=== PATIENT | female | born 1940 | race Caucasian/White ===

== ENCOUNTER 2018-02-08 15:22 | Observation (INO) ==
--- NOTE | 2018-02-08 15:27 | Urgent Care Visit Notes ---
History of Present Illness - General Stated Complaint: N/V, Headache Time Seen by Provider: 02/08/18 15:26 - Related Data Home Medications Medication Instructions Recorded Confirmed Alendronate Sodium [Fosamax] 70 mg PO SA 09/03/17 09/03/17 Calcium Carbonate [Calcium] 600 mg PO DAILY 09/03/17 09/03/17 Donepezil [Aricept] 5 mg PO HS 09/03/17 09/03/17 Ergocalciferol (VITAMIN D2) 800 unit PO DAILY 09/03/17 09/03/17 [Vitamin D] Lisinopril/Hydrochlorothiazide 1 tab PO DAILY 09/03/17 09/03/17 [Zestoretic 10-12.5 mg Tablet] Multivitamin [One Daily 1 tab PO DAILY 09/03/17 09/03/17 Multivitamin] Omeprazole [PriLOSEC] 20 mg PO DAILY 09/03/17 09/03/17 Potassium Chloride [Klor-Con 10 meq PO DAILY 09/03/17 09/03/17 Sprinkle] predniSONE [PredniSONE] 60 mg PO DAILY 09/03/17 09/03/17 Allergies Allergy/AdvReac Type Severity Reaction Status Date / Time No Known Allergies Allergy Verified 09/03/17 10:30 Headache PMH - Past Medical History Medical history: Reports: cancer, hypertension Female Surgical History: Reports: appendectomy, hysterectomy, other Psychiatric history: Reports: no psych history - Social History Smoking Status: Former smoker Alcohol use: Reports: none Drug use: Reports: none
[2018-02-08] MEDS ORDERED: Metoclopramide 10 MG/2 ML VIAL IVP ONE (16:09)
[2018-02-08] MEDS ORDERED: 0.9 % Sodium Chloride 1,000 ML IVC ONE (16:09)
[2018-02-08 16:14] LABS: Basophils % 0.3 %; Eosinophils % 0.1 %; Hematocrit 48.2 % (35.3-44.9); Hemoglobin 15.9 g/dL (11.5-15.4); Immature Granulocytes % 0.2 % (0-4); Lymphocytes # 1.9 K/mcL (0.6-4.6); Lymphocytes % 21.3 %; Mean Corpuscular Hemoglobin 29.1 pg (28.0-33.3); Mean Corpuscular Volume 88.1 fL (83.0-100.0); Mean Platelet Volume 11.3 fL (9.4-12.4); Monocytes # 0.7 K/mcL (0.0-1.3); Monocytes % 8.1 %; Neutrophils # 6.1 K/mcL (1.6-8.9); Platelet Count 250 K/mcL (140-400); Red Blood Count 5.47 M/mcL (3.82-4.97); Red Cell Distribution Width 12.8 % (11.5-14.5)
--- NOTE | 2018-02-08 16:14 | Emergency Department Note ---
Disposition Clinical Impression: Generalized weakness, Unsteady gait Head ache Qualifiers: Headache type: unspecified Headache chronicity pattern: acute headache Intractability: intractable Qualified Code(s): R51 - Headache Nausea and vomiting Qualifiers: Vomiting type: unspecified Vomiting Intractability: intractable Qualified Code( s): R11.2 - Nausea with vomiting, unspecified Disposition: Admitted As Inpatient Condition: Fair Referrals: Sanchez,Srinivas Downing MD [Primary Care Provider] - Forms: ED Satisfaction Letter General Adult HPI - General Chief complaint: ED Nausea/Vomiting/Diarrhea Stated complaint: N/V, Headache Time Seen by Provider: 02/08/18 15:26 Source: EMS Mode of arrival: EMS Limitations: no limitations Vital Signs Reviewed: Yes - History of Present Illness HPI Narrative: Ms. Alas is a 78 yo F with a hxo subacute migraines for the last month and N/ V since Thursday. She describes her JHA as pounding in nature over the frontal region and behind the eyes. is concerned that she is becoming more unsteady on her feet. She has Sumatriptan prescribed but is unable to keep anything in her stomach. She denies, fevers, cough, SOB from her baseline. Pain Scale: 0 - Related Data Home Medications Medication Instructions Recorded Confirmed Alendronate Sodium [Fosamax] 70 mg PO SA 09/03/17 02/08/18 Calcium Carbonate [Calcium] 600 mg PO DAILY 09/03/17 02/08/18 Donepezil [Aricept] 5 mg PO HS 09/03/17 02/08/18 Ergocalciferol (VITAMIN D2) 800 unit PO DAILY 09/03/17 02/08/18 [Vitamin D] Lisinopril/Hydrochlorothiazide 1 tab PO DAILY 09/03/17 02/08/18 [Zestoretic 10-12.5 mg Tablet] Multivitamin [One Daily 1 tab PO DAILY 09/03/17 02/08/18 Multivitamin] Omeprazole [PriLOSEC] 20 mg PO DAILY 09/03/17 02/08/18 predniSONE [PredniSONE] 60 mg PO DAILY 09/03/17 02/08/18 NIFEdipine [Nifedipine ER] 30 mg PO DAILY 02/08/18 02/08/18 Potassium Chloride [K-Tab ER] 20 meq PO BID 02/08/18 02/08/18 Sertraline [Zoloft] 50 mg PO DAILY 02/08/18 02/08/18 Simvastatin 80 mg PO HS 02/08/18 02/08/18 Allergies Allergy/AdvReac Type Severity Reaction Status Date / Time No Known Allergies Allergy Verified 02/08/18 15:32 Constitutional: Reports: weakness. Denies: fever, chills ENT ED: Denies: congestion Cardiovascular: Denies: chest pain, palpitations Respiratory: Reports: dyspnea (chronic). Denies: cough Gastrointestinal: Reports: nausea, vomiting. Denies: abdominal pain, diarrhea, melena, hematochezia Genitourinary: Reports: hematuria. Denies: dysuria, frequency Neurological: Reports: headache, weakness, abnormal gait. Denies: numbness, paresthesias, confusion Past Medical History - Past Medical History Medical history: Reports: cancer, hypertension Surgical history: Reports: appendectomy, hysterectomy, other Psychiatric history: Reports: no psych history - Social History Smoking Status: Former smoker Smokeless Tobacco Status: No Alcohol use: Reports: none Drug use: Reports: none Physical Exam - General General appearance: alert, in no apparent distress Course Vital Signs Temperature 97.9 F 02/08/18 15:27 Pulse Rate 72 02/08/18 15:27 Respiratory Rate 14 02/08/18 15:27 Blood Pressure 166/87 02/08/18 15:27 O2 Sat by Pulse Oximetry 96 02/08/18 15:27 Temperature 97.9 F 02/08/18 15:27 Pulse Rate 66 02/08/18 17:14 Respiratory Rate 14 02/08/18 17:14 Blood Pressure 137/65 02/08/18 17:14 O2 Sat by Pulse Oximetry 95 02/08/18 17:14 Oxygen Delivery Oxygen Delivery Nasal Cannula Medical Decision Making - Lab Data Result diagrams: 02/08/18 15:44 02/08/18 15:44 Lab Results 02/08/18 02/08/18 Range/Units 15:44 15:44 WBC 8.7 (4.3-11.1) K/mcL RBC 5.47 H (3.82-4.97) M/mcL Hgb 15.9 H (11.5-15.4) g/dL Hct 48.2 H (35.3-44.9) % MCV 88.1 (83.0-100.0) fL MCH 29.1 (28.0-33.3) pg MCHC 33.0 (31.6-35.5) g/dL RDW 12.8 (11.5-14.5) % Plt Count 250 (140-400) K/mcL MPV 11.3 (9.4-12.4) fL Immature Gran % 0.2 (0-4) % Seg Neutrophils % 70.0 % Lymphocytes % 21.3 % Monocytes % 8.1 % Eosinophils % 0.1 % Basophils % 0.3 % Neutrophils # 6.1 (1.6-8.9) K/mcL Lymphocytes # 1.9 (0.6-4.6) K/mcL Monocytes # 0.7 (0.0-1.3) K/mcL Eosinophils # 0.0 (0.0-0.6) K/mcL Basophils # 0.0 (0.0-0.2) K/mcL Sodium 136 (136-145) mEq/L Potassium 3.8 (3.5-5.1) mEq/L Chloride 98 (98-107) mEq/L Carbon Dioxide 26 (23-29) mEq/L BUN 11 (8-23) mg/dL Creatinine 0.67 (0.60-1.20) mg/dL Est GFR ( Amer) > 60 (> 60) Est GFR (Non-Af Amer) > 60 (> 60) BUN/Creatinine Ratio 16 (6-26) Glucose 184 H (70-105) mg/dL Calculated Osmolality 286 (280-300) Calcium 9.4 (8.6-10.3) mg/dL Total Bilirubin 0.7 (0.3-1.0) mg/dL Direct Bilirubin 0.2 (0.0-0.2) mg/dL Indirect Bilirubin 0.5 (0.0-1.2) mg/dL AST 20 (13-39) Units/L ALT 16 (7-52) Units/L Alkaline Phosphatase 62 (34-104) Units/L Serum Total Protein 6.7 (6.4-8.9) g/dL Albumin 4.1 (3.5-5.7) g/dL Globulin 2.6 (2.4-3.5) g/dL Albumin/Globulin Ratio 1.6 (1.1-2.2) Lipase 31 (11-82) Units/L
[2018-02-08] MEDS ORDERED: methylPREDNISolone 125 MG/2 ML VIAL IVP ONE (16:20)
[2018-02-08 16:21] LABS: Alanine Aminotransferase 16 Units/L (7-52); Albumin 4.1 g/dL (3.5-5.7); Albumin/Globulin Ratio 1.6 (1.1-2.2); Alkaline Phosphatase 62 Units/L (34-104); Aspartate Amino Transferase 20 Units/L (13-39); BUN/Creatinine Ratio 16 (6-26); Bilirubin,Direct 0.2 mg/dL (0.0-0.2); Bilirubin,Indirect 0.5 mg/dL (0.0-1.2); Bilirubin,Total 0.7 mg/dL (0.3-1.0); Blood Urea Nitrogen 11 mg/dL (8-23); Calcium 9.4 mg/dL (8.6-10.3); Carbon Dioxide 26 mEq/L (23-29); Chloride 98 mEq/L (98-107); Globulin 2.6 g/dL (2.4-3.5); Glucose 184 mg/dL (70-105); Lipase 31 Units/L (11-82); Osmolality,Calculated 286 (280-300); Potassium 3.8 mEq/L (3.5-5.1); Sodium 136 mEq/L (136-145); Total Protein 6.7 g/dL (6.4-8.9); eGFR For Non-African Americans > 60 (> 60)
--- NOTE | 2018-02-08 16:24 | Emergency Department Note ---
Disposition Clinical Impression: Generalized weakness, Unsteady gait Head ache Qualifiers: Headache type: unspecified Headache chronicity pattern: acute headache Intractability: intractable Qualified Code(s): R51 - Headache Nausea and vomiting Qualifiers: Vomiting type: unspecified Vomiting Intractability: intractable Qualified Code( s): R11.2 - Nausea with vomiting, unspecified Disposition: Admitted As Inpatient Condition: Fair Referrals: Srinivas Sanchez MD [Primary Care Provider] - Forms: ED Satisfaction Letter Time of Disposition: 17:52 General Adult HPI - General Chief complaint: ED Nausea/Vomiting/Diarrhea Stated complaint: N/V, Headache Time Seen by Provider: 02/08/18 15:26 Source: EMS Mode of arrival: EMS Limitations: no limitations Nursing Notes Reviewed: Yes Vital Signs Reviewed: Yes - History of Present Illness HPI Narrative: I have re-performed and reviewed the history documented by the medical student, and I confirm its accuracy except as noted below Onset (ago): month(s) (1) Location: head Radiation: non-radiation Pain Severity: moderate Pain Scale: 7 Quality: aching Consistency: constant Improves with: nothing Worsens with: nothing Associated symptoms: Reports: headaches, nausea/vomiting. Denies: confusion, chest pain, cough, fever/chills, malaise, shortness of breath, weakness Treatments Prior to Arrival: none - Related Data Home Medications Medication Instructions Recorded Confirmed Alendronate Sodium [Fosamax] 70 mg PO SA 09/03/17 02/08/18 Calcium Carbonate [Calcium] 600 mg PO DAILY 09/03/17 02/08/18 Donepezil [Aricept] 5 mg PO HS 09/03/17 02/08/18 Ergocalciferol (VITAMIN D2) 800 unit PO DAILY 09/03/17 02/08/18 [Vitamin D] Lisinopril/Hydrochlorothiazide 1 tab PO DAILY 09/03/17 02/08/18 [Zestoretic 10-12.5 mg Tablet] Multivitamin [One Daily 1 tab PO DAILY 09/03/17 02/08/18 Multivitamin] Omeprazole [PriLOSEC] 20 mg PO DAILY 09/03/17 02/08/18 predniSONE [PredniSONE] 60 mg PO DAILY 09/03/17 02/08/18 NIFEdipine [Nifedipine ER] 30 mg PO DAILY 02/08/18 02/08/18 Potassium Chloride [K-Tab ER] 20 meq PO BID 02/08/18 02/08/18 Sertraline [Zoloft] 50 mg PO DAILY 02/08/18 02/08/18 Simvastatin 80 mg PO HS 02/08/18 02/08/18 Allergies Allergy/AdvReac Type Severity Reaction Status Date / Time No Known Allergies Allergy Verified 02/08/18 15:32 All systems ED: reviewed and negative except as stated. Constitutional: Reports: weakness. Denies: fever, chills ENT ED: Denies: congestion Cardiovascular: Denies: chest pain, palpitations Respiratory: Reports: dyspnea (chronic). Denies: cough Gastrointestinal: Reports: nausea, vomiting. Denies: abdominal pain, diarrhea, melena, hematochezia Genitourinary: Reports: hematuria. Denies: dysuria, frequency Neurological: Reports: headache, weakness, abnormal gait. Denies: numbness, paresthesias, confusion Past Medical History - Past Medical History Attestation: Yes The following information was validated with the patient. Source: patient Medical history: Reports: cancer, hypertension Surgical history: Reports: appendectomy, hysterectomy, other Psychiatric history: Reports: no psych history - Social History Smoking Status: Former smoker Smokeless Tobacco Status: No Alcohol use: Reports: none Drug use: Reports: none Physical Exam - General Limitations: no limitations General appearance: alert, in no apparent distress - Head Head exam: atraumatic, normocephalic, normal inspection - Eye Eye exam: Present: normal appearance, EOMI, miosis - ENT ENT exam: normal exam, normal oropharynx, mucous membranes moist - Neck Neck exam: Present: normal inspection, full ROM, trachea midline - Chest Chest inspection: Present: normal inspection, symmetric chest wall rise - Respiratory Respiratory exam: Present: normal lung sounds bilaterally - Cardiovascular Cardiovascular exam: Present: regular rate, normal rhythm, normal heart sounds - Abdominal Exam Abdominal exam: Present: soft, Non-Tender. Absent: tenderness, distention, guarding, rebound, rigidity - Extremities Exam Extremities exam: Present: normal inspection, full ROM. Absent: tenderness, pedal edema - Back Exam Back exam: Present: normal inspection, full ROM. Absent: tenderness - Neurological Exam Neurological exam: Present: alert, oriented X3. Absent: motor sensory deficit - Expanded Neurological Exam Patient oriented to: Present: person, place, time Speech: Present: fluid speech Cranial nerves: EOM function (II, III, IV, ): Normal, facial sensation (V): Normal, facial palsy (VII): Normal, spinal accessory function (XI): Normal, tongue deviation (XII): Normal Cerebellar function: finger to nose: Normal, heel to shepherd: Normal Cerebellar function: wide-based gait Motor strength - LUE: 5/5 Motor strength - RUE: 5/5 Motor strength - LLE: 5/5 Motor strength - RLE: 5/5 Upper motor neuron exam: pronator drift: Absent bilaterally Sensory exam upper extremity: light touch: Normal Sensory exam lower extremity: light touch: Normal Coma Scale Eye Opening: Spontaneous Coma Scale Motor Response: Obeys Commands Coma Scale Verbal Response: Oriented Coma Scale Total: 15 - Psychiatric Psychiatric exam: Present: normal affect, normal mood - Skin Skin exam: Present: warm, dry, intact, normal color Course Course Narrative: Patient seen and examined. Nausea vomiting and headache. Headache for one month and now nausea and vomiting persistent over the last 3 days. Upon my examination, patient is currently nauseated. Her is concerned because she has been having more and more difficulty walking due to feeling off balance. He called the squad because he was worried about her falling if he tried to get her up. Patient's headache was not sudden in onset. It was not related with exertion. She does have a history of temporal cell arteritis for which she follows with Dr. Gonzales. He is on low-dose prednisone daily. We will give a dose of 125 mg Solu-Medrol as well as Reglan and Benadryl to see if this helps with her headache. Patient's pupils are miotic though she is not on any narcotic pain medication. With the concern for patient's gait, we will go ahead and order a CT of the head as well as basic lab work. We will likely admit for concern for a central cause of her nausea vomiting and headache. 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 I discussed with the radiologist who read the film who states that it is largely unchanged from her prior images. Also states that the current neurologic symptoms would not correlate with the location of the ICA aneurysm. I also discussed with neurology Dr. Biswas who agrees that the location of the aneurysm does not correlate with her current symptoms. Concern is more for posterior fossa cva. They will consult on the patient. Recommend some IV fluids and admission for MRI in the morning. I discussed with the hospitalist Dr. Devine who has accepted patient for admission. Would like an aspirin ordered. This has been done. Time: 18:05 Vital Signs Temperature 97.9 F 02/08/18 15:27 Pulse Rate 72 02/08/18 15:27 Respiratory Rate 14 02/08/18 15:27 Blood Pressure 166/87 02/08/18 15:27 O2 Sat by Pulse Oximetry 96 02/08/18 15:27 Temperature 97.9 F 02/08/18 15:27 Pulse Rate 66 02/08/18 17:14 Respiratory Rate 14 02/08/18 17:14 Blood Pressure 137/65 02/08/18 17:14 O2 Sat by Pulse Oximetry 95 02/08/18 17:14 Oxygen Delivery Oxygen Delivery Nasal Cannula Medical Decision Making - Medical Records Medical records reviewed: Yes I reviewed the patient's medical records. - Lab Data Lab results reviewed: Yes I reviewed the patient's lab results. Result diagrams: 02/08/18 15:44 02/08/18 15:44 Lab Results 02/08/18 02/08/18 Range/Units 15:44 15:44 WBC 8.7 (4.3-11.1) K/mcL RBC 5.47 H (3.82-4.97) M/mcL Hgb 15.9 H (11.5-15.4) g/dL Hct 48.2 H (35.3-44.9) % MCV 88.1 (83.0-100.0) fL MCH 29.1 (28.0-33.3) pg MCHC 33.0 (31.6-35.5) g/dL RDW 12.8 (11.5-14.5) % Plt Count 250 (140-400) K/mcL MPV 11.3 (9.4-12.4) fL Immature Gran % 0.2 (0-4) % Seg Neutrophils % 70.0 % Lymphocytes % 21.3 % Monocytes % 8.1 % Eosinophils % 0.1 % Basophils % 0.3 % Neutrophils # 6.1 (1.6-8.9) K/mcL Lymphocytes # 1.9 (0.6-4.6) K/mcL Monocytes # 0.7 (0.0-1.3) K/mcL Eosinophils # 0.0 (0.0-0.6) K/mcL Basophils # 0.0 (0.0-0.2) K/mcL Sodium 136 (136-145) mEq/L Potassium 3.8 (3.5-5.1) mEq/L Chloride 98 (98-107) mEq/L Carbon Dioxide 26 (23-29) mEq/L BUN 11 (8-23) mg/dL Creatinine 0.67 (0.60-1.20) mg/dL Est GFR ( Amer) > 60 (> 60) Est GFR (Non-Af Amer) > 60 (> 60) BUN/Creatinine Ratio 16 (6-26) Glucose 184 H (70-105) mg/dL Calculated Osmolality 286 (280-300) Calcium 9.4 (8.6-10.3) mg/dL Total Bilirubin 0.7 (0.3-1.0) mg/dL Direct Bilirubin 0.2 (0.0-0.2) mg/dL Indirect Bilirubin 0.5 (0.0-1.2) mg/dL AST 20 (13-39) Units/L ALT 16 (7-52) Units/L Alkaline Phosphatase 62 (34-104) Units/L Serum Total Protein 6.7 (6.4-8.9) g/dL Albumin 4.1 (3.5-5.7) g/dL Globulin 2.6 (2.4-3.5) g/dL Albumin/Globulin Ratio 1.6 (1.1-2.2) Lipase 31 (11-82) Units/L - Radiology Data Radiology results reviewed: Yes I reviewed the patient's radiology results. Head CT 02/08/18 16:07 IMPRESSION: 1. No acute intracranial abnormality. 2. 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 3. Right cavernous ICA aneurysm, better seen on the CTA from 07/09/2017, stable. D/ / 02/08/2018 17:33:34 Mg Anna MD / Karyna Jarvis Interpreting Provider: Mg Anna MD
--- NOTE | 2018-02-08 17:12 | Emergency Department Note ---
Disposition Clinical Impression: Nausea and vomiting, Generalized weakness, Carotid aneurysm, right Head ache Qualifiers: Headache type: unspecified Headache chronicity pattern: acute headache Intractability: intractable Qualified Code(s): R51 - Headache Disposition: Still a Patient Referrals: Srinivas Sanchez MD [Primary Care Provider] - Forms: ED Satisfaction Letter General Adult HPI - General Chief complaint: ED Nausea/Vomiting/Diarrhea Stated complaint: N/V, Headache Time Seen by Provider: 02/08/18 15:26 Source: EMS Mode of arrival: EMS Limitations: no limitations - History of Present Illness Location: head Pain Scale: 7 Quality: aching Improves with: nothing Worsens with: nothing Associated symptoms: Reports: headaches, nausea/vomiting. Denies: confusion, chest pain, cough, fever/chills, malaise, shortness of breath, weakness Treatments Prior to Arrival: none - Related Data Home Medications Medication Instructions Recorded Confirmed Alendronate Sodium [Fosamax] 70 mg PO SA 09/03/17 02/08/18 Calcium Carbonate [Calcium] 600 mg PO DAILY 09/03/17 02/08/18 Donepezil [Aricept] 5 mg PO HS 09/03/17 02/08/18 Ergocalciferol (VITAMIN D2) 800 unit PO DAILY 09/03/17 02/08/18 [Vitamin D] Lisinopril/Hydrochlorothiazide 1 tab PO DAILY 09/03/17 02/08/18 [Zestoretic 10-12.5 mg Tablet] Multivitamin [One Daily 1 tab PO DAILY 09/03/17 02/08/18 Multivitamin] Omeprazole [PriLOSEC] 20 mg PO DAILY 09/03/17 02/08/18 predniSONE [PredniSONE] 60 mg PO DAILY 09/03/17 02/08/18 NIFEdipine [Nifedipine ER] 30 mg PO DAILY 02/08/18 02/08/18 Potassium Chloride [K-Tab ER] 20 meq PO BID 02/08/18 02/08/18 Sertraline [Zoloft] 50 mg PO DAILY 02/08/18 02/08/18 Simvastatin 80 mg PO HS 02/08/18 02/08/18 Allergies Allergy/AdvReac Type Severity Reaction Status Date / Time No Known Allergies Allergy Verified 02/08/18 15:32 Constitutional: Reports: weakness. Denies: fever, chills ENT ED: Denies: congestion Cardiovascular: Denies: chest pain, palpitations Respiratory: Reports: dyspnea (chronic). Denies: cough Gastrointestinal: Reports: nausea, vomiting. Denies: abdominal pain, diarrhea, melena, hematochezia Genitourinary: Reports: hematuria. Denies: dysuria, frequency Neurological: Reports: headache, weakness, abnormal gait. Denies: numbness, paresthesias, confusion Past Medical History - Past Medical History Medical history: Reports: cancer, hypertension Surgical history: Reports: appendectomy, hysterectomy, other Psychiatric history: Reports: no psych history - Social History Smoking Status: Former smoker Smokeless Tobacco Status: No Alcohol use: Reports: none Drug use: Reports: none Physical Exam - General Limitations: no limitations General appearance: alert, in no apparent distress Course Vital Signs Temperature 97.9 F 02/08/18 15:27 Pulse Rate 72 02/08/18 15:27 Respiratory Rate 14 02/08/18 15:27 Blood Pressure 166/87 02/08/18 15:27 O2 Sat by Pulse Oximetry 96 02/08/18 15:27 Temperature 97.9 F 02/08/18 15:27 Pulse Rate 66 02/08/18 17:14 Respiratory Rate 14 02/08/18 17:14 Blood Pressure 137/65 02/08/18 17:14 O2 Sat by Pulse Oximetry 95 02/08/18 17:14 Oxygen Delivery Oxygen Delivery Nasal Cannula Medical Decision Making - Lab Data Result diagrams: 02/08/18 15:44 02/08/18 15:44 Lab Results 02/08/18 02/08/18 Range/Units 15:44 15:44 WBC 8.7 (4.3-11.1) K/mcL RBC 5.47 H (3.82-4.97) M/mcL Hgb 15.9 H (11.5-15.4) g/dL Hct 48.2 H (35.3-44.9) % MCV 88.1 (83.0-100.0) fL MCH 29.1 (28.0-33.3) pg MCHC 33.0 (31.6-35.5) g/dL RDW 12.8 (11.5-14.5) % Plt Count 250 (140-400) K/mcL MPV 11.3 (9.4-12.4) fL Immature Gran % 0.2 (0-4) % Seg Neutrophils % 70.0 % Lymphocytes % 21.3 % Monocytes % 8.1 % Eosinophils % 0.1 % Basophils % 0.3 % Neutrophils # 6.1 (1.6-8.9) K/mcL Lymphocytes # 1.9 (0.6-4.6) K/mcL Monocytes # 0.7 (0.0-1.3) K/mcL Eosinophils # 0.0 (0.0-0.6) K/mcL Basophils # 0.0 (0.0-0.2) K/mcL Sodium 136 (136-145) mEq/L Potassium 3.8 (3.5-5.1) mEq/L Chloride 98 (98-107) mEq/L Carbon Dioxide 26 (23-29) mEq/L BUN 11 (8-23) mg/dL Creatinine 0.67 (0.60-1.20) mg/dL Est GFR ( Amer) > 60 (> 60) Est GFR (Non-Af Amer) > 60 (> 60) BUN/Creatinine Ratio 16 (6-26) Glucose 184 H (70-105) mg/dL Calculated Osmolality 286 (280-300) Calcium 9.4 (8.6-10.3) mg/dL Total Bilirubin 0.7 (0.3-1.0) mg/dL Direct Bilirubin 0.2 (0.0-0.2) mg/dL Indirect Bilirubin 0.5 (0.0-1.2) mg/dL AST 20 (13-39) Units/L ALT 16 (7-52) Units/L Alkaline Phosphatase 62 (34-104) Units/L Serum Total Protein 6.7 (6.4-8.9) g/dL Albumin 4.1 (3.5-5.7) g/dL Globulin 2.6 (2.4-3.5) g/dL Albumin/Globulin Ratio 1.6 (1.1-2.2) Lipase 31 (11-82) Units/L Attestation Statement - Attestation Attestation: I examined this patient and my medical decision-making was reviewed with the Resident Physician. I agree with the documented findings, disposition and treatment plan as described except to the extent set forth below. 78 yo F Here for n/v and headache. sx worse over one month. now having problems with ambulation pt with severe nausea and not eating or drinking will do CTA head and neck due to this worsening headache. She has no focal motor or sensory deficits although she does have some pinpoint pupils bilaterally. She denies taking any narcotics other than tramadol. She denies any trauma to the head. No fevers or neck pain or stiffness. Patient did not ambulate well in the emergency room. anticipate admission Patient had a remote history of temporal arteritis. She does take a low dose of prednisone daily prescribed by her primary physician. She has no pain on this presentation like she had at those times.
[2018-02-08] MEDS ORDERED: Isovue-370 500 ML INFUS..BTL IV ONE (17:53)
[2018-02-08] MEDS ORDERED: Aspirin 325 MG TABLET PO ONE (17:55)
[2018-02-08 20:24] LABS: Bilirubin,Urine Small (Negative); Blood,Urine Negative (Negative); Clarity,Urine Clear (Clear); Color,Urine Yellow (Yellow); Glucose,Urine (UA) 250 mg/dL (Normal); Ketones,Urine 80 mg/dL (Negative); Leukocyte Esterase,Urine Small (Negative); Nitrite,Urine Negative (Negative); Protein,Urine Trace mg/dL (Neg-Trace); Specific Gravity,Urine > 1.030 (1.010-1.025); Urobilinogen,Urine Normal (Normal)
[2018-02-08 20:27] LABS: Bacteria,Urine None Seen per hpf (None-Few); Hyaline Casts,Urine None Seen per lpf (None-Few); Squamous Epithelial Cell,Urine Many per lpf (None-Few)
[2018-02-09] MEDS ORDERED: Naloxone 0.4 MG/ML INJ IVP PRN (07:53)
--- NOTE | 2018-02-09 08:47 | Neurology - Consult Note ---
<Nilsa Panda P - Last Filed: 02/09/18 14:24> Date of Encounter: 02/09/18 Time of Encounter: 10:00 Assessment and Plan (1) Head ache Current Visit: Yes Status: Acute She has history of headache for a couple of months especially periorbital and frontal region This time she had severe headache with nausea and vomiting and problem with body balance, rates her headache 8-9/10 She has h/o temporal arteritis , subacute migraine and she is on low dose steroid by her PCP Nausea , vomiting and ataxia has been resolved , but complains about persistent headache CT head: No acute intracranial pathology , Right cavernous aneurysm( as noticed before) MRI:No acute infarct, intracranial hemorrhage, redemonstration of large right cavernous aneurysm. No MRI evidence of acute subarachnoid hemorrhage. Plan : will review after all report Qualifiers: Headache type: unspecified Headache chronicity pattern: chronic headache Intractability: not intractable Qualified Code(s): R51 - Headache History of Present Illness Chief complaint: Headache , nausea and vomiting HPI: Ms. Alas is a 78 year old female admitted in [facility] for headache for one month and nausea and vomiting for last 3-4 days. She describes her headache is ponding in nature, 8-9/10 in intensity, localized to frontal region and behind the eyes. She denies any tinnitus, fullness in ears,loss of hearing She has had problem with difficulty walking and maintaining body balance. She has history of temporal arteries, following up with [facility] and she is on low-dose prednisone daily. The patient denies fever, cough, SOB Today the patient was comfortable in bed , well oriented to time place and person . She states that her nausea, vomiting has resolved. Her problem with body balance is mch better now, but still she has headache . Patient Vitals : Tem 97.9, BP 107/64 , sat 94% Lab 8.7 Na 136, K 3.8 BUN 11, creatinine 0.67, glucose 184 CT head Brain : No acute intracranial abnormality. 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,Right cavernous ICA aneurysm, MRI awaited Past Med Surg Social Fam HX - Past Medical History Medical history: cancer, hypertension Additional medical history: uterine cancer Psychiatric history: no psych history - Past Surgical History Surgical History: appendectomy, hysterectomy, other Additional surgical history: shoulder replacement, spine surgery - Social History Smoking Status: Former smoker Smokeless Tobacco Status: No Alcohol use: none Drug use: none - Family History Mother Living Status: Hx Family Endocrine Disorder: Yes Medications and Allergies Alendronate Sodium [Fosamax] 70 mg PO SA 09/03/17 [History] Calcium Carbonate [Calcium] 600 mg PO DAILY 09/03/17 [History] Donepezil [Aricept] 5 mg PO HS 09/03/17 [History] Ergocalciferol (VITAMIN D2) [Vitamin D] 800 unit PO DAILY 09/03/17 [History] Lisinopril/Hydrochlorothiazide [Zestoretic 10-12.5 mg Tablet] 1 tab PO DAILY 10/16 [History] Multivitamin [One Daily Multivitamin] 1 tab PO DAILY 09/03/17 [History] Omeprazole [PriLOSEC] 20 mg PO DAILY 09/03/17 [History] NIFEdipine [Nifedipine ER] 30 mg PO DAILY 02/08/18 [History] Potassium Chloride [K-Tab ER] 20 meq PO BID 02/08/18 [History] Sertraline [Zoloft] 50 mg PO DAILY 02/08/18 [History] Simvastatin 80 mg PO HS 02/08/18 [History] predniSONE [PredniSONE] 7.5 mg PO DAILY 02/09/18 [History] 3 Allergy/AdvReac Type Severity Reaction Status Date / Time No Known Allergies Allergy Verified 02/08/18 15:32 All Systems: The remainder of the systems were reviewed and are negative Physical Examination - Vital Signs Vital Signs: Initial Vital Signs Temp Pulse Resp BP Pulse Ox 97.9 F 72 14 166/87 96 02/08/18 15:27 02/08/18 15:27 02/08/18 15:27 02/08/18 15:27 02/08/18 15:27 - Constitutional General appearance: comfortable - Neurologic Sensorimotor examination: intact Detailed motor examination: full strength in all major muscle groups Motor examination - right side: 5/5: deltoids, biceps, triceps, wrist flexion, wrist extension, machine umbrella tipper, hip flexors, tibialis Anterior, quadriceps, toe extension (EHL), plantarflexion Motor examination - left side: 5/5: deltoids, biceps, triceps, wrist flexion, wrist extension, hip flexors, machine umbrella tipper, quadriceps, tibialis Anterior, toe extension (EHL), plantarflexion Detailed sensory examination: intact Reflex and gait examination: normal gait Reflexes: Biceps: 2+, Triceps: 2+, Brachioradialis: 2+, Patella: 2+, Achilles: 2 + Mental Status Examination: awake, alert, oriented to person, oriented to place, oriented to time, follows commands appropriately, answers questions appropriately, no aphasia Cranial nerve examination: PERRL, EOMI, visual cervantes intact, sensory to face intact, no facial asymmetry is present, no dysarthria Cerebellar examination: no gait ataxia Results - Laboratory Findings CBC and BMP: 02/08/18 15:44 02/08/18 15:44 Abnormal lab findings: Abnormal lab results RBC 5.47 M/mcL (3.82-4.97) H 02/08/18 15:44 Hgb 15.9 g/dL (11.5-15.4) H 02/08/18 15:44 Hct 48.2 % (35.3-44.9) H 02/08/18 15:44 Glucose 184 mg/dL (70-105) H 02/08/18 15:44 POC Glucose 157 mg/dL (70-99) H 02/09/18 07:02 Ur Specific [place] > 1.030 (1.010-1.025) H 02/08/18 20:13 Urine Glucose (UA) 250 mg/dL (Normal) H 02/08/18 20:13 Urine Ketones 80 mg/dL (Negative) H 02/08/18 20:13 Urine Bilirubin Small (Negative) H 02/08/18 20:13 Ur Leukocyte Esterase Small (Negative) H 02/08/18 20:13 Urine Microscopic RBC 3-5 per hpf (0-3) H 02/08/18 20:13 Urine Microscopic WBC 5-15 per hpf (0-3) H 02/08/18 20:13 Ur Squamous Epith Cells Many per lpf (None-Few) H 02/08/18 20:13 Ur Culture Indicated? NO. (NO) A 02/08/18 20:13 Consult Discharge Plan - Plan Referrals: Srinivas Sanchez MD [Primary Care Provider] - <Shemar Biswas I - Last Filed: 02/09/18 15:22> Date of Encounter: 02/09/18 Assessment and Plan (1) Severe frontal headaches Current Visit: Yes Status: Acute Pt was seen and examined, my medical decision was reviewed with the Resident Physician, I agree with the documented findings, disposition and treatment plas as described except to the extent set forth below This 78 years old female who was admitted with these history of chronic frontal headaches, predominantly in the front of the head without much photophobia but did have some nausea and vomiting due to the severity of these headaches earlier she did have some difficulty with a gait and balance that has been resolved now. There is no other associated symptoms including vision changes and no other focal findings on current neurological examination. Just had an MRI of the brain that shows no acute abnormality in particularly no evidence of any acute infarct Chronic small vessel ischemic white matter disease and diffuse cerebral volume loss. Redemonstration of large right cavernous aneurysm. ( NO MEASUREMENT GIVEN) No MRI evidence of acute subarachnoid hemorrhage. She also has a CT of the head earlier that did not show any significant change in the size of the aneurysm as compared to the previous his studies in July Patient has been following by rheumatology with the concern of giant cell arteritis though no evidence of any arteritis noted on CT angiogram of the head Patient also has a biopsy of for right temporal artery and that was negative but she has been on steroids for a while. 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 Alas is a 78 year old female All Systems: The remainder of the systems were reviewed and are negative Physical Examination - Vital Signs Vital Signs: Initial Vital Signs Temp Pulse Resp BP Pulse Ox 97.9 F 72 14 166/87 96 02/08/18 15:27 02/08/18 15:27 02/08/18 15:27 02/08/18 15:27 02/08/18 15:27 Results - Laboratory Findings CBC and BMP: 02/08/18 15:44 02/08/18 15:44 Abnormal lab findings: Abnormal lab results RBC 5.47 M/mcL (3.82-4.97) H 02/08/18 15:44 Hgb 15.9 g/dL (11.5-15.4) H 02/08/18 15:44 Hct 48.2 % (35.3-44.9) H 02/08/18 15:44 Glucose 184 mg/dL (70-105) H 02/08/18 15:44 POC Glucose 148 mg/dL (70-99) H 02/09/18 12:22 Ur Specific [place] > 1.030 (1.010-1.025) H 02/08/18 20:13 Urine Glucose (UA) 250 mg/dL (Normal) H 02/08/18 20:13 Urine Ketones 80 mg/dL (Negative) H 02/08/18 20:13 Urine Bilirubin Small (Negative) H 02/08/18 20:13 Ur Leukocyte Esterase Small (Negative) H 02/08/18 20:13 Urine Microscopic RBC 3-5 per hpf (0-3) H 02/08/18 20:13 Urine Microscopic WBC 5-15 per hpf (0-3) H 02/08/18 20:13 Ur Squamous Epith Cells Many per lpf (None-Few) H 02/08/18 20:13 Ur Culture Indicated? NO. (NO) A 02/08/18 20:13
[2018-02-09] MEDS: Cholecalciferol (D-3) 1,000 UNIT TABLET PO SCH ×2 (14:20→14:26)
[2018-02-09] MEDS: predniSONE 20 MG TABLET PO SCH ×2 (14:20→14:21)
[2018-02-09] MEDS: Multivit/Ca/Min/Fe/FA 1 TAB TABLET PO SCH ×2 (14:21→14:27)
[2018-02-09] MEDS: Insulin LISPRO 300 UNITS/3 ML VIAL SQ SCH ×3 (14:25→17:49)
[2018-02-09] MEDS ORDERED: SUMAtriptan succinate 25 MG TABLET PO PRN (14:44)
--- NOTE | 2018-02-09 14:52 | Internal Med History&Physical ---
Date of Encounter: 02/09/18 Time of Encounter: 11:10 Internal Medicine - H&P: HPI Chief complaint: headache Admitted From: Home History of present illness: Ms. Alas is a 78 year old female with past medical history of migraine, GCA, hypertension, presented to the ED yesterday with 2 week history of headache. Bifrontal, 8/10 in intensity, nonradiating, associated with photophobia and N/V for the last 3-4 days. She was not able to tolerate any oral medications at home. She has also had unsteady gait for the same duration of time. No blurring of vision, focal weakness/numbness, facial droop, dysarthria, or dysphagia. No neck stiffness, fevers/chills, chest pain, shortness of breath, abdominal pain, dysuria, urinary frequency, or sick contacts recently. She is following with plant operations coordinator as an outpatient and is currently on tapering dose of steroids for her GCA. In the ED, she was afebrile and hemodynamically stable. Labs were unremarkable. CT head did not show any acute intracranial processes. MRI was performed this morning and a preliminary report shows that there is no acute infarct or intracranial hemorrhage. Patient was admitted for further management. Past Med Surg Social Fam HX - Past Medical History Attestation: Yes The following information was validated with the patient. Medical history: cancer, hypertension Additional medical history: uterine cancer Psychiatric history: no psych history - Past Surgical History Surgical History: appendectomy, hysterectomy, other Additional surgical history: shoulder replacement, spine surgery - Social History Smoking Status: Former smoker Smokeless Tobacco Status: No Alcohol use: none Drug use: none - Family History Mother Living Status: Hx Family Endocrine Disorder: Yes Internal Medicine - H&P: Meds Alendronate Sodium [Fosamax] 70 mg PO SA 09/03/17 [History] Calcium Carbonate [Calcium] 600 mg PO DAILY 09/03/17 [History] Donepezil [Aricept] 5 mg PO HS 09/03/17 [History] Ergocalciferol (VITAMIN D2) [Vitamin D] 800 unit PO DAILY 09/03/17 [History] Lisinopril/Hydrochlorothiazide [Zestoretic 10-12.5 mg Tablet] 1 tab PO DAILY 10/16 [History] Multivitamin [One Daily Multivitamin] 1 tab PO DAILY 09/03/17 [History] Omeprazole [PriLOSEC] 20 mg PO DAILY 09/03/17 [History] NIFEdipine [Nifedipine ER] 30 mg PO DAILY 02/08/18 [History] Potassium Chloride [K-Tab ER] 20 meq PO BID 02/08/18 [History] Sertraline [Zoloft] 50 mg PO DAILY 02/08/18 [History] Simvastatin 80 mg PO HS 02/08/18 [History] predniSONE [PredniSONE] 7.5 mg PO DAILY 02/09/18 [History] 3 Allergy/AdvReac Type Severity Reaction Status Date / Time No Known Allergies Allergy Verified 02/08/18 15:32 All Systems PM: A 10-system review of systems was performed and is negative for pertinent findings except as documented above in the HPI. - Constitutional Vitals: Temp Pulse Resp BP Pulse Ox 97.6 F 82 15 96/61 98 02/09/18 14:06 02/09/18 14:06 02/09/18 14:06 02/09/18 14:06 02/09/18 14:06 Exam: General: Alert and oriented, not in acute distress. HEENT:EOM, pupils equal, round and reactive. No nystagmus Cardiovascular:Normal S1 & S2, No JVD. Pulse regular. Lungs: clear to auscultation, no wheezes/rales Abdomen:Soft, non-tender, no rigidity. Extremities:No deformity or swelling Neurological: CN II-XII intact, no cerebellar signs. Babinski downgoing bilaterally. Power and sensation full in both UE and LEs. Skin:Normal color, no rash, no lesions. Pulses:Carotid and radial pulses normal +2. Rest of the physical exam is non contributory Internal Med - H&P Results - Labs CBC & Chem 7: 02/08/18 15:44 02/08/18 15:44 - Impressions ITS Impressions Brain MRI 02/09/18 07:57 IMPRESSION: No acute infarct, intracranial hemorrhage, significant mass effect. Chronic small vessel ischemic white matter disease and diffuse cerebral volume loss. Redemonstration of large right cavernous aneurysm. No MRI evidence of acute subarachnoid hemorrhage. D/ / 02/09/2018 12:18:22 Paulo Arceo MD / [facility] Interpreting Provider: Paulo Arceo MD - Assessment and plan (1) Head ache Current Visit: Yes Status: Acute Assessment and plan: Unclear etiology but may be related to her migraine. Was unable to tolerate PO meds at home, now improved PRN imitrex anti-emetics follow up on final MRI report neuro consult placed in the ED PT/OT, likely d/c tomorrow if continues to improve Qualifiers: Headache type: unspecified Headache chronicity pattern: chronic headache Intractability: not intractable Qualified Code(s): R51 - Headache (2) GCA (giant cell arteritis) Current Visit: Yes Status: Acute Assessment and plan: On tapering dose of steroids as per her outpatient regime (3) Hypertension Current Visit: Yes Status: Acute Assessment and plan: Continue home meds Qualifiers: Hypertension type: essential hypertension Qualified Code(s): I10 - Essential (primary) hypertension (4) Depression Current Visit: Yes Status: Acute Assessment and plan: Continue Zoloft Qualifiers: Depression Type: unspecified Qualified Code(s): F32.9 - Major depressive disorder, single episode, unspecified (5) DVT prophylaxis Current Visit: Yes Status: Acute Assessment and plan: Subcutaneous heparin - Time Spent With Patient Total time spent is greater than 50% in coordination of care (as documented) at patient's floor/unit and/or counseling patient:
[2018-02-09] MEDS ORDERED: Acetaminophen/Butalbital/CaffeineTABLET PO PRN (15:24)
[2018-02-09] MEDS: NIFEdipine XL (24 HR) 30 MG TAB.ER.24 PO SCH (15:41)
[2018-02-09] MEDS: *HR* Heparin 5,000 UNIT/ML VIAL SQ SCH (17:48)
[2018-02-10] MEDS: *HR* Heparin 5,000 UNIT/ML VIAL SQ SCH (06:28)
[2018-02-10] MEDS ORDERED: predniSONE 5 MG TABLET PO SCH (09:00)
[2018-02-10] MEDS: Multivit/Ca/Min/Fe/FA 1 TAB TABLET PO SCH (09:47)
[2018-02-10] MEDS: NIFEdipine XL (24 HR) 30 MG TAB.ER.24 PO SCH (09:47)
[2018-02-10] MEDS: Cholecalciferol (D-3) 1,000 UNIT TABLET PO SCH (09:47)
[2018-02-10] MEDS: Insulin LISPRO 300 UNITS/3 ML VIAL SQ SCH (09:47)
--- NOTE | 2018-02-10 10:20 | Discharge Summary ---
- NOTES TO OUTPATIENT PROVIDER Notes to Outpatient Provider: Patient was admitted for intractable headache likely due to poorly controlled migraine. Headache not characteristic of giant cell arteritis. Imagings unremarkable. She will be discharged home with oral Fioricet and Elavil for prophylaxis. Date of Encounter: 02/10/18 Time of Encounter: 08:20 - Discharge Diagnosis (1) Head ache Priority: Primary Status: Acute Qualifiers: Headache type: unspecified Headache chronicity pattern: chronic headache Intractability: not intractable Qualified Code(s): R51 - Headache (2) GCA (giant cell arteritis) Priority: Secondary Status: Acute (3) Hypertension Priority: Secondary Status: Acute Qualifiers: Hypertension type: essential hypertension Qualified Code(s): I10 - Essential (primary) hypertension (4) Depression Priority: Secondary Status: Acute Qualifiers: Depression Type: unspecified Qualified Code(s): F32.9 - Major depressive disorder, single episode, unspecified (5) DVT prophylaxis Priority: Secondary Status: Acute Hospital course: Ms. Alas is a 78 year old female with history of GCA and migraine was admitted for intractable headache likely due to poorly controlled migraine. Headache not characteristic of giant cell arteritis. Imagings unremarkable. She will be discharged home with oral Fioricet and Elavil for prophylaxis. Also advised to continue her tapering dose of steroids for GCA as prescribed by her silica spray mixer. Discharge discussed with: patient - Time Spent with Patient Total time spent providing and/or coordinating discharge services: Greater than 30 minutes - Discharge Medications Prescriptions: Acetaminophen/Butalbital/Caffe [Fioricet] 1 each PO Q6HR PRN #30 tablet PRN Reason: Headache Amitriptyline [Elavil] 25 mg PO HS #30 tablet Home Medications: Alendronate Sodium [Fosamax] 70 mg PO SA 09/03/17 [History] Calcium Carbonate [Calcium] 600 mg PO DAILY 09/03/17 [History] Donepezil [Aricept] 5 mg PO HS 09/03/17 [History] Ergocalciferol (VITAMIN D2) [Vitamin D] 800 unit PO DAILY 09/03/17 [History] Lisinopril/Hydrochlorothiazide [Zestoretic 10-12.5 mg Tablet] 1 tab PO DAILY 10/16 [History] Multivitamin [One Daily Multivitamin] 1 tab PO DAILY 09/03/17 [History] Omeprazole [PriLOSEC] 20 mg PO DAILY 09/03/17 [History] NIFEdipine [Nifedipine ER] 30 mg PO DAILY 02/08/18 [History] Potassium Chloride [K-Tab ER] 20 meq PO BID 02/08/18 [History] Sertraline [Zoloft] 50 mg PO DAILY 02/08/18 [History] Simvastatin 80 mg PO HS 02/08/18 [History] predniSONE [PredniSONE] 7.5 mg PO DAILY 02/09/18 [History] Acetaminophen/Butalbital/Caffe [Fioricet] 1 each PO Q6HR PRN #30 tablet [Rx] Amitriptyline [Elavil] 25 mg PO HS #30 tablet 02/10/18 [Rx] Allergies/Adverse Reactions: 3 Allergy/AdvReac Type Severity Reaction Status Date / Time No Known Allergies Allergy Verified 02/08/18 15:32 Date of admission: 02/08/18 20:58 Primary care physician: Srinivas Sanchez MD Consults: 02/09/18 07:54 Consult to Physical Therapy [CONS] Routine Comment: Evaluate, develop and implement POC Reason for Consult: home safety assessment Does patient have active BEDREST order?: No Is patient medically & hemodynamically stable?: Yes - Constitutional Vitals: Temp Pulse Resp BP Pulse Ox 97.9 F 67 16 146/95 93 02/10/18 07:50 02/10/18 07:50 02/10/18 07:50 02/10/18 07:50 02/10/18 07:50 Exam: General: Alert and oriented, not in acute distress. HEENT:EOM, pupils equal, round and reactive. No nystagmus Cardiovascular:Normal S1 & S2, No JVD. Pulse regular. Lungs: clear to auscultation, no wheezes/rales Abdomen:Soft, non-tender, no rigidity. Extremities:No deformity or swelling Neurological: CN II-XII intact, no cerebellar signs. Babinski downgoing bilaterally. Power and sensation full in both UE and LEs. Skin:Normal color, no rash, no lesions. Pulses:Carotid and radial pulses normal +2. Rest of the physical exam is non contributory - Patient Status Disposition: Home, Self-Care Condition: Fair Functional capacity at discharge: independent ambulation Overall status at discharge: patient is progressing back to baseline - Discharge Instructions Instructions: Chronic Hypertension (DC) Follow Up With: Srinivas Sanchez MD [Primary Care Provider] - - Diet and Activity Activity: resume usual activities as tolerated Diet: regular diet
[2018-02-10 11:58] VITALS: BP 114/74
== END 2018-02-10 12:42 | disposition home or self-care (01) ==
LOC: 3ANU 15:22 → EMEROOARM 15:22 → SUATTDRO 20:58 → 3ANU 21:19
PROVIDERS: ADMIT Internal Medicine; ATTEND Internal Medicine

== ENCOUNTER 2018-10-06 11:40 | Inpatient (IN) ==
[2018-10-06] MEDS ORDERED: Isovue-370 500 ML BOTTLE IVP ONE (11:55)
[2018-10-06 12:12] LABS: Hematocrit 44.7 % (35.3-44.9); Hemoglobin 14.6 g/dL (11.5-15.4); Mean Corpuscular HGB Conc 32.7 g/dL (31.6-35.5); Mean Corpuscular Hemoglobin 29.2 pg (28.0-33.3); Mean Corpuscular Volume 89.4 fL (83.0-100.0); Mean Platelet Volume 11.4 fL (9.4-12.4); Platelet Count 245 K/mcL (140-400); Red Cell Distribution Width 12.5 % (11.5-14.5)
[2018-10-06 12:22] LABS: INR 1.1; Prothrombin Time 12.1 Seconds (9.4-12.1)
[2018-10-06 12:24] LABS: Activated Partial Thrombo Time 29.3 Seconds (26.0-36.0)
[2018-10-06 12:31] LABS: BUN/Creatinine Ratio 16 (6-26); Blood Urea Nitrogen 12 mg/dL (8-23); Calcium 9.2 mg/dL (8.6-10.3); Carbon Dioxide 27 mEq/L (23-29); Chloride 100 mEq/L (98-107); Glucose 210 mg/dL (70-105); Osmolality,Calculated 288 (280-300); Potassium 3.7 mEq/L (3.5-5.1); Sodium 136 mEq/L (136-145); eGFR For Non-African Americans > 60 (> 60)
[2018-10-06 12:33] LABS: Troponin I < 0.03 ng/mL (< 0.04)
--- NOTE | 2018-10-06 13:06 | Emergency Department Note ---
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 Cerebrovascular accident Qualifiers: CVA mechanism: unspecified Qualified Code(s): I63.9 - Cerebral infarction, unspecified Disposition: Admitted As Inpatient Condition: Fair Time of Disposition: 14:54 Neuro HPI - General Chief Complaint: ED Neuro Symptoms/Deficit Stated Complaint: stroke symptoms Time Seen by Provider: 10/06/18 11:46 Source: patient, EMS Nursing Notes Reviewed: Yes Vital Signs Reviewed: Yes - History of Present Illness HPI Narrative: Presents with right arm and leg numbness which began last night at 9:00 at home and is constant and is worse this morning and she woke up and presents per EMS and I did see the patient immediately upon arrival and also spoke with paramedics and she denies any facial droop, slurred speech or any confusion. No numbness of the face. No history of stroke. No recent falls. She denies any pain in the head, neck, chest, abdomen or back. Social history: Nonsmoker She does not use anticoagulation medication. - Related Data Home Medications: Home Medications Medication Instructions Recorded Confirmed Alendronate Sodium [Fosamax] 70 mg PO SA 09/03/17 02/08/18 Calcium Carbonate [Calcium] 600 mg PO DAILY 09/03/17 02/08/18 Donepezil [Aricept] 5 mg PO HS 09/03/17 02/08/18 Ergocalciferol (VITAMIN D2) 800 unit PO DAILY 09/03/17 02/08/18 [Vitamin D] Lisinopril/Hydrochlorothiazide 1 tab PO DAILY 09/03/17 02/08/18 [Zestoretic 10-12.5 mg Tablet] Multivitamin [One Daily 1 tab PO DAILY 09/03/17 02/08/18 Multivitamin] Omeprazole [PriLOSEC] 20 mg PO DAILY 09/03/17 02/08/18 NIFEdipine [Nifedipine ER] 30 mg PO DAILY 02/08/18 02/08/18 Potassium Chloride [K-Tab ER] 20 meq PO BID 02/08/18 02/08/18 Sertraline [Zoloft] 50 mg PO DAILY 02/08/18 02/08/18 Simvastatin 80 mg PO HS 02/08/18 02/08/18 predniSONE [PredniSONE] 7.5 mg PO DAILY 02/09/18 02/09/18 Previous Rx's Medication Instructions Recorded Acetaminophen/Butalbital/Caffe 1 each PO Q6HR PRN #30 tablet 02/10/18 [Fioricet] Amitriptyline [Elavil] 25 mg PO HS #30 tablet 02/10/18 Allergies/Adverse Reactions: Allergies Allergy/AdvReac Type Severity Reaction Status Date / Time No Known Allergies Allergy Verified 02/08/18 15:32 Review of Systems: Constitutional: No fever Vision: No blurred vision ENT: No rhinorrhea Respiratory: No cough Allergic: No allergies : No blood in urine GI: No blood in stool Hematologic: No bruising Dermatologic: No skin rash Musculoskeletal: No pain in the extremities Neuro: + numbness of the extremities Past Medical History - Past Medical History Medical history: Reports: cancer, diabetes, hypertension Surgical history: Reports: appendectomy, hysterectomy, other Psychiatric history: Reports: no psych history - Social History Smoking Status: Former smoker Smokeless Tobacco Status: No Alcohol use: Reports: none Drug use: Reports: none Physical Exam CONSTITUTIONAL: Well-appearing; well-nourished; A&O X3, in no apparent distress HEAD: Normocephalic; atraumatic. EYES: PERRL, EOMI, no scleral icterus NOSE: The nose is normal in appearance without rhinorrhea NECK: Supple without rigidity, no JAIME RESP: Normal chest excursion with respiration; breath sounds clear and equal bilaterally; no wheezes, rhonchi, or rales CARD: Regular rhythm, without murmurs, rub or gallop ABD: Non-distended; non-tender, soft, without rigidity, rebound or guarding SKIN: Normal for age and race; warm and dry; no apparent lesions, no rash NEUROLOGICAL: Her scale is 1. See NIH stroke scale. - General General appearance: alert Course Vital Signs Temperature 98.1 F 10/06/18 11:45 Pulse Rate 80 10/06/18 11:45 Respiratory Rate 17 10/06/18 11:45 Blood Pressure 195/86 10/06/18 11:45 O2 Sat by Pulse Oximetry 95 10/06/18 11:45 Temperature 98.1 F 10/06/18 11:45 Pulse Rate 72 10/06/18 15:31 Respiratory Rate 17 10/06/18 15:31 Blood Pressure 160/95 10/06/18 15:31 O2 Sat by Pulse Oximetry 96 10/06/18 15:31 Oxygen Delivery Oxygen Delivery Nasal Cannula Neuro Symptoms/Deficit - MDM Narrative Medical decision making narrative: I did review the patient's labs without acute abnormality. I just spoke with CT and she has had her CT is completed and these will be read shortly. Patient will be admitted for further evaluation of CVA. Her stroke scale is 1 which is not consistent with a large vessel occlusion. 1307 - Medical Records Medical records reviewed: Yes I reviewed the patient's medical records. - Lab Data Lab results reviewed: Yes I reviewed the patient's lab results. Result diagrams: 10/06/18 11:59 10/06/18 11:59 Lab Results 10/06/18 10/06/18 10/06/18 Range/Units 11:59 11:59 11:59 WBC 7.5 (4.3-11.1) K/mcL RBC 5.00 H (3.82-4.97) M/mcL Hgb 14.6 (11.5-15.4) g/dL Hct 44.7 (35.3-44.9) % MCV 89.4 (83.0-100.0) fL MCH 29.2 (28.0-33.3) pg MCHC 32.7 (31.6-35.5) g/dL RDW 12.5 (11.5-14.5) % Plt Count 245 (140-400) K/mcL MPV 11.4 (9.4-12.4) fL PT 12.1 (9.4-12.1) Seconds INR 1.1 APTT 29.3 (26.0-36.0) Seconds Sodium 136 (136-145) mEq/L Potassium 3.7 (3.5-5.1) mEq/L Chloride 100 (98-107) mEq/L Carbon Dioxide 27 (23-29) mEq/L BUN 12 (8-23) mg/dL Creatinine 0.73 (0.60-1.20) mg/dL Est GFR ( Amer) > 60 (> 60) Est GFR (Non-Af Amer) > 60 (> 60) BUN/Creatinine Ratio 16 (6-26) Glucose 210 H (70-105) mg/dL Calculated Osmolality 288 (280-300) Calcium 9.2 (8.6-10.3) mg/dL Troponin I < 0.03 (< 0.04) ng/mL - Radiology Data Radiology results reviewed: Yes I reviewed the patient's radiology results. NIH Stroke Scale - Level of Consciousness LOC: Alert - LOC Questions LOC Questions: Answers both correctly - LOC Commands LOC Commands: Performs both correctly - Best Gaze Best Gaze: Normal - Visual Visual: No visual loss - Facial Palsy Facial Palsy: Normal - Motor Arms Motor Arm-Left: No drift for 10 seconds Motor Arm-Right: No drift for 10 seconds - Motor Legs Motor Leg-Left: No drift for 5 seconds Motor Leg-Right: No drift for 5 seconds - Limb Ataxia Limb Ataxia: Normal, No Ataxia - Sensory Sensory: Mild to moderate loss, "not as sharp" - Best Language Best Language: No aphasia - Dysarthria Dysarthria: Normal - Extinction and Inattention Extinction and Inattention: Normal (Done at initial eval at 11:45 AM) - NIHSS Total Score NIHSS Total Score: 1 TPA Checklist - LKW: 3-4.5 hrs Add. Warnings/Precautions Patient/family understanding: The patient/family members have been counseled and understood the risk, benefit, and alternatives of treatment.
[2018-10-06] MEDS ORDERED: Ondansetron 4 MG/2 ML VIAL IVP PRN (15:22)
[2018-10-06] MEDS ORDERED: Naloxone 0.4 MG/ML INJ IVP PRN (15:22)
[2018-10-06] MEDS ORDERED: Acetaminophen/Butalbital/CaffeineTABLET PO PRN (15:30)
--- NOTE | 2018-10-06 16:18 | Internal Med History&Physical ---
Date of Encounter: 10/06/18 Time of Encounter: 16:15 Internal Medicine - H&P: HPI Chief complaint: Right-sided weakness Admitted From: Emergency Dept Plans for Post Hospital Care: Home History of present illness: Ms. 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 She denied any headache, visual changes and blurry vision. She her weakness better now however still having numbness on the right arm and lower extremity. She denied any chest pain/shortness of breath. Regarding her chronic right cavernous carotid artery aneurysm, patient stated its been there for 20 years and do not want to do any further workup regarding that Past Med Surg Social Fam HX - Past Medical History Medical history: cancer, diabetes, hypertension Additional medical history: uterine cancer Psychiatric history: no psych history - Past Surgical History Surgical History: appendectomy, hysterectomy, other Additional surgical history: shoulder replacement, spine surgery - Social History Smoking Status: Former smoker Smokeless Tobacco Status: No Alcohol use: none Drug use: none - Family History Mother Living Status: Hx Family Endocrine Disorder: Yes Internal Medicine - H&P: Meds Alendronate Sodium [Fosamax] 70 mg PO SA 09/03/17 [History] Calcium Carbonate [Calcium] 600 mg PO DAILY 09/03/17 [History] Donepezil [Aricept] 5 mg PO HS 09/03/17 [History] Ergocalciferol (VITAMIN D2) [Vitamin D] 800 unit PO DAILY 09/03/17 [History] Lisinopril/Hydrochlorothiazide [Zestoretic 10-12.5 mg Tablet] 1 tab PO DAILY 09/03/17 [History] Multivitamin [One Daily Multivitamin] 1 tab PO DAILY 09/03/17 [History] Omeprazole [PriLOSEC] 20 mg PO DAILY 09/03/17 [History] NIFEdipine [Nifedipine ER] 30 mg PO DAILY 02/08/18 [History] Potassium Chloride [K-Tab ER] 20 meq PO BID 02/08/18 [History] Sertraline [Zoloft] 50 mg PO DAILY 02/08/18 [History] Simvastatin 80 mg PO HS 02/08/18 [History] predniSONE [PredniSONE] 7.5 mg PO DAILY 02/09/18 [History] Acetaminophen/Butalbital/Caffe [Fioricet] 1 each PO Q6HR PRN #30 tablet 02/10/18 [Rx] Amitriptyline [Elavil] 25 mg PO HS #30 tablet 02/10/18 [Rx] Allergy/AdvReac Type Severity Reaction Status Date / Time No Known Allergies Allergy Verified 02/08/18 15:32 All Systems PM: A 10-system review of systems was performed and is negative for pertinent findings except as documented above in the HPI. Review of systems: All the systems are reviewed everything is benign except the systems and symptoms I mentioned in the history of present illness - Constitutional Vitals: Temp Pulse Resp BP Pulse Ox 98.1 F 72 17 160/95 96 10/06/18 11:45 10/06/18 15:31 10/06/18 15:31 10/06/18 15:31 10/06/18 15:31 General appearance: Present: cooperative, A&O X 3, no acute distress, answers questions appropriately Exam: a - Head Head exam: Present: atraumatic, normal inspection - Neck Neck exam general surgery: Present: supple - Respiratory Respiratory exam: Present: decreased breath sounds. Absent: rales, respiratory distress, rhonchi, wheezes - Cardiovascular Cardiovascular exam: Present: RRR, +S1, +S2. Absent: tachycardia - GI/Abdominal GI/Abdominal exam: Present: normal bowel sounds, soft. Absent: rebound, rigid, tenderness - Extremities Exam Extremities exam: Absent: calf tenderness, cyanotic, pedal edema, tenderness - Back Exam Back exam: Absent: CVA tenderness (L), CVA tenderness (R) - Neurological Exam Neurological exam: Present: alert, CN II-XII intact, oriented X3, strengths equal and symetr throughout. Absent: pronater drift, facial droop, speech deficit - Psychiatric Psychiatric exam: Present: normal affect, normal mood Internal Med - H&P Results - Labs CBC & Chem 7: 10/06/18 11:59 10/06/18 11:59 Labs: Short CBC 10/06/18 Range/Units 11:59 WBC 7.5 (4.3-11.1) K/mcL Hgb 14.6 (11.5-15.4) g/dL Hct 44.7 (35.3-44.9) % Plt Count 245 (140-400) K/mcL BMP 10/06/18 11:59 Sodium 136 Potassium 3.7 Chloride 100 Carbon Dioxide 27 BUN 12 Creatinine 0.73 Glucose 210 H Calcium 9.2 Cardiac Enzymes 10/06/18 Range/Units 11:59 Troponin I < 0.03 (< 0.04) ng/mL - Impressions ITS Impressions Head CTA 10/06/18 11:55 IMPRESSION: 1. No acute intracranial abnormality. 2. Stable large right cavernous carotid artery aneurysm measuring 2.1 x 1.0 cm 3. Moderate chronic microvascular disease within the periventricular white matter D/ / Kevin Porter MD / Kevin Porter MD Interpreting Provider: Kevin Porter MD - Assessment and Plan (1) Right sided weakness Current Visit: Yes Status: Acute Assessment and plan: Place the pt into Tele for observation Will do neuro checks Q 4 hour Will get an EKG reviewed CT of the head no acute intra cranial abnormality noticed.. 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 Current Visit: No Status: Acute Assessment and plan: chronic large right cavernous carotid artery aneurysm measuring 2.0 x 1.1 CM Pt do not wanted to proceed with any further work She is aware of the complications with aneurysm she does not want to proceed with surgery (3) Hypertension Current Visit: No Status: Acute Assessment and plan: Fairly controlled resumed home medications Lisinopril, HCTZ and Nifedipine placed her on IV hydralazine as needed Qualifiers: Hypertension type: essential hypertension Qualified Code(s): I10 - Essential (primary) hypertension - Time Spent With Patient Total time spent is greater than 50% in coordination of care (as documented) at patient's floor/unit and/or counseling patient:
--- NOTE | 2018-10-06 16:23 | Neurology - Consult Note ---
<Urban oNlen J - Last Filed: 10/06/18 16:30> Date of Encounter: 10/06/18 Time of Encounter: 16:19 Assessment and Plan (1) Cerebrovascular accident Current Visit: Yes Status: Suspected Neuro c/s for suspected CVA Risk fx age, HTN and DM Presented with numbness of Rt face, arm and leg as well as Rt leg weakness and ambulatory dysfunction Sx onset yesterday evening at 9pm; not TPA candidate No prior h/o CVA or TIA, no A-fib hx, no family h/o CVA Was found to be HTN on admission with SBP in the 190's NIH 5 CTA head reveal cavernous carotid artery aneurysm which is chronic was increased in size when compared to prior imaging I do not feel this is the cause of her sx. She was offered further evaluation of aneurysm but declined Neuro exam findings concerning for an acute left sided infarct. Concerns d/w patient and spouse. PLAN: MRI brain-pending Carotid Duplex scan-pending ASA 81mg now, then daily Statin now then daily Allow for permissive HTN- goal SBP 140-170 PRN labetolol for HTN SBP greater than >170 Tele Neuro assessments per protocol Since she is refusing neurovascular evaluation and/or intervention we recommend annual monitoring of aneurysm as per the guidelines -especially given the increased size when compared to prior studies Qualifiers: CVA mechanism: unspecified Qualified Code(s): I63.9 - Cerebral infarction, unspecified History of Present Illness Chief complaint: right facial, arm and leg numbness HPI: Ms. Alas is a 78 year old female with a PMH of HTN, HLD and chronic right ca vernous carotid artery aneurysm measuring 2.1 x 1.0 cm. she presents to [facility] ED with chief complaint of right facial, arm and leg numbness and weakness which began approximately 9 PM last night. She reports she did not seek immediate evaluation because "I did not want to come in ". She notes that her symptoms were still present this morning when she awoke closely prompting her evaluation in the ED. She denies any prior history of TIA or CVA and denies any history of atrial fibrillation. Further, she denies visual disturbances, headache, dizziness, facial droop, slurred speech. She notes that since approximately 9 pm last night she has had difficulty ambulating due to Rt leg weakness. However, she denies any gross weakness in her right arm. CT angiogram of the head completed the ED and redemonstrated the right cavernous carotid artery aneurysm again, measuring 2.1 x 1.0 cm which appears to have increased in size from previous imaging. Of note, she has been aware of the aneurysm for 20 years and does not wish to pursue further w/u or neurointerventional evaluation. Past Med Surg Social Fam HX - Past Medical History Medical history: cancer, diabetes, hypertension Additional medical history: uterine cancer Psychiatric history: no psych history - Past Surgical History Surgical History: appendectomy, hysterectomy, other Additional surgical history: shoulder replacement, spine surgery - Social History Smoking Status: Former smoker Smokeless Tobacco Status: No Alcohol use: none Drug use: none - Family History Mother Living Status: Hx Family Endocrine Disorder: Yes Medications and Allergies Alendronate Sodium [Fosamax] 70 mg PO SA 09/03/17 [History] Calcium Carbonate [Calcium] 600 mg PO DAILY 09/03/17 [History] Donepezil [Aricept] 5 mg PO HS 09/03/17 [History] Ergocalciferol (VITAMIN D2) [Vitamin D] 800 unit PO DAILY 09/03/17 [History] Lisinopril/Hydrochlorothiazide [Zestoretic 10-12.5 mg Tablet] 1 tab PO DAILY 09/03/17 [History] Multivitamin [One Daily Multivitamin] 1 tab PO DAILY 09/03/17 [History] Omeprazole [PriLOSEC] 20 mg PO DAILY 09/03/17 [History] NIFEdipine [Nifedipine ER] 30 mg PO DAILY 02/08/18 [History] Potassium Chloride [K-Tab ER] 20 meq PO BID 02/08/18 [History] Sertraline [Zoloft] 50 mg PO DAILY 02/08/18 [History] Simvastatin 80 mg PO HS 02/08/18 [History] predniSONE [PredniSONE] 7.5 mg PO DAILY 02/09/18 [History] Acetaminophen/Butalbital/Caffe [Fioricet] 1 each PO Q6HR PRN #30 tablet 02/10/18 [Rx] Amitriptyline [Elavil] 25 mg PO HS #30 tablet 02/10/18 [Rx] Allergy/AdvReac Type Severity Reaction Status Date / Time No Known Allergies Allergy Verified 02/08/18 15:32 All Systems: The remainder of the systems were reviewed and are negative Review of Systems: REVIEW OF SYSTEMS NEUROLOGIC: Negative for any blurry vision, blind spots, double vision, facial asymmetry, dysphagia, dysarthria, hemiparesis, hemisensory deficits, vertigo, ataxia, seizures, paralysis positive-numbness in the right side of face, right arm and right leg, weakness of right leg and ambulatory dysfunction CARDIAC: Negative for any chest pain, dyspnea, palpitations MUSCULOSKELETAL: positive-loss of strength right leg Physical Examination - Vital Signs Vital Signs: Initial Vital Signs Temp Pulse Resp BP Pulse Ox 98.1 F 80 17 195/86 95 10/06/18 11:45 10/06/18 11:45 10/06/18 11:45 10/06/18 11:45 10/06/18 11:45 - Exam Exam: Examination: General Examination: *CONSTITUTIONAL: Alert and oriented x3, no acute distress, *GENERAL APPEARANCE OF PATIENT elderly female who overall appears healthy and well groomed *EYES: pupils equal, round, reactive to light and accommodation, conjun ctiva clear without masses or ulcerations, fundi normal. *CARDIOVASCULAR no peripheral edema, distal temperature normal, dorsalis pedis pulses normal. see vital signs Musculoskeletal: *GAIT AND STATION weakness to right leg noted with ambulation, unable to bear weight on right leg for prolonged period of time *ASSESSMENT OF MUSCLE STRENGTH IN THE UPPER AND LOWER EXTREMITIES left deltoid, bicep, tricep, software programmer strength, hip flexors ,anterior tibialis, dorsoflexion of the foot 5/5. right deltoid, bicep, tricep, software programmer strength, hip flexors ,anterior tibialis, dorsoflexion of the foot 4/5, mild drift of right leg *MUSCLE TONE IN THE UPPER AND LOWER EXTREMITIES normal. No abnormal movements, fasciculations or atrophy identified. Neurological: *ORIENTATION to person, situation, time and place *RECURRENT AND REMOTE MEMORY intact *ATTENTION AND CONCENTRATION are normal *LANGUAGE FUNCTION no significant aphasia but has some mild speech slurring *FUND OF KNOWLEDGE aware of current events, past history, vocabulary *MENTAL attention span and concentration normal. *CN II optic fundi were normal, no papilledema noted. *CN III,IV, PERRLA extraocular eye movements were full, no nystagmus and no ptosis noted. *CN V mildly decreased sensation to right face however jaw opens symmetrically. *CN VII mild facial droop right mouth, mild flattening of the right nasolabial folds *CN VIII chronic hearing loss right ear, normal exam on left *CN IX,,X palate elevated symmetrically *CN XI normal strength in the sternocleidomastoid muscles, symmetrical shoulder shrugging. *CN XII tongue protruded in the midline, with normal strength and movement. *SENSORY EXAMINATION light touch intact *REFLEXES: deep tendon reflexes were normal and symmetrical , grade 2/4 d iffusely, no pathological reflexes were noted. *CEREBELLAR TESTING mild dysmetria noted on finger to nose exam right arm *PAIN LEVEL 0 Results - Laboratory Findings CBC and BMP: 10/06/18 11:59 10/06/18 11:59 Abnormal lab findings: Abnormal lab results RBC 5.00 M/mcL (3.82-4.97) H 10/06/18 11:59 Glucose 210 mg/dL (70-105) H 10/06/18 11:59 - Diagnostic Findings Additional findings: 10/06/18 CT/CT angio head/ IMPRESSION: 1. No acute intracranial abnormality. 2. Stable large right cavernous carotid artery aneurysm measuring 2.1 x 1.0 cm 3. Moderate chronic microvascular disease within the periventricular white matter 02/09/18 imaging MR/MR head/brain wo con IMPRESSION: 1. No acute infarct, intracranial hemorrhage, significant mass effect. 2. Chronic small vessel ischemic white matter disease and diffuse cerebral volume loss. 3. Redemonstration of large right cavernous aneurysm. No MRI evidence of acute subarachnoid hemorrhage. Consult Discharge Plan - Plan Referrals: Srinivas Sanchez MD [Primary Care Provider] - <Luciano Jackson - Last Filed: 10/06/18 17:31> Date of Encounter: 10/06/18 Assessment and Plan (1) Cerebrovascular accident Current Visit: Yes Status: Suspected I have personally performed a irom-ke-iyce assessment of the patient and have reviewed the PA/FORM COVERER note. My impressions are as follows: I agree with the assessment and plan as stated above by the PREDICTIVE MAINTENANCE TECHNICIAN. Patient is informed the fact that the aneurysm considering its size is at risk to rupture. She wishes no intervention whatsoever. Otherwise carry out the plan as recommended above. I will review the MRI scan of the brain in the morning. Qualifiers: CVA mechanism: unspecified Qualified Code(s): I63.9 - Cerebral infarction, unspecified History of Present Illness HPI: Chart was reviewed, patient was seen and examined along with the PREDICTIVE MAINTENANCE TECHNICIAN. I agree with with his documentation as stated above. All Systems: The remainder of the systems were reviewed and are negative Review of Systems: Balance of the systems review is negative. Physical Examination - Vital Signs Vital Signs: Initial Vital Signs Temp Pulse Resp BP Pulse Ox 98.1 F 80 17 195/86 95 10/06/18 11:45 10/06/18 11:45 10/06/18 11:45 10/06/18 11:45 10/06/18 11:45 - Exam Exam: I have personally performed a [id number] assessment of the patient and have reviewed the PA/FORM COVERER note. My impressions are as follows: I agree with the neurologic examination is documented above by the PREDICTIVE MAINTENANCE TECHNICIAN. Results - Laboratory Findings CBC and BMP: 10/06/18 11:59 10/06/18 11:59 Abnormal lab findings: Abnormal lab results RBC 5.00 M/mcL (3.82-4.97) H 10/06/18 11:59 Glucose 210 mg/dL (70-105) H 10/06/18 11:59
[2018-10-06] MEDS ORDERED: *HR* Labetalol 20 MG/4 ML SYRINGE IVP PRN (16:44)
[2018-10-06] MEDS: Aspirin 81 MG TAB.CHEW PO SCH (17:45)
[2018-10-07 01:50] LABS: Chol/HDL Ratio 6.7 (0-4.9)
[2018-10-07] MEDS: Cholecalciferol (D-3) 1,000 UNIT TABLET PO SCH (08:42)
[2018-10-07] MEDS: NIFEdipine XL (24 HR) 30 MG TAB.ER.24 PO SCH (08:42)
[2018-10-07] MEDS: predniSONE 5 MG TABLET PO SCH (08:43)
[2018-10-07] MEDS: Aspirin 81 MG TAB.CHEW PO SCH (08:43)
[2018-10-07] MEDS: Multivit/Ca/Min/Fe/FA 1 TAB TABLET PO SCH (08:43)
--- NOTE | 2018-10-07 11:06 | Internal Med Progress Note ---
Hospitalist Progress Note - Encounter Date of Encounter: 10/07/18 Time of Encounter: 09:30 - Subjective Interval History: Ms. 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 She denied any headache, visual changes and blurry vision. She her weakness better now however still having numbness on the right arm and lower extremity. She denied any chest pain/shortness of breath. She was admitted in the hospital and placed on cardiac monitor technician. Patient stated she still has numbness in her right upper and lower extremities, still have mild weakness on right-side. - Exam Vitals: Temp Pulse Resp BP Pulse Ox 98.0 F 66 17 128/67 92 10/07/18 06:44 10/07/18 06:44 10/07/18 06:44 10/07/18 06:44 10/07/18 06:44 Exam: Gen: Alert, awake, Oriented to time,place and person Chest: Diminished breath sounds B/L, No wheezing, No crackles, No rales Heart: S1S2+ RRR No murmurs Abd: Soft, NT, BS +, No organomegaly Ext: No edema, pulses are palpable, No calf tenderness Neuro : Rt side numbness, motor strength 4/5 in Rt UE and LE, VERSE WRITER 2-12 intact, Mild sensory deficit in Rt UE and LE Skin: No rash. - Assessment and Plan (1) Right sided weakness Current Visit: Yes Status: Acute Assessment and Plan: Reviewed Brain MRI showed - Acute infarct within posterior limb of the left internal capsule Cont neuro checks Q 4 hour Was not a candidate for tPA due to out of window time when she came to the ER. Reviewed EKG cont aspirin 81 mg PO daily Reviewed lipid profile significantly elevated LDL switched to Lipitor 80mg HS continue home med Zocor 80 mg Reviewed carotid Doppler bilaterally - showed non-stenotic plaque appreciate Neurology recommendations PT / OT eval Patient does need to stay in the hospital more than 2 midnights due to her complex medical problems. So we will change her to full admission today. 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 Current Visit: No Status: Acute Assessment and Plan: chronic large right cavernous carotid artery aneurysm measuring 2.0 x 1.1 CM Pt do not wanted to proceed with any further work She is aware of the complications with aneurysm she does not want to proceed with surgery (3) Hypertension Current Visit: No Status: Acute Assessment and Plan: Today well controlled with current regimen Cont home medications Lisinopril, HCTZ and Nifedipine On IV hydralazine as needed (4) HLD (hyperlipidemia) Current Visit: Yes Status: Acute Assessment and Plan: Reviewed FLP LDL @ 180's switched to Lipitor 80mg HS - Time Spent with Patient Total time spent is greater than 50% in coordination of care (as documented) at patient's floor/unit and/or counseling patient: Internal Medicine: Result - Labs CBC & Chem 7: 10/06/18 11:59 10/06/18 11:59 Labs: Short CBC 10/06/18 Range/Units 11:59 WBC 7.5 (4.3-11.1) K/mcL Hgb 14.6 (11.5-15.4) g/dL Hct 44.7 (35.3-44.9) % Plt Count 245 (140-400) K/mcL BMP 10/06/18 11:59 Sodium 136 Potassium 3.7 Chloride 100 Carbon Dioxide 27 BUN 12 Creatinine 0.73 Glucose 210 H Calcium 9.2 Cardiac Enzymes 10/06/18 Range/Units 11:59 Troponin I < 0.03 (< 0.04) ng/mL - ABG Interpretation ABG results: PT/INR, D-dimer PT 12.1 Seconds (9.4-12.1) 10/06/18 11:59 - Impressions Impressions Head CTA 10/06/18 11:55 IMPRESSION: 1. No acute intracranial abnormality. 2. Stable large right cavernous carotid artery aneurysm measuring 2.1 x 1.0 cm 3. Moderate chronic microvascular disease within the periventricular white matter D/ / Kevin Porter MD / Kevin Porter MD Interpreting Provider: Kevin Porter MD Brain MRI 10/06/18 15:24 IMPRESSION: 1. 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 No associated intracranial hemorrhage. 2. 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 3. Redemonstration of right cavernous ICA aneurysm, likely similar to previous examination. Please refer to CTA head examination on 10/06/2018. The findings were sent to the Radiology Results Communication [facility] to be communicated to a licensed caregiver. D/ / 10/06/2018 16:50:36 Paulo Arceo MD / alex Interpreting Provider: Paulo Arceo MD Consult Discharge Plan - Plan Referrals: Srinivas Sanchez MD [Primary Care Provider] - (3) Hypertension Qualifiers: Hypertension type: essential hypertension Qualified Code(s): I10 - Essential (primary) hypertension (4) HLD (hyperlipidemia) Qualifiers: Hyperlipidemia type: unspecified Qualified Code(s): E78.5 - Hyperlipidemia, unspecified
--- NOTE | 2018-10-07 11:52 | Neurology Progress Note ---
<Urban Nolen - Last Filed: 10/07/18 11:57> Date of Encounter: 10/07/18 Time of Encounter: 11:49 Assessment and Plan (1) Cerebrovascular accident Current Visit: Yes Status: Suspected The patient was seen in follow-up for an acute CVA. She presented yesterday with numbness of the right face and arm and leg as well as right leg weakness and ambulatory dysfunction. Carotid duplex scan reveals bilateral carotid systems with nonstenotic plaque. MRI of the brain revealed an acute infarct within the posterior limb of the left internal capsule and moderate chronic small vessel ischemic white matter disease with diffuse cerebral volume loss. Additionally, there is redemonstrated of the right cavernous ICA aneurysm which shows a slight increase in size when compared to prior MRI. Clinically, she remained stable and there are no new neurological deficits on exam today. We have discussed discussed aggressive risk factor modification including hypertension management, lifestyle changes and glucose control. She has been started on 81 mg of aspirin daily and a statin medication, they should continue at discharge. We would like for her to follow-up with neurology in 7-10 days of discharge. On neuro exam today she continues to have some weakness to the right leg and gait instability. Would recommend PT/OT evaluation and she will likely need some form of rehabilitation. In regards to the aneurysm should be noted this is chronic. She has been offered further intervention and evaluation however continues to decline. Neurology will follow tomorrow. Qualifiers: CVA mechanism: unspecified Qualified Code(s): I63.9 - Cerebral infarction, unspecified Subjective Principal diagnosis: Acute CVA Interval history: Patient seen in follow-up for acute CVA. As indigestion today with numbness of right face, arm and leg as well as right leg weakness and ambulatory dysfunction. No new neurological deficits reported overnight., Clinically she remains stable. This morning I further discussed the need for aggressive risk factor modification and discussed starting her on aspirin and a statin medicat ion. She denies any further questions at this time. In regards to her chronic aneurysm she continues to express that she does not wish to have further evaluation and/or intervention. Objective - Constitutional Vitals: Temp Pulse Resp BP Pulse Ox 98.0 F 66 17 128/67 92 10/07/18 06:44 10/07/18 06:44 10/07/18 06:44 10/07/18 06:44 10/07/18 06:44 Exam: Examination: General Examination: *CONSTITUTIONAL: Alert and oriented x3, no acute distress, *GENERAL APPEARANCE OF PATIENT elderly female who overall appears healthy and well groomed *EYES: pupils equal, round, reactive to light and accommodation, conjunctiva clear without masses or ulcerations, fundi normal. *CARDIOVASCULAR no peripheral edema, distal temperature normal, dorsalis pedis pulses normal. see vital signs Musculoskeletal: *GAIT AND STATION weakness to right leg persists proving it difficult to ambulate. She continues to have gait instability due to right leg weakness *ASSESSMENT OF MUSCLE STRENGTH IN THE UPPER AND LOWER EXTREMITIES left deltoid, bicep, tricep, sausage smoker strength, hip flexors ,anterior tibialis, dorsoflexion of the foot 5/5. right deltoid, bicep, tricep, sausage smoker strength, hip flexors ,anterior tibialis, dorsoflexion of the foot 4/5, mild drift of right leg *MUSCLE TONE IN THE UPPER AND LOWER EXTREMITIES normal. No abnormal move ments, fasciculations or atrophy identified. Neurological: *ORIENTATION to person, situation, time and place *RECURRENT AND REMOTE MEMORY intact *ATTENTION AND CONCENTRATION are normal *LANGUAGE FUNCTION no significant aphasia but has some mild speech slurring *FUND OF KNOWLEDGE aware of current events, past history, vocabulary *MENTAL attention span and concentration normal. *CN II optic fundi were normal, no papilledema noted. *CN III,IV, PERRLA extraocular eye movements were full, no nystagmus and no ptosis noted. *CN V mildly decreased sensation to right face however jaw opens symmetrically. *CN VII mild facial droop right mouth, mild flattening of the right nasolabial folds *CN VIII chronic hearing loss right ear, normal exam on left *CN IX,,X palate elevated symmetrically *CN XI normal strength in the sternocleidomastoid muscles, symmetrical shoulder shrugging. *CN XII tongue protruded in the midline, with normal strength and movement. *SENSORY EXAMINATION light touch intact *REFLEXES: deep tendon reflexes were normal and symmetrical , grade 2/4 diffusely, no pathological reflexes were noted. *CEREBELLAR TESTING mild dysmetria noted on finger to nose exam right arm *PAIN LEVEL 0 Results - Laboratory Findings CBC and BMP: 10/06/18 11:59 10/06/18 11:59 Abnormal lab findings: Abnormal lab results RBC 5.00 M/mcL (3.82-4.97) H 10/06/18 11:59 Glucose 210 mg/dL (70-105) H 10/06/18 11:59 POC Glucose 209 mg/dL (70-99) H 10/06/18 20:00 Triglycerides 180 mg/dL (< 150) H 10/07/18 00:59 Cholesterol 275 mg/dL (< 200) H 10/07/18 00:59 LDL Cholesterol, Calc 198 mg/dL (0-99) H 10/07/18 00:59 VLDL Cholesterol, Calc 36 mg/dL (< 31) H 10/07/18 00:59 6.7 (0-4.9) H 10/07/18 00:59 Consult Discharge Plan - Plan Referrals: Srinivas Sanchez MD [Primary Care Provider] - <Luciano Jackson - Last Filed: 10/07/18 18:42> Date of Encounter: 10/07/18 Assessment and Plan (1) Cerebrovascular accident Current Visit: Yes Status: Suspected I have personally performed a [id number] assessment of the patient and have reviewed the PA/UM NURSE note. My impressions are as follows: I agree with the assessment and plan as documented above by the FUNERAL LOCATION MANAGER. Qualifiers: CVA mechanism: unspecified Qualified Code(s): I63.9 - Cerebral infarction, unspecified Subjective Interval history: Chart was reviewed, patient was seen and examined independently. Case was discussed with the FUNERAL LOCATION MANAGER. I agree with his assessment as stated above. Patient feels that her right-sided weakness has improved to some extent. MRI scan of the brain revealed an acute infarct in the left internal capsule. This was likely due to vasospasm associated with extreme hypertension. Blood pressure was 195/86 upon admission. Objective - Constitutional Vitals: Temp Pulse Resp BP Pulse Ox 98.8 F 78 17 96/59 92 10/07/18 12:31 10/07/18 12:31 10/07/18 12:31 10/07/18 12:36 10/07/18 12:31 Exam: I have personally performed a [id number] assessment of the patient and have reviewed the PA/UM NURSE note. My impressions are as follows: I agree with the neurologic examination is documented above by the CMP. Results - Laboratory Findings CBC and BMP: 10/06/18 11:59 10/06/18 11:59 Abnormal lab findings: Abnormal lab results RBC 5.00 M/mcL (3.82-4.97) H 10/06/18 11:59 Glucose 210 mg/dL (70-105) H 10/06/18 11:59 POC Glucose 237 mg/dL (70-99) H 10/07/18 17:17 Triglycerides 180 mg/dL (< 150) H 10/07/18 00:59 Cholesterol 275 mg/dL (< 200) H 10/07/18 00:59 LDL Cholesterol, Calc 198 mg/dL (0-99) H 10/07/18 00:59 VLDL Cholesterol, Calc 36 mg/dL (< 31) H 10/07/18 00:59 6.7 (0-4.9) H 10/07/18 00:59
[2018-10-07] MEDS: *HR* Heparin 5,000 UNIT/ML VIAL SQ SCH ×2 (12:42→17:28)
[2018-10-07] MEDS ORDERED: Perflutren Lipid Microsphere 1.3 ML in 0.9 % Sodium Chloride 8.7 ML IVP ONE (15:14)
[2018-10-07] MEDS ORDERED: D5% in Water 1,000 ML IVC PRN (19:47)
[2018-10-07] MEDS ORDERED: Dextrose Gel 15 GM/37.5 ML TUBE PO PRN ×2 (19:47)
[2018-10-07] MEDS ORDERED: *HR* Dextrose 50 % in Water (Syg) 50 ML SYRINGE IVP PRN (19:47)
[2018-10-07] MEDS: Insulin LISPRO 300 UNITS/3 ML VIAL SQ SCH (20:16)
[2018-10-08 06:53] LABS: Estimated Average Glucose 206 mg/dl; Hemoglobin A1C 8.8 %
[2018-10-08] MEDS: Cholecalciferol (D-3) 1,000 UNIT TABLET PO SCH (08:20)
[2018-10-08] MEDS: Aspirin 81 MG TAB.CHEW PO SCH (08:20)
[2018-10-08] MEDS: Multivit/Ca/Min/Fe/FA 1 TAB TABLET PO SCH (08:22)
[2018-10-08] MEDS: Insulin LISPRO 300 UNITS/3 ML VIAL SQ SCH ×4 (08:25→21:20)
[2018-10-08] MEDS: NIFEdipine XL (24 HR) 30 MG TAB.ER.24 PO SCH (08:33)
[2018-10-08] MEDS: predniSONE 5 MG TABLET PO SCH (08:35)
--- NOTE | 2018-10-08 09:45 | Neurology Progress Note ---
<Urban Nolen - Last Filed: 10/08/18 09:42> Date of Encounter: 10/08/18 Time of Encounter: 09:42 Assessment and Plan (1) Cerebrovascular accident Current Visit: Yes Status: Suspected The patient was seen in follow-up today for acute CVA. Clinically, she remained stable without new neurological deficits. Briefly, she presented with right arm and leg weakness and ambulatory dysfunction as well as paresthesias to the face arm and leg. MRI of the brain identified acute infarcts in the posterior limb of the left internal capsule and moderate chronic small vessel ischemic white matter disease with diffuse cerebral volume loss. TTE was completed throughout the stay and was negative for PFO, valvular dysfunction or embolic source. Bilateral carotid duplex completed and negative for flow limiting stenosis. Prior to CVA the patient was platelet therapy naive. As such we will start her on aspirin 81 mg daily and a statin medication. In regards to the continued and ventilatory dysfunction due to right leg weakness the patient is to discharge to a swing bed for some physical therapy. We recommend follow-up with neurology in 7-10 days of discharge. Neurology will sign off at this time. Please reconsult should any further need arise. Qualifiers: CVA mechanism: unspecified Qualified Code(s): I63.9 - Cerebral infarction, unspecified Subjective Principal diagnosis: Acute CVA Interval history: Patient seen in follow-up for acute CVA. Right leg weakness and ambulatory dysfunction persists. She denies any new neurological deficits overnight. Clinically, she remains stable. Again, I discussed the need for aggressive risk factor modification and medication compliance with aspirin and statin therapy. Objective - Constitutional Vitals: Temp Pulse Resp BP Pulse Ox 98.2 F 73 16 101/62 97 10/08/18 07:22 10/08/18 07:22 10/08/18 07:22 10/08/18 07:22 10/08/18 07:22 Exam: Examination: General Examination: *CONSTITUTIONAL: Alert and oriented x3, no acute distress, calm and cooperative *GENERAL APPEARANCE OF PATIENT elderly female who overall appears healthy and well groomed *EYES: pupils equal, round, reactive to light and accommodation, con junctiva clear *CARDIOVASCULAR no peripheral edema, distal temperature normal, dorsalis pedis pulses normal. see vital signs Musculoskeletal: *GAIT AND STATION right leg weakness is improving but nevertheless remains. Ambulatory dysfunction due to right leg weakness persists. *ASSESSMENT OF MUSCLE STRENGTH IN THE UPPER AND LOWER EXTREMITIES left deltoid, bicep, tricep, planning consultant strength, hip flexors ,anterior tibialis, dorsoflexion of the foot 5/5. right deltoid, bicep, tricep, planning consultant strength, hip flexors ,anterior tibialis, dorsoflexion of the foot 4/5, mild drift of right leg *MUSCLE TONE IN THE UPPER AND LOWER EXTREMITIES normal. No abnormal movements, fasciculations or atrophy identified. Neurological: *ORIENTATION to person, situation, time and place *RECURRENT AND REMOTE MEMORY intact *ATTENTION AND CONCENTRATION are normal *LANGUAGE FUNCTION no significant aphasia but has some mild speech slurring *FUND OF KNOWLEDGE aware of current events, past history, vocabulary *MENTAL attention span and concentration normal. *CN II optic fundi were normal, no papilledema noted. *CN III,IV, PERRLA extraocular eye movements were full, no nystagmus and no ptosis noted. *CN V mildly decreased sensation to right face however jaw opens symmetrically. *CN VII mild facial droop right mouth, mild flattening of the right nasolabial folds *CN VIII chronic hearing loss right ear, normal exam on left *CN IX,,X palate elevated symmetrically *CN XI normal strength in the sternocleidomastoid muscles, symmetrical shoulder shrugging. *CN XII tongue protruded in the midline, with normal strength and movement. *SENSORY EXAMINATION light touch intact *REFLEXES: deep tendon reflexes were normal and symmetrical , grade 2/4 diffusely, no pathological reflexes were noted. *CEREBELLAR TESTING mild dysmetria noted on finger to nose exam right arm *PAIN LEVEL 0 Results - Laboratory Findings CBC and BMP: 10/06/18 11:59 10/06/18 11:59 Abnormal lab findings: Abnormal lab results RBC 5.00 M/mcL (3.82-4.97) H 10/06/18 11:59 Glucose 210 mg/dL (70-105) H 10/06/18 11:59 POC Glucose 291 mg/dL (70-99) H 10/07/18 19:32 8.8 % (-5.6) H 10/08/18 01:08 Triglycerides 180 mg/dL (< 150) H 10/07/18 00:59 Cholesterol 275 mg/dL (< 200) H 10/07/18 00:59 LDL Cholesterol, Calc 198 mg/dL (0-99) H 10/07/18 00:59 VLDL Cholesterol, Calc 36 mg/dL (< 31) H 10/07/18 00:59 6.7 (0-4.9) H 10/07/18 00:59 Consult Discharge Plan - Plan Referrals: Srinivas Sanchez MD [Primary Care Provider] - (Unable to make appointment. Please call and schedule an appointment within 7 days of your discharge.) Luciano Jackson, [Partnered Physician] - Prescriptions: Lisinopril-HCTZ 10-12.5 [Prinzide 10-12.5] 1 each PO DAILY #30 tablet <Luciano Jackson - Last Filed: 10/08/18 15:09> Date of Encounter: 10/08/18 Assessment and Plan (1) Cerebrovascular accident Current Visit: Yes Status: Suspected I have personally performed a [id number] assessment of the patient and have reviewed the PA/ABRASIVE GRADER HELPER note. My impressions are as follows: I agree with the assessment and plan as stated above. Patient should maintain aspirin 81 mg daily statins and antihypertensives. She will likely need some ongoing therapy for strengthening and balance maneuvers after discharge. Qualifiers: CVA mechanism: unspecified Qualified Code(s): I63.9 - Cerebral infarction, unspecified Subjective Interval history: Chart was reviewed, patient was seen and examined independently. Patient had an uneventful night. Still feels that her right leg is recovering however not at baseline. She was certainly need therapy after discharge. I agree with the subjective commentary as above. Objective - Constitutional Vitals: Temp Pulse Resp BP Pulse Ox 98.4 F 75 19 91/55 94 10/08/18 11:15 10/08/18 11:15 10/08/18 11:15 10/08/18 11:15 10/08/18 11:15 Exam: I have personally performed a [id number]-[id number] assessment of the patient and have reviewed the PA/ABRASIVE GRADER HELPER note. My impressions are as follows: I agree with the neurology examination as documented above Results - Laboratory Findings CBC and BMP: 10/06/18 11:59 10/06/18 11:59 Abnormal lab findings: Abnormal lab results RBC 5.00 M/mcL (3.82-4.97) H 10/06/18 11:59 Glucose 210 mg/dL (70-105) H 10/06/18 11:59 POC Glucose 149 mg/dL (70-99) H 10/08/18 07:24 8.8 % (-5.6) H 10/08/18 01:08 Triglycerides 180 mg/dL (< 150) H 10/07/18 00:59 Cholesterol 275 mg/dL (< 200) H 10/07/18 00:59 LDL Cholesterol, Calc 198 mg/dL (0-99) H 10/07/18 00:59 VLDL Cholesterol, Calc 36 mg/dL (< 31) H 10/07/18 00:59 6.7 (0-4.9) H 10/07/18 00:59
--- NOTE | 2018-10-08 12:53 | Discharge Summary ---
- NOTES TO OUTPATIENT PROVIDER Notes to Outpatient Provider: f/u with PCP in one week. f/u with Neurology in 1-2 weeks. Please start taking ASA 81mg and Lipitor 80mg HS. For BP cont taking Lisinopril / HCTZ 1012.5 Daily Orders not resulted at time of discharge: Pending orders 10/06/18 16:20 EKG [ECG 12 lead ECG] [ECG] Routine 10/08/18 10:26 EKG [ECG 12 lead ECG] [ECG] Routine Date of Encounter: 10/08/18 Time of Encounter: 12:51 - Discharge Diagnosis (1) Cerebrovascular accident Priority: Primary Status: Suspected Qualifiers: CVA mechanism: unspecified Qualified Code(s): I63.9 - Cerebral infarction, unspecified (2) Right sided weakness Priority: Primary Status: Acute (3) Aneurysm of cavernous portion of right internal carotid artery Priority: Secondary Status: Acute (4) Hypertension Priority: Secondary Status: Acute Qualifiers: Hypertension type: essential hypertension Qualified Code(s): I10 - Essential (primary) hypertension (5) HLD (hyperlipidemia) Priority: Secondary Status: Acute Qualifiers: Hyperlipidemia type: unspecified Qualified Code(s): E78.5 - Hyperlipidemia, unspecified Hospital course: Ms. 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 She denied any headache, visual changes and blurry vision. She her weakness better now however still having numbness on the right arm and lower extremity. She denied any chest pain/shortness of breath. She was admitted in the hospital and placed on pvc monitor. Her EKG showed NSR, No arrhythmias noticed. Her Brain MRI showed - Acute infarct within posterior limb of the left internal capsule. Her LDL @ 198, so switched to Lipitor. She is ASA naive pt to started her on ASA 81mg now. Pt was evaluated by Neurologist. Pt was evaluated by PT / OT who recommend swing bed placement for PT / OT, so will d/c her to swing bed in stable condition today. - Time Spent with Patient Total time spent providing and/or coordinating discharge services: - Discharge Medications Prescriptions: New Aspirin 81 mg PO DAILY tab.chew Atorvastatin [Lipitor] 80 mg PO HS tablet Continued Omeprazole [PriLOSEC] 20 mg PO DAILY Alendronate Sodium [Fosamax] 70 mg PO QWEEK Donepezil [Aricept] 10 mg PO QPM metFORMIN [Glucophage] 500 mg PO BIDWM Changed Potassium Chloride [K-Tab ER] 10 meq PO BID #0 Home Medications: Alendronate Sodium [Fosamax] 70 mg PO QWEEK 09/03/17 [History] Omeprazole [PriLOSEC] 20 mg PO DAILY 09/03/17 [History] Donepezil [Aricept] 10 mg PO QPM 10/07/18 [History] metFORMIN [Glucophage] 500 mg PO BIDWM 10/07/18 [History] Aspirin 81 mg PO DAILY tab.chew 10/08/18 [Rx] Atorvastatin [Lipitor] 80 mg PO HS tablet 10/08/18 [Rx] Potassium Chloride [K-Tab ER] 10 meq PO BID #0 10/08/18 [Rx] Allergies/Adverse Reactions: Allergy/AdvReac Type Severity Reaction Status Date / Time No Known Allergies Allergy Verified 02/08/18 15:32 Date of admission: 10/07/18 12:18 Primary care physician: Srinivas Sanchez MD Consults: 10/06/18 15:49 Consult to Neurology [CONS] Routine Consulting Provider: Neurology [facility] Reason for Consult: Rt side weakness Time Notified: 15:49 Call Completed: Yes 10/07/18 07:54 Consult to Occupational Therapy [CONS] Routine Comment: Evaluate, develop and implement POC Reason for Consult: STROKE Does patient have active BEDREST order?: No Is patient medically & hemodynamically stable?: Yes Consult to Physical Therapy [CONS] Routine Comment: Evaluate, develop and implement POC Reason for Consult: STROKE Does patient have active BEDREST order?: No Is patient medically & hemodynamically stable?: Yes 10/08/18 07:52 Consult to Engine Head Repairer [CONS] Routine Reason for SW Consult: placement - Constitutional Vitals: Temp Pulse Resp BP Pulse Ox 98.4 F 75 19 91/55 94 10/08/18 11:15 10/08/18 11:15 10/08/18 11:15 10/08/18 11:15 10/08/18 11:15 General appearance: Present: cooperative, A&O X 3, no acute distress, answers questions appropriately Exam: Gen: Alert, awake, Oriented to time,place and person Chest: Diminished breath sounds B/L, No wheezing, No crackles, No rales Heart: S1S2+ RRR No murmurs Abd: Soft, NT, BS +, No organomegaly Ext: No edema, pulses are palpable, No calf tenderness Neuro : Rt side numbness, motor strength 4/5 in Rt UE and LE, LINEMAN APPRENTICE 2-12 intact, Mild sensory deficit in Rt UE and LE - Patient Status Disposition: Transfer SNF Condition: Good Overall status at discharge: patient is back to baseline - Discharge Instructions Follow Up With: Srinivas Sanchez MD [Primary Care Provider] - (Unable to make appointment. Please call and schedule an appointment within 7 days of your discharge.) Luciano Jackson, [Partnered Physician] - - Diet and Activity Activity: as per physical therapy, increase activity as tolerated Diet: low salt diet
--- NOTE | 2018-10-08 13:10 | Physician Discharge Referral ---
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 Status: Acute (4) Hypertension Status: Acute (5) HLD (hyperlipidemia) Status: Acute - Transfer Medications Prescriptions: Lisinopril-HCTZ 10-12.5 [Prinzide 10-12.5] 1 each PO DAILY #30 tablet Home Medications: Alendronate Sodium [Fosamax] 70 mg PO QWEEK 09/03/17 [History] Omeprazole [PriLOSEC] 20 mg PO DAILY 09/03/17 [History] Donepezil [Aricept] 10 mg PO QPM 10/07/18 [History] metFORMIN [Glucophage] 500 mg PO BIDWM 10/07/18 [History] Aspirin 81 mg PO DAILY tab.chew 10/08/18 [Rx] Atorvastatin [Lipitor] 80 mg PO HS tablet 10/08/18 [Rx] Lisinopril-HCTZ 10-12.5 [Prinzide 10-12.5] 1 each PO DAILY #30 tablet 10/08/18 [Rx] Potassium Chloride [K-Tab ER] 10 meq PO BID #0 10/08/18 [Rx] Allergies/Adverse Reactions: Allergy/AdvReac Type Severity Reaction Status Date / Time No Known Allergies Allergy Verified 02/08/18 15:32 - Respiratory Orders Smoking Cessation: Smoking cessation has been advised. For more information, call the [place] Tobacco Quit Line at 3-398-JBCB-NOW. CERTIFICATION: I certify that the transfer of the above named patient to an Extended Care Facility is necessary for the continuing treatment of the diagnosis listed. The above information is true and accurate reflection of patient's current condition. Confidential - Redisclosure prohibited without a patient's written consent.
[2018-10-08] MEDS ORDERED: 0.9 % Sodium Chloride 500 ML IVC ONE (14:46)
--- NOTE | 2018-10-08 16:35 | Internal Med Progress Note ---
Hospitalist Progress Note - Encounter Date of Encounter: 10/08/18 Time of Encounter: 16:34 - Subjective Interval History: Ms. 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 She denied any headache, visual changes and blurry vision. She her weakness better now however still having numbness on the right arm and lower extremity. She denied any chest pain/shortness of breath. She was admitted in the hospital and placed on pvc monitor. Her EKG showed NSR, No arrhythmias noticed. Her Brain MRI showed - Acute infarct within posterior limb of the left internal capsule. Her LDL @ 198, so switched to Lipitor. She is ASA naive pt to started her on ASA 81mg now. Pt was evaluated by Neurologist. Pt was evaluated by PT / OT who recommend swing bed placement for PT / OT. We were about to d/c her [place] swing bed today, however pt BP was 95/56 and she felt dizzy while getting PT at bed side here, so rehab provider wanted to keep the pt here until her BP stabilizes. She denied any CP. Still has Rt side weakness / numbness - Exam Vitals: Temp Pulse Resp BP Pulse Ox 98.4 F 70 19 105/65 94 10/08/18 11:15 10/08/18 16:08 10/08/18 11:15 10/08/18 16:08 10/08/18 11:15 Exam: Gen: Alert, awake, Oriented to time,place and person Chest: Diminished breath sounds B/L, No wheezing, No crackles, No rales Heart: S1S2+ RRR No murmurs Abd: Soft, NT, BS +, No organomegaly Ext: No edema, pulses are palpable, No calf tenderness Neuro : Rt side numbness, motor strength 4/5 in Rt UE and LE, [employer] 2-12 intact, Mild sensory deficit in Rt UE and LE - Assessment and Plan (1) Cerebrovascular accident Current Visit: Yes Status: Acute Assessment and Plan: Reviewed Brain MRI showed - Acute infarct within posterior limb of the left internal capsule Cont neuro checks Q 4 hour Was not a candidate for tPA due to out of window time when she came to the ER. 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 Current Visit: No Status: Acute Assessment and Plan: chronic large right cavernous carotid artery aneurysm measuring 2.0 x 1.1 CM Pt do not wanted to proceed with any further work She is aware of the complications with aneurysm she does not want to proceed with surgery (4) Hypertension Current Visit: No Status: Acute Assessment and Plan: Pt stopped taking her BP meds since Jan 2018 Prior to this hospitalization she was not on any blood pressure medication When she presented to ER her BP was significantly elevated, so placed her on Lisinopril / HCTZ and Nifedipine since her blood pressure running low now, held all her blood pressure medications (5) HLD (hyperlipidemia) Current Visit: Yes Status: Acute Assessment and Plan: Reviewed FLP LDL @ 180's switched to Lipitor 80mg HS - Time Spent with Patient Total time spent is greater than 50% in coordination of care (as documented) at patient's floor/unit and/or counseling patient: Internal Medicine: Result - Labs CBC & Chem 7: 10/06/18 11:59 10/06/18 11:59 - ABG Interpretation ABG results: PT/INR, D-dimer PT 12.1 Seconds (9.4-12.1) 10/06/18 11:59 - Impressions Impressions Head CTA 10/06/18 11:55 IMPRESSION: 1. No acute intracranial abnormality. 2. Stable large right cavernous carotid artery aneurysm measuring 2.1 x 1.0 cm 3. Moderate chronic microvascular disease within the periventricular white matter D/ / Kevin Porter MD / Kevin Porter MD Interpreting Provider: Kevin Porter MD Echocardiogram 10/07/18 09:05 Impressions: LVEF 65%. Mild left ventricular diastolic dysfunction. Normal right ventricular structure and function. Mildly dilated left atrium. No significant valvular dysfunction. No evidence of pulmonary hypertension. No evidence of PFO with agitated saline contrast. Left Ventricular Wall Motion: Rest Echo Findings All wall segments showed normal motion. Findings: Study Quality * Technically adequate exam. ECG Findings * Normal sinus rhythm. Left Ventricle * LVEF 65%. * Normal LV chamber size, wall thickness and systolic function. * Mild left ventricular diastolic dysfunction. Right Ventricle * Normal right ventricular structure and function. Left Atrium * Mildly dilated left atrium. Right Atrium * Normal right atrial size. Interatrial Septum * No evidence of PFO with agitated saline contrast. Aortic Valve * Trileaflet aortic valve with normal function. * No aortic stenosis. * No aortic regurgitation. Mitral Valve * Normal mitral valve structure. * No mitral stenosis. * Trace mitral regurgitation. Tricuspid Valve * Normal tricuspid valve structure. * No tricuspid stenosis. * Trace tricuspid regurgitation. * Unable to estimate RVSP due to lack of TR jet. * No evidence of pulmonary hypertension. * Estimated RA pressure is 3 mmHg. Pulmonic Valve * Pulmonic valve is not well visualized. * No pulmonic stenosis. * No pulmonic regurgitation. Aorta * Normally sized aortic root. Pericardium * The pericardium appears normal. IVC * The IVC is not dilated. * > 50% respiratory change Consult Discharge Plan - Plan Referrals: Srinivas Sanchez MD [Primary Care Provider] - (Unable to make appointment. Please call and schedule an appointment within 7 days of your discharge.) Luciano Jackson DO [Partnered Physician] - Prescriptions: Lisinopril-HCTZ 03-12.5 [Prinzide 03-12.5] 1 each PO DAILY #30 tablet (1) Cerebrovascular accident Qualifiers: CVA mechanism: unspecified Qualified Code(s): I63.9 - Cerebral infarction, unspecified (4) Hypertension Qualifiers: Hypertension type: essential hypertension Qualified Code(s): I10 - Essential (primary) hypertension (5) HLD (hyperlipidemia) Qualifiers: Hyperlipidemia type: unspecified Qualified Code(s): E78.5 - Hyperlipidemia, unspecified
[2018-10-09 02:53] LABS: BUN/Creatinine Ratio 27 (6-26); Blood Urea Nitrogen 24 mg/dL (8-23); Calcium 9.3 mg/dL (8.6-10.3); Carbon Dioxide 28 mEq/L (23-29); Chloride 101 mEq/L (98-107); Glucose 152 mg/dL (70-105); Osmolality,Calculated 293 (280-300); Potassium 4.2 mEq/L (3.5-5.1); Sodium 138 mEq/L (136-145); eGFR For Non-African Americans > 60 (> 60)
[2018-10-09] MEDS: Insulin LISPRO 300 UNITS/3 ML VIAL SQ SCH ×4 (07:37→20:35)
[2018-10-09] MEDS: Multivit/Ca/Min/Fe/FA 1 TAB TABLET PO SCH (08:05)
[2018-10-09] MEDS: Aspirin 81 MG TAB.CHEW PO SCH (08:05)
[2018-10-09] MEDS: Cholecalciferol (D-3) 1,000 UNIT TABLET PO SCH (08:05)
--- NOTE | 2018-10-09 13:49 | Internal Med Progress Note ---
Hospitalist Progress Note - Encounter Date of Encounter: 10/09/18 Time of Encounter: 13:31 - Subjective Interval History: He was seen and examined at bedside-patient was admitted with acute infarct within posterior limb of the left internal capsule she was seen by neurology and placed on aspirin and statin PT 13 recommending swing bed placement prior to discharge did have a low blood pressure and did not feel dizzy -blood pressure was low -rehabilitation provider requesting to keep patient over weekends or blood pressure stabilizes. Currently does not appear to be in any distress continues to experience right-sided weakness/numbness - Exam Vitals: Temp Pulse Resp BP Pulse Ox 98.3 F 69 16 107/67 97 10/09/18 11:13 10/09/18 11:13 10/09/18 11:13 10/09/18 11:13 10/09/18 11:13 Exam: Gen: Alert, awake, Oriented to time,place and person Chest: Diminished breath sounds B/L, No wheezing, No crackles, No rales Heart: S1S2+ RRR No murmurs Abd: Soft, NT, BS +, No organomegaly Ext: No edema, pulses are palpable, No calf tenderness Neuro : Rt side numbness, motor strength 4/5 in Rt UE and LE, PARTS PERSON 2-12 intact, Mild sensory deficit in Rt UE and LE - Assessment and Plan (1) Hypertension Current Visit: No Status: Acute Assessment and Plan: Pt stopped taking her BP meds since Jan 2018 Prior to this hospitalization she was not on any blood pressure medication When she presented to ER her BP was significantly elevated, so placed her on Lisinopril / HCTZ and Nifedipine since her blood pressure running low now, held all her blood pressure medi cations (2) 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 Reviewed EKG - NSR, no arrythamia cont aspirin 81 mg PO daily since she is ASA naive Cont Lipitor 80mg HS Reviewed carotid Doppler bilaterally - showed non-stenotic plaque appreciate Neurology recommendations PT / OT recommend swing bed placement possible d/c to [place] swing bed in on Thursday once her BP stabilizes d/c her BP meds now (4) Right sided weakness Current Visit: Yes Status: Acute Assessment and Plan: as above (5) HLD (hyperlipidemia) Current Visit: Yes Status: Acute Assessment and Plan: Reviewed FLP LDL @ 180's switched to Lipitor 80mg HS - Time Spent with Patient Total time spent is greater than 50% in coordination of care (as documented) at patient's floor/unit and/or counseling patient: Internal Medicine: Result - Labs CBC & Chem 7: 10/06/18 11:59 10/09/18 02:07 Labs: BMP 10/09/18 02:07 Sodium 138 Potassium 4.2 Chloride 101 Carbon Dioxide 28 BUN 24 H Creatinine 0.88 Glucose 152 H Calcium 9.3 - ABG Interpretation ABG results: PT/INR, D-dimer PT 12.1 Seconds (9.4-12.1) 10/06/18 11:59 Consult Discharge Plan - Plan Referrals: Srinivas Sanchez MD [Primary Care Provider] - (Unable to make appointment. Please call and schedule an appointment within 7 days of your discharge.) Luciaon Jackson DO [Partnered Physician] - Prescriptions: Lisinopril-HCTZ 10-12.5 [Prinzide 10-12.5] 1 each PO DAILY #30 tablet ____ (1) Hypertension Qualifiers: Hypertension type: essential hypertension Qualified Code(s): I10 - Essential (primary) hypertension (3) Cerebrovascular accident Qualifiers: CVA mechanism: unspecified Qualified Code(s): I63.9 - Cerebral infarction, unspecified (5) HLD (hyperlipidemia) Qualifiers: Hyperlipidemia type: unspecified Qualified Code(s): E78.5 - Hyperlipidemia, unspecified
[2018-10-09] MEDS ORDERED: NON-FORMULARY MEDICATION 1 EACH EACH (Alendronate Sodium [Fosamax] 70 MG) PO SCH (15:30)
[2018-10-10] MEDS: Insulin LISPRO 300 UNITS/3 ML VIAL SQ SCH ×4 (08:50→21:31)
[2018-10-10] MEDS: Cholecalciferol (D-3) 1,000 UNIT TABLET PO SCH (09:01)
[2018-10-10] MEDS: Aspirin 81 MG TAB.CHEW PO SCH (09:01)
[2018-10-10] MEDS: Multivit/Ca/Min/Fe/FA 1 TAB TABLET PO SCH (09:01)
--- NOTE | 2018-10-10 11:23 | Internal Med Progress Note ---
Hospitalist Progress Note - Encounter Date of Encounter: 10/10/18 Time of Encounter: 11:21 - Subjective Interval History: Patient was seen and examined at bedside, states right side strength has improved continues to experience right-sided numbness. Nursing reports that patient did have a large explosive diarrhea, denies any abdominal pain if continues will obtain stool sample for C. difficile - Exam Vitals: Temp Pulse Resp BP Pulse Ox 97.8 F 67 16 129/78 96 10/10/18 04:45 10/10/18 04:45 10/10/18 04:45 10/10/18 04:45 10/10/18 04:45 Exam: Gen: Alert, awake, Oriented to time,place and person Chest: Diminished breath sounds B/L, No wheezing, No crackles, No rales Heart: S1S2+ RRR No murmurs Abd: Soft, NT, BS +, No organomegaly Ext: No edema, pulses are palpable, No calf tenderness Neuro : Rt side numbness, motor strength 4/5 in Rt UE and LE, GUTTER INSTALLER 2-12 intact, Mild sensory deficit in Rt UE and LE - Assessment and Plan (1) Hypertension Current Visit: No Status: Acute Assessment and Plan: Pt stopped taking her BP meds since Jan 2018 Prior to this hospitalization she was not on any blood pressure medication When she presented to ER her BP was significantly elevated, so placed her on Lisinopril / HCTZ and Nifedipine since her blood pressure running low, held all her blood pressure medications- blood pressure seems to improve we will continue to monitor (2) 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 Reviewed EKG - NSR, no arrythamia cont aspirin 81 mg PO daily since she is ASA naive Cont Lipitor 80mg HS Reviewed carotid Doppler bilaterally - showed non-stenotic plaque appreciate Neurology recommendations PT / OT recommend swing bed placement possible d/c to [place] swing bed in on Thursday once her BP stabilizes d/c her BP meds now (4) Right sided weakness Current Visit: Yes Status: Acute Assessment and Plan: as above (5) HLD (hyperlipidemia) Current Visit: Yes Status: Acute Assessment and Plan: Reviewed FLP LDL @ 180's switched to Lipitor 80mg HS - Time Spent with Patient Total time spent is greater than 50% in coordination of care (as documented) at patient's floor/unit and/or counseling patient: Internal Medicine: Result - Labs CBC & Chem 7: 10/06/18 11:59 10/09/18 02:07 - ABG Interpretation ABG results: PT/INR, D-dimer PT 12.1 Seconds (9.4-12.1) 10/06/18 11:59 Consult Discharge Plan - Plan Referrals: Srinivas Sanchez MD [Primary Care Provider] - (Unable to make appointment. Please call and schedule an appointment within 7 days of your discharge.) Luciano Jackson DO [Partnered Physician] - Prescriptions: Lisinopril-HCTZ 10-12.5 [Prinzide 10-12.5] 1 each PO DAILY #30 tablet (1) Hypertension Qualifiers: Hypertension type: essential hypertension Qualified Code(s): I10 - Essential (primary) hypertension (3) Cerebrovascular accident Qualifiers: CVA mechanism: unspecified Qualified Code(s): I63.9 - Cerebral infarction, unspecified (5) HLD (hyperlipidemia) Qualifiers: Hyperlipidemia type: unspecified Qualified Code(s): E78.5 - Hyperlipidemia, unspecified
--- NOTE | 2018-10-10 13:44 | Electrocardiograph Report ---
[place] [id number] Test Date: 2018-10-08 Pat Name: Iona Alas Department: 113 Room: 3B22 Gender: F Financial Compliance Examiner: : 1940 Requested By: Jabari Kimbrough Order Number: [id number] Reading MD: Portillo Lilly Measurements Intervals [place] Rate: 80 P: 30 MA: 164 QRS: -20 QRSD: 82 T: 2 QT: 375 QTc: 410 Interpretive Statements SINUS RHYTHM LOW QRS VOLTAGE IN PRECORDIAL LEADS Electronically Signed On 10-10-2018 13:42:32 EDT by Portillo Lilly
[2018-10-11 04:28] LABS: Basophils # 0.1 K/mcL (0.0-0.2); Basophils % 0.7 %; Eosinophils # 0.1 K/mcL (0.0-0.6); Eosinophils % 0.7 %; Hematocrit 42.2 % (35.3-44.9); Hemoglobin 13.3 g/dL (11.5-15.4); Immature Granulocytes % 0.4 % (0-4); Lymphocytes % 30.9 %; Mean Corpuscular HGB Conc 31.5 g/dL (31.6-35.5); Mean Corpuscular Hemoglobin 28.7 pg (28.0-33.3); Mean Corpuscular Volume 91.1 fL (83.0-100.0); Mean Platelet Volume 11.1 fL (9.4-12.4); Monocytes # 1.1 K/mcL (0.0-1.3); Monocytes % 11.8 %; Neutrophils # 5.3 K/mcL (1.6-8.9); Platelet Count 252 K/mcL (140-400); Red Blood Count 4.63 M/mcL (3.82-4.97); Red Cell Distribution Width 12.9 % (11.5-14.5); Segmented Neutrophils % 55.5 %
[2018-10-11] MEDS: Cholecalciferol (D-3) 1,000 UNIT TABLET PO SCH (09:03)
[2018-10-11] MEDS: Multivit/Ca/Min/Fe/FA 1 TAB TABLET PO SCH (09:03)
[2018-10-11] MEDS: Insulin LISPRO 300 UNITS/3 ML VIAL SQ SCH ×2 (09:03→12:09)
[2018-10-11] MEDS: Aspirin 81 MG TAB.CHEW PO SCH (09:03)
--- NOTE | 2018-10-11 10:10 | Discharge Summary ---
- NOTES TO OUTPATIENT PROVIDER Notes to Outpatient Provider: f/u with PCP in one week. f/u with Neurology in 1-2 weeks. Please take Lisinopril / HCTZ 10/12.5mg If your BP stays above 140 Orders not resulted at time of discharge: Pending orders 10/06/18 16:20 EKG [ECG 12 lead ECG] [ECG] Routine Date of Encounter: 10/11/18 Time of Encounter: 10:05 - Discharge Diagnosis (1) Cerebrovascular accident Priority: Primary Status: Acute Qualifiers: CVA mechanism: unspecified Qualified Code(s): I63.9 - Cerebral infarction, unspecified (2) Right sided weakness Priority: Primary Status: Acute (3) Hypertension Priority: Secondary Status: Acute Qualifiers: Hypertension type: essential hypertension Qualified Code(s): I10 - Essential (primary) hypertension (4) 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 She denied any headache, visual changes and blurry vision. She her weakness better now however still having numbness on the right arm and lower extremity. She denied any chest pain/shortness of breath. She was admitted in the hospital and placed on analytics intern. Her EKG showed NSR, No arrhythmias noticed. Her Brain MRI showed - Acute infarct within posterior limb of the left internal capsule. Her LDL @ 198, so switched to Lipitor. She is ASA naive pt to started her on ASA 81mg now. Pt was evaluated by Neurologist. Pt was evaluated by PT / OT who recommend swing bed placement for PT / OT. She did not go to [facility] on Thursday due to her low BP and Dizziness. Pt stopped taking her BP meds since Jan 2018. Prior to this hospitalization she was not on any blood pressure medication. When she presented to ER her BP was significantly elevated, so placed her on Lisinopril / HCTZ and Nifedipine. Since her blood pressure running low on Thursday, held all her blood pressure medications. Now her BP improved in 115's now, so will d/c her to swing bed in stable condition today. - Time Spent with Patient Total time spent providing and/or coordinating discharge services: - Discharge Medications Prescriptions: New Aspirin 81 mg PO DAILY tab.chew Atorvastatin [Lipitor] 80 mg PO HS tablet Continued Omeprazole [PriLOSEC] 20 mg PO DAILY Alendronate Sodium [Fosamax] 70 mg PO QWEEK Donepezil [Aricept] 10 mg PO QPM metFORMIN [Glucophage] 500 mg PO BIDWM Changed Potassium Chloride [K-Tab ER] 10 meq PO BID #0 Home Medications: Alendronate Sodium [Fosamax] 70 mg PO QWEEK 09/03/17 [History] Omeprazole [PriLOSEC] 20 mg PO DAILY 09/03/17 [History] Donepezil [Aricept] 10 mg PO QPM 10/07/18 [History] metFORMIN [Glucophage] 500 mg PO BIDWM 10/07/18 [History] Aspirin 81 mg PO DAILY tab.chew 10/08/18 [Rx] Atorvastatin [Lipitor] 80 mg PO HS tablet 10/08/18 [Rx] Potassium Chloride [K-Tab ER] 10 meq PO BID #0 10/08/18 [Rx] Allergies/Adverse Reactions: Allergy/AdvReac Type Severity Reaction Status Date / Time No Known Allergies Allergy Verified 02/08/18 15:32 Date of admission: 10/07/18 12:18 Primary care physician: Srinivas Sanchez MD Consults: 10/06/18 15:49 Consult to Neurology [CONS] Routine Consulting Provider: Neurology [facility] Reason for Consult: Rt side weakness Time Notified: 15:49 Call Completed: Yes 10/07/18 07:54 Consult to Occupational Therapy [CONS] Routine Comment: Evaluate, develop and implement POC Reason for Consult: STROKE Does patient have active BEDREST order?: No Is patient medically & hemodynamically stable?: Yes Consult to Physical Therapy [CONS] Routine Comment: Evaluate, develop and implement POC Reason for Consult: STROKE Does patient have active BEDREST order?: No Is patient medically & hemodynamically stable?: Yes 10/08/18 07:52 Consult to Occupational Work Experience Teacher [CONS] Routine Reason for SW Consult: placement - Constitutional Vitals: Temp Pulse Resp BP Pulse Ox 98.5 F 78 17 145/84 94 10/11/18 08:20 10/11/18 08:20 10/11/18 08:20 10/11/18 08:20 10/11/18 08:20 General appearance: Present: cooperative, A&O X 3, no acute distress, answers questions appropriately Exam: Gen: Alert, awake, Oriented to time,place and person Chest: Diminished breath sounds B/L, No wheezing, No crackles, No rales Heart: S1S2+ RRR No murmurs Abd: Soft, NT, BS +, No organomegaly Ext: No edema, pulses are palpable, No calf tenderness Neuro : Rt side numbness, motor strength 4/5 in Rt UE and LE, CORK INSULATOR HELPER 2-12 intact, Mild sensory deficit in Rt UE and LE - Patient Status Disposition: Transfer SNF Condition: Good - Discharge Instructions Follow Up With: Srinivas Sanchez MD [Primary Care Provider] - (Unable to make appointment. Please call and schedule an appointment within 7 days of your discharge.) Luciano Jackson DO [Partnered Physician] - (Appt has been requested. ) - Diet and Activity Activity: increase activity as tolerated Diet: low salt diet
[2018-10-11 11:21] VITALS: BP 116/73
== END 2018-10-11 13:33 | DRG 65 ==
LOC: EMEROOARM 11:40 → 3BNU 11:40 → SUATTDRO 15:39 → 3BNU 16:26
PROVIDERS: ADMIT Student in an Organized Health Care Education/Training Program; ATTEND Family Medicine

== ENCOUNTER 2019-05-28 11:14 | Observation (INO) ==
[2019-05-28] MEDS ORDERED: 0.9 % Sodium Chloride 1,000 ML IVC ONE ×2 (11:27→11:44)
[2019-05-28] MEDS ORDERED: Ondansetron 4 MG/2 ML VIAL IVP ONE (11:27)
[2019-05-28] MEDS ORDERED: Acetaminophen 325 MG TABLET PO ONE (11:43)
[2019-05-28 11:58] LABS: Basophils % 0.2 %; Hematocrit 42.7 % (35.3-44.9); Hemoglobin 14.4 g/dL (11.5-15.4); Immature Granulocytes % 0.4 % (0-4); Lymphocytes # 1.3 K/mcL (0.6-4.6); Lymphocytes % 6.7 %; Mean Corpuscular HGB Conc 33.7 g/dL (31.6-35.5); Mean Corpuscular Hemoglobin 29.7 pg (28.0-33.3); Mean Platelet Volume 11.9 fL (9.4-12.4); Monocytes # 1.9 K/mcL (0.0-1.3); Monocytes % 9.6 %; Platelet Count 285 K/mcL (140-400); Red Blood Count 4.85 M/mcL (3.82-4.97); Red Cell Distribution Width 13.6 % (11.5-14.5); Segmented Neutrophils % 83.1 %; White Blood Count 19.3 K/mcL (4.3-11.1)
[2019-05-28 12:00] LABS: Bilirubin,Urine Moderate (Negative); Blood,Urine Negative (Negative); Clarity,Urine Cloudy (Clear); Color,Urine Dark Yellow (Yellow); Glucose,Urine (UA) Normal (Normal); Ketones,Urine 15 mg/dL (Negative); Leukocyte Esterase,Urine Small (Negative); Nitrite,Urine Negative (Negative); Protein,Urine 30 mg/dL (Neg-Trace); Specific Gravity,Urine > 1.030 (1.010-1.025); Urobilinogen,Urine Normal (Normal)
[2019-05-28 12:03] LABS: Squamous Epithelial Cell,Urine Many per lpf (None-Few)
[2019-05-28 12:14] LABS: Bacteria,Urine Few per hpf (None-Few)
[2019-05-28 12:15] LABS: Hyaline Casts,Urine None Seen per lpf (None-Few); Mucus,Urine Few per lpf (Few)
[2019-05-28] MEDS ORDERED: Piperacillin/Tazobactam 3.375 GM in 0.9 % Sodium Chloride Mini Bag 100 ML IVPB ONE (13:32)
[2019-05-28 14:31] LABS: INR 1.3; Prothrombin Time 15.3 Seconds (9.4-12.1)
[2019-05-28 14:45] LABS: Alanine Aminotransferase 29 Units/L (7-52); Albumin 3.2 g/dL (3.5-5.7); Albumin/Globulin Ratio 1.2 (1.1-2.2); Alkaline Phosphatase 104 Units/L (34-104); Aspartate Amino Transferase 41 Units/L (13-39); BUN/Creatinine Ratio 24 (6-26); Bilirubin,Direct 0.4 mg/dL (0.0-0.2); Bilirubin,Indirect 0.7 mg/dL (0.0-1.0); Bilirubin,Total 1.1 mg/dL (0.3-1.0); Blood Urea Nitrogen 17 mg/dL (8-23); Calcium 7.8 mg/dL (8.6-10.3); Carbon Dioxide 24 mEq/L (23-29); Chloride 104 mEq/L (98-107); Globulin 2.6 g/dL (2.4-3.5); Glucose 152 mg/dL (70-105); Lipase 26 Units/L (11-82); Magnesium 1.4 mg/dL (1.6-2.6); Osmolality,Calculated 283 (280-300); Phosphorous 2.2 mg/dL (2.7-4.5); Sodium 134 mEq/L (136-145); Total Protein 5.8 g/dL (6.4-8.9); Troponin I < 0.03 ng/mL (< 0.04); eGFR For African Americans > 60 (> 60); eGFR For Non-African Americans > 60 (> 60)
[2019-05-28 14:52] LABS: Creatine Kinase 73 Units/L (30-223)
[2019-05-28] MEDS ORDERED: Calcium Gluconate 1gm/50mL 1 GM/50 ML BAG IVPB ONE ×2 (14:56→19:30)
[2019-05-28] MEDS ORDERED: Ondansetron 4 MG/2 ML VIAL IVP PRN (16:59)
[2019-05-28] MEDS ORDERED: Naloxone 0.4 MG/ML INJ IVP PRN (16:59)
[2019-05-28] MEDS: Ringers Solution, Lactated 1,000 ML IVC SCH (17:34)
[2019-05-28] MEDS ORDERED: Dextrose Gel 15 GM/37.5 ML TUBE PO PRN ×2 (17:47)
[2019-05-28] MEDS ORDERED: D5% in Water 1,000 ML IVC PRN (17:47)
[2019-05-28] MEDS ORDERED: *HR* Dextrose 50 % in Water (Syg) 50 ML SYRINGE IVP PRN (17:47)
[2019-05-28] MEDS: Insulin LISPRO 300 UNITS/3 ML VIAL SQ SCH (22:19)
[2019-05-28] MEDS: Piperacillin/Tazobactam 3.375 GM in 0.9 % Sodium Chloride Mini Bag 100 ML IVPB SCH (23:50)
[2019-05-29 01:49] LABS: Basophils % 0.2 %; Immature Granulocytes % 0.5 % (0-4); Lymphocytes # 1.9 K/mcL (0.6-4.6); Mean Corpuscular HGB Conc 33.1 g/dL (31.6-35.5); Mean Corpuscular Hemoglobin 29.7 pg (28.0-33.3); Mean Corpuscular Volume 89.5 fL (83.0-100.0); Mean Platelet Volume 11.6 fL (9.4-12.4); Monocytes # 1.6 K/mcL (0.0-1.3); Monocytes % 10.1 %; Neutrophils # 12.5 K/mcL (1.6-8.9); Platelet Count 272 K/mcL (140-400); Red Blood Count 3.91 M/mcL (3.82-4.97); Red Cell Distribution Width 13.6 % (11.5-14.5); Segmented Neutrophils % 77.2 %; White Blood Count 16.2 K/mcL (4.3-11.1)
[2019-05-29 01:55] LABS: Hemoglobin 11.6 g/dL (11.5-15.4)
[2019-05-29 02:11] LABS: Alanine Aminotransferase 26 Units/L (7-52); Albumin 3.4 g/dL (3.5-5.7); Albumin/Globulin Ratio 1.3 (1.1-2.2); Alkaline Phosphatase 104 Units/L (34-104); Aspartate Amino Transferase 31 Units/L (13-39); BUN/Creatinine Ratio 17 (6-26); Bilirubin,Total 1.1 mg/dL (0.3-1.0); Blood Urea Nitrogen 12 mg/dL (8-23); Calcium 8.5 mg/dL (8.6-10.3); Carbon Dioxide 26 mEq/L (23-29); Chloride 101 mEq/L (98-107); Chol/HDL Ratio 3.2 (0-4.9); Cholesterol 120 mg/dL (< 200); Globulin 2.7 g/dL (2.4-3.5); Glucose 134 mg/dL (70-105); HDL Cholesterol 38 mg/dL (40-59); LDL Cholesterol,Calculated 70 mg/dL (0-99); Magnesium 2.6 mg/dL (1.6-2.6); Osmolality,Calculated 278 (280-300); Phosphorous 3.1 mg/dL (2.7-4.5); Sodium 133 mEq/L (136-145); Total Protein 6.1 g/dL (6.4-8.9); Triglycerides 59 mg/dL (< 150); eGFR For African Americans > 60 (> 60); eGFR For Non-African Americans > 60 (> 60)
[2019-05-29 02:35] LABS: Folate 8.3 ng/mL (3.0-16.0)
[2019-05-29 03:37] LABS: Estimated Average Glucose 137 mg/dl
[2019-05-29] MEDS: Piperacillin/Tazobactam 3.375 GM in 0.9 % Sodium Chloride Mini Bag 100 ML IVPB SCH ×3 (06:20→23:45)
[2019-05-29] MEDS: Aspirin 81 MG TAB.CHEW PO SCH (09:32)
[2019-05-29] MEDS: Acetaminophen 325 MG TABLET PO PRN (09:32)
[2019-05-29] MEDS: Insulin LISPRO 300 UNITS/3 ML VIAL SQ SCH ×4 (09:33→20:40)
[2019-05-29] MEDS: Ringers Solution, Lactated 1,000 ML IVC SCH (13:32)
[2019-05-29 13:52] LABS: Creatine Kinase 79 Units/L (30-223)
[2019-05-30] MEDS: Ringers Solution, Lactated 1,000 ML IVC SCH ×2 (04:39→10:14)
[2019-05-30 06:21] LABS: Basophils % 0.3 %; Eosinophils # 0.1 K/mcL (0.0-0.6); Eosinophils % 1.5 %; Hematocrit 32.8 % (35.3-44.9); Hemoglobin 10.8 g/dL (11.5-15.4); Immature Granulocytes % 0.3 % (0-4); Lymphocytes # 1.5 K/mcL (0.6-4.6); Lymphocytes % 16.1 %; Mean Corpuscular HGB Conc 32.9 g/dL (31.6-35.5); Mean Corpuscular Hemoglobin 29.2 pg (28.0-33.3); Mean Corpuscular Volume 88.6 fL (83.0-100.0); Mean Platelet Volume 10.7 fL (9.4-12.4); Monocytes % 10.9 %; Neutrophils # 6.7 K/mcL (1.6-8.9); Platelet Count 237 K/mcL (140-400); Red Cell Distribution Width 13.7 % (11.5-14.5); Segmented Neutrophils % 70.9 %; White Blood Count 9.4 K/mcL (4.3-11.1)
[2019-05-30] MEDS: Piperacillin/Tazobactam 3.375 GM in 0.9 % Sodium Chloride Mini Bag 100 ML IVPB SCH ×3 (06:24→21:50)
[2019-05-30] MEDS: *HR* Enoxaparin 40 MG/0.4 ML SYRINGE SQ SCH (06:30)
[2019-05-30 06:42] LABS: Alanine Aminotransferase 21 Units/L (7-52); Albumin 2.9 g/dL (3.5-5.7); Albumin/Globulin Ratio 1.2 (1.1-2.2); Alkaline Phosphatase 95 Units/L (34-104); Aspartate Amino Transferase 30 Units/L (13-39); BUN/Creatinine Ratio 11 (6-26); Bilirubin,Total 0.6 mg/dL (0.3-1.0); Blood Urea Nitrogen 8 mg/dL (8-23); Calcium 8.1 mg/dL (8.6-10.3); Carbon Dioxide 27 mEq/L (23-29); Chloride 100 mEq/L (98-107); Globulin 2.5 g/dL (2.4-3.5); Glucose 107 mg/dL (70-105); Osmolality,Calculated 283 (280-300); Potassium 3.7 mEq/L (3.5-5.1); Sodium 137 mEq/L (136-145); Total Protein 5.4 g/dL (6.4-8.9); eGFR For African Americans > 60 (> 60); eGFR For Non-African Americans > 60 (> 60)
[2019-05-30] MEDS: Insulin LISPRO 300 UNITS/3 ML VIAL SQ SCH ×4 (10:13→20:06)
[2019-05-30] MEDS: Aspirin 81 MG TAB.CHEW PO SCH (10:24)
[2019-05-30 10:37] LABS: Adenovirus F 40/41 PCR Not detected (Not detect); Astrovirus PCR Not detected (Not detect); C.difficile Toxin A/B Gene PCR Not detected (Not detect); Campylobacter by PCR Not detected (Not detect); Cryptosporidium by PCR Not detected (Not detect); Cyclospora cayetanensis PCR Not detected (Not detect); E. coli O157 by PCR Not detected (Not detect); Entamoeba histolytica PCR Not detected (Not detect); Enteroaggregative E.coli(EAEC) Not detected (Not detect); Enteropathogenic E.coli(EPEC) Not detected (Not detect); Enterotoxigenic E.coli (ETEC) Not detected (Not detect); Giardia lamblia PCR Not detected (Not detect); Norovirus GI/GII PCR Not detected (Not detect); Plesiomonas shigelloides PCR Not detected (Not detect); Rotavirus A PCR Not detected (Not detect); Salmonella PCR Not detected (Not detect); Sapovirus PCR Not detected (Not detect); Shig/EnteroinvasiveE coli EIEC Not detected (Not detect); Shigalike tox-prod E coli STEC Not detected (Not detect); Vibrio PCR Not detected (Not detect); Vibrio cholerae PCR Not detected (Not detect); Yersinia enterocolitica PCR Not detected (Not detect)
[2019-05-30] MEDS: Acetaminophen 325 MG TABLET PO PRN (16:07)
[2019-05-31 05:18] LABS: Hematocrit 32.8 % (35.3-44.9); Hemoglobin 11.1 g/dL (11.5-15.4)
[2019-05-31] MEDS: Piperacillin/Tazobactam 3.375 GM in 0.9 % Sodium Chloride Mini Bag 100 ML IVPB SCH (05:39)
[2019-05-31] MEDS: *HR* Enoxaparin 40 MG/0.4 ML SYRINGE SQ SCH (05:40)
[2019-05-31] MEDS: Insulin LISPRO 300 UNITS/3 ML VIAL SQ SCH ×4 (07:52→21:28)
[2019-05-31] MEDS: Acetaminophen 325 MG TABLET PO PRN (09:31)
[2019-05-31] MEDS: Aspirin 81 MG TAB.CHEW PO SCH (09:31)
[2019-05-31] MEDS ORDERED: Acetaminophen 325 MG TABLET PO PRN (21:09)
[2019-06-01] MEDS: *HR* Enoxaparin 40 MG/0.4 ML SYRINGE SQ SCH (05:24)
[2019-06-01] MEDS ORDERED: Ibuprofen 400 MG TABLET PO PRN (07:13)
[2019-06-01] MEDS: Aspirin 81 MG TAB.CHEW PO SCH (10:08)
[2019-06-01] MEDS: Insulin LISPRO 300 UNITS/3 ML VIAL SQ SCH ×4 (10:53→21:00)
[2019-06-02] MEDS: *HR* Enoxaparin 40 MG/0.4 ML SYRINGE SQ SCH (05:29)
[2019-06-02] MEDS: Insulin LISPRO 300 UNITS/3 ML VIAL SQ SCH ×2 (07:41→12:39)
[2019-06-02] MEDS: Aspirin 81 MG TAB.CHEW PO SCH (08:58)
[2019-06-02 09:30] LABS: Uric Acid 2.1 mg/dL (2.3-7.6)
[2019-06-02 12:20] VITALS: BP 128/73
== END 2019-06-02 12:44 ==
LOC: EMEROOARM 11:14 → 3ANU 11:14 → SUATTDRO 15:34 → 3ANU 16:34
PROVIDERS: ADMIT Internal Medicine; ATTEND Internal Medicine

== ENCOUNTER 2019-11-20 21:45 | Inpatient (IN) ==
[2019-11-20 22:55] LABS: Basophils % 0.4 %; Eosinophils # 0.1 K/mcL (0.0-0.6); Hematocrit 39.1 % (35.3-44.9); Hemoglobin 12.1 g/dL (11.5-15.4); Immature Granulocytes % 0.3 % (0-4); Lymphocytes # 3.4 K/mcL (0.6-4.6); Lymphocytes % 34.9 %; Mean Corpuscular HGB Conc 30.9 g/dL (31.6-35.5); Mean Corpuscular Hemoglobin 27.6 pg (28.0-33.3); Mean Corpuscular Volume 89.1 fL (83.0-100.0); Mean Platelet Volume 11.5 fL (9.4-12.4); Monocytes # 0.8 K/mcL (0.0-1.3); Neutrophils # 5.3 K/mcL (1.6-8.9); Platelet Count 245 K/mcL (140-400); Red Blood Count 4.39 M/mcL (3.82-4.97); Red Cell Distribution Width 16.4 % (11.5-14.5); Segmented Neutrophils % 55.4 %; White Blood Count 9.7 K/mcL (4.3-11.1)
[2019-11-20 23:09] LABS: Prothrombin Time 11.7 Seconds (9.4-12.1)
[2019-11-20 23:11] LABS: Activated Partial Thrombo Time 29.9 Seconds (26.0-36.0)
[2019-11-20 23:19] LABS: Alanine Aminotransferase 12 Units/L (7-52); Albumin/Globulin Ratio 1.5 (1.1-2.2); Alkaline Phosphatase 91 Units/L (34-104); Aspartate Amino Transferase 19 Units/L (13-39); BUN/Creatinine Ratio 23 (6-26); Bilirubin,Total 0.4 mg/dL (0.3-1.0); Blood Urea Nitrogen 17 mg/dL (8-23); Calcium 8.7 mg/dL (8.6-10.3); Carbon Dioxide 27 mEq/L (23-29); Chloride 102 mEq/L (98-107); Globulin 2.6 g/dL (2.4-3.5); Glucose 75 mg/dL (70-105); Osmolality,Calculated 288 (280-300); Potassium 4.5 mEq/L (3.5-5.1); Sodium 139 mEq/L (136-145); Total Protein 6.6 g/dL (6.4-8.9); Troponin I < 0.03 ng/mL (< 0.04); eGFR For African Americans > 60 (> 60); eGFR For Non-African Americans > 60 (> 60)
[2019-11-21 00:20] LABS: Thyroid Stimulating Hormone 3.317 mcIU/mL (0.340-5.600)
[2019-11-21 00:40] LABS: Bacteria,Urine Few per hpf (None-Few); Bilirubin,Urine Negative (Negative); Blood,Urine Trace (Negative); Clarity,Urine Clear (Clear); Color,Urine Light-Yellow (Yellow); Glucose,Urine (UA) Normal (Normal); Hyaline Casts,Urine Few per lpf (None Seen); Ketones,Urine Negative (Negative); Leukocyte Esterase,Urine Large (Negative); Mucus,Urine Few per lpf (None-Few); Nitrite,Urine Negative (Negative); Protein,Urine Trace mg/dL (Neg-Trace); Specific Gravity,Urine 1.028 (1.010-1.025); Squamous Epithelial Cell,Urine Few per hpf (None-Few); Urobilinogen,Urine Normal (Normal); WBC,Urine 50-100 per hpf (0-3)
[2019-11-21] MEDS ORDERED: cefTRIAXone 1,000 MG in Water for inj. (sterile) 10 ML IVPB ONE (00:52)
[2019-11-21] MEDS ORDERED: Aspirin 81 MG TAB.CHEW PO ONE (00:52)
[2019-11-21] MEDS: 0.9 % Sodium Chloride 1,000 ML IVC SCH ×2 (01:08→03:04)
[2019-11-21] MEDS ORDERED: Naloxone 0.4 MG/ML INJ IVP PRN (02:27)
[2019-11-21] MEDS ORDERED: Acetaminophen 325 MG TABLET PO PRN (02:27)
[2019-11-21] MEDS ORDERED: *HR* Promethazine 25 MG/ML VIAL IVP PRN (02:27)
[2019-11-21] MEDS ORDERED: 0.9 % Sodium Chloride 1,000 ML IVC SCH (04:00)
[2019-11-21 05:07] LABS: Hematocrit 33.7 % (35.3-44.9); Hemoglobin 10.6 g/dL (11.5-15.4); Mean Corpuscular HGB Conc 31.5 g/dL (31.6-35.5); Mean Corpuscular Hemoglobin 28.1 pg (28.0-33.3); Mean Corpuscular Volume 89.4 fL (83.0-100.0); Mean Platelet Volume 11.1 fL (9.4-12.4); Platelet Count 199 K/mcL (140-400); Red Blood Count 3.77 M/mcL (3.82-4.97); Red Cell Distribution Width 16.4 % (11.5-14.5); White Blood Count 7.7 K/mcL (4.3-11.1)
[2019-11-21 05:21] LABS: BUN/Creatinine Ratio 26 (6-26); Blood Urea Nitrogen 14 mg/dL (8-23); Calcium 7.9 mg/dL (8.6-10.3); Carbon Dioxide 27 mEq/L (23-29); Chloride 107 mEq/L (98-107); Glucose 81 mg/dL (70-105); Magnesium 0.9 mg/dL (1.6-2.6); Osmolality,Calculated 292 (280-300); Phosphorous 3.1 mg/dL (2.7-4.5); Sodium 141 mEq/L (136-145); eGFR For African Americans > 60 (> 60); eGFR For Non-African Americans > 60 (> 60)
[2019-11-21 09:29] LABS: Vitamin B12 189 pg/mL (250-1100); Vitamin D 25 Hydroxy 23 ng/mL (30-80)
[2019-11-21] MEDS ORDERED: *HR* Dextrose 50 % in Water (Vial) 50 ML VIAL IVP PRN (12:00)
[2019-11-21] MEDS ORDERED: D5% in Water 1,000 ML IVC PRN (12:00)
[2019-11-21] MEDS ORDERED: Dextrose Gel 15 GM/37.5 ML TUBE PO PRN ×2 (12:00)
[2019-11-21] MEDS: Insulin LISPRO 300 UNITS/3 ML VIAL SQ SCH ×3 (12:06→20:10)
[2019-11-21] MEDS: Cholecalciferol (D-3) 1,000 UNIT (25MCG) TABLET PO SCH (12:29)
[2019-11-21 13:55] LABS: Estimated Average Glucose 143 mg/dl
[2019-11-21] MEDS: *HR* Heparin 5,000 UNIT/ML VIAL SQ SCH (17:07)
[2019-11-21] MEDS: cefTRIAXone 1,000 MG in Water for inj. (sterile) 10 ML IVP SCH (17:08)
[2019-11-22] MEDS: *HR* Heparin 5,000 UNIT/ML VIAL SQ SCH ×2 (05:07→17:07)
[2019-11-22 07:19] LABS: Basophils # 0.1 K/mcL (0.0-0.2); Basophils % 0.8 %; Eosinophils # 0.1 K/mcL (0.0-0.6); Eosinophils % 1.4 %; Hematocrit 34.8 % (35.3-44.9); Hemoglobin 11.2 g/dL (11.5-15.4); Immature Granulocytes % 0.2 % (0-4); Lymphocytes # 2.1 K/mcL (0.6-4.6); Lymphocytes % 32.6 %; Mean Corpuscular HGB Conc 32.2 g/dL (31.6-35.5); Mean Corpuscular Hemoglobin 28.6 pg (28.0-33.3); Mean Platelet Volume 10.6 fL (9.4-12.4); Monocytes # 0.7 K/mcL (0.0-1.3); Monocytes % 10.5 %; Neutrophils # 3.6 K/mcL (1.6-8.9); Platelet Count 190 K/mcL (140-400); Red Blood Count 3.91 M/mcL (3.82-4.97); Red Cell Distribution Width 16.5 % (11.5-14.5); Segmented Neutrophils % 54.5 %; White Blood Count 6.6 K/mcL (4.3-11.1)
[2019-11-22 07:39] LABS: Magnesium 1.5 mg/dL (1.6-2.6); Phosphorous 3.3 mg/dL (2.7-4.5)
[2019-11-22] MEDS: Insulin LISPRO 300 UNITS/3 ML VIAL SQ SCH ×4 (07:46→22:01)
[2019-11-22] MEDS: Aspirin 81 MG TAB.CHEW PO SCH (08:03)
[2019-11-22] MEDS: Cholecalciferol (D-3) 1,000 UNIT (25MCG) TABLET PO SCH (08:03)
[2019-11-22] MEDS: lisinopriL 5 MG TABLET PO SCH (09:48)
[2019-11-22] MEDS: cefTRIAXone 1,000 MG in Water for inj. (sterile) 10 ML IVP SCH (17:08)
[2019-11-22] MEDS ORDERED: Perflutren Lipid Microsphere 1.3 ML in 0.9 % Sodium Chloride 8.7 ML IVP ONE (20:45)
[2019-11-23] MEDS: *HR* Heparin 5,000 UNIT/ML VIAL SQ SCH (05:39)
[2019-11-23 07:52] VITALS: BP 155/77
[2019-11-23] MEDS: Insulin LISPRO 300 UNITS/3 ML VIAL SQ SCH (08:00)
[2019-11-23] MEDS ORDERED: Aspirin 325 MG TABLET PO SCH (09:15)
[2019-11-23 09:19] LABS: BUN/Creatinine Ratio 20 (6-26); Blood Urea Nitrogen 12 mg/dL (8-23); Calcium 8.7 mg/dL (8.6-10.3); Carbon Dioxide 29 mEq/L (23-29); Chloride 102 mEq/L (98-107); Glucose 131 mg/dL (70-105); Magnesium 1.5 mg/dL (1.6-2.6); Osmolality,Calculated 286 (280-300); Phosphorous 3.4 mg/dL (2.7-4.5); Potassium 3.7 mEq/L (3.5-5.1); Sodium 137 mEq/L (136-145); eGFR For African Americans > 60 (> 60); eGFR For Non-African Americans > 60 (> 60)
[2019-11-23] MEDS: lisinopriL 5 MG TABLET PO SCH (09:32)
[2019-11-23] MEDS: Cholecalciferol (D-3) 1,000 UNIT (25MCG) TABLET PO SCH (09:33)
[2019-11-23] MEDS: Aspirin 81 MG TAB.CHEW PO SCH (09:47)
[2019-11-23] MEDS ORDERED: cefTRIAXone 1,000 MG in Water for inj. (sterile) 10 ML IVP SCH (11:12)
== END 2019-11-23 13:43 | disposition home health service (06) | DRG 64 ==
LOC: 3BNU 21:45 → EMEROOARM 21:45 → SUATTDRO 11-21 02:06 → 3BNU 11-21 02:21
PROVIDERS: ADMIT Student in an Organized Health Care Education/Training Program; ATTEND Internal Medicine

== ENCOUNTER 2020-03-29 10:08 | Observation (INO) ==
[2020-03-29 10:51] LABS: Basophils # 0.1 K/mcL (0.0-0.2); Basophils % 0.6 %; Eosinophils # 0.1 K/mcL (0.0-0.6); Eosinophils % 0.7 %; Hematocrit 37.7 % (35.3-44.9); Hemoglobin 11.7 g/dL (11.5-15.4); Immature Granulocytes % 0.4 % (0-4); Lymphocytes # 1.3 K/mcL (0.6-4.6); Lymphocytes % 15.2 %; Mean Corpuscular Hemoglobin 28.1 pg (28.0-33.3); Mean Corpuscular Volume 90.6 fL (83.0-100.0); Mean Platelet Volume 11.4 fL (9.4-12.4); Monocytes # 0.7 K/mcL (0.0-1.3); Monocytes % 8.4 %; Neutrophils # 6.2 K/mcL (1.6-8.9); Platelet Count 317 K/mcL (140-400); Red Blood Count 4.16 M/mcL (3.82-4.97); Red Cell Distribution Width 14.1 % (11.5-14.5); Segmented Neutrophils % 74.7 %; White Blood Count 8.3 K/mcL (4.3-11.1)
[2020-03-29 10:56] LABS: INR 1.2; Prothrombin Time 13.4 Seconds (9.4-12.1)
[2020-03-29 10:58] LABS: Activated Partial Thrombo Time 27.2 Seconds (26.0-36.0)
[2020-03-29 11:20] LABS: Bilirubin,Urine Negative (Negative); Blood,Urine Trace (Negative); Clarity,Urine Clear (Clear); Color,Urine Light-Yellow (Yellow); Glucose,Urine (UA) Normal (Normal); Ketones,Urine Negative (Negative); Leukocyte Esterase,Urine Negative (Negative); Mucus,Urine Few per lpf (None-Few); Nitrite,Urine Negative (Negative); Protein,Urine Negative (Neg-Trace); RBC,Urine 0-3 per hpf (0-3); Specific Gravity,Urine 1.016 (1.010-1.025); Squamous Epithelial Cell,Urine Few per hpf (None-Few); Urobilinogen,Urine Normal (Normal); WBC,Urine 0-3 per hpf (0-3)
[2020-03-29 11:27] LABS: BUN/Creatinine Ratio 21 (6-26); Blood Urea Nitrogen 14 mg/dL (8-23); Calcium 9.8 mg/dL (8.6-10.3); Carbon Dioxide 27 mEq/L (23-29); Chloride 101 mEq/L (98-107); Creatine Kinase 44 Units/L (30-223); Glucose 147 mg/dL (70-105); Osmolality,Calculated 291 (280-300); Potassium 4.2 mEq/L (3.5-5.1); Sodium 139 mEq/L (136-145); Troponin I < 0.03 ng/mL (< 0.04); eGFR For African Americans > 60 (> 60); eGFR For Non-African Americans > 60 (> 60)
[2020-03-29] MEDS ORDERED: Naloxone 0.4 MG/ML INJ IVP PRN (13:11)
[2020-03-29] MEDS ORDERED: Acetaminophen 325 MG TABLET PO PRN (13:11)
[2020-03-29] MEDS ORDERED: Ondansetron 4 MG/2 ML VIAL IVP PRN (13:11)
[2020-03-29 13:25] LABS: Magnesium 1.5 mg/dL (1.6-2.6)
[2020-03-29 13:38] LABS: Thyroid Stimulating Hormone 1.633 mcIU/mL (0.340-5.600)
[2020-03-29] MEDS ORDERED: D5% in Water 1,000 ML IVC PRN (14:04)
[2020-03-29] MEDS ORDERED: *HR* Dextrose 50 % in Water (Vial) 50 ML VIAL IVP PRN (14:04)
[2020-03-29] MEDS ORDERED: Dextrose Gel 15 GM/37.5 ML TUBE PO PRN ×2 (14:04)
[2020-03-29] MEDS ORDERED: Aspirin Enteric Coated 81 MG Tablet PO SCH (15:00)
[2020-03-29] MEDS: Insulin LISPRO 300 UNITS/3 ML VIAL SQ SCH ×2 (17:43→20:23)
[2020-03-29] MEDS: Aspirin 325 MG TABLET PO SCH (17:46)
[2020-03-29] MEDS: *HR* Heparin 5,000 UNIT/ML VIAL SQ SCH (20:23)
[2020-03-30 01:18] LABS: Basophils # 0.1 K/mcL (0.0-0.2); Basophils % 0.7 %; Eosinophils # 0.1 K/mcL (0.0-0.6); Eosinophils % 1.7 %; Hematocrit 31.9 % (35.3-44.9); Hemoglobin 10.3 g/dL (11.5-15.4); Immature Granulocytes % 0.3 % (0-4); Lymphocytes # 2.3 K/mcL (0.6-4.6); Lymphocytes % 30.5 %; Mean Corpuscular HGB Conc 32.3 g/dL (31.6-35.5); Mean Corpuscular Hemoglobin 28.7 pg (28.0-33.3); Mean Corpuscular Volume 88.9 fL (83.0-100.0); Mean Platelet Volume 11.4 fL (9.4-12.4); Monocytes # 0.8 K/mcL (0.0-1.3); Monocytes % 10.9 %; Neutrophils # 4.3 K/mcL (1.6-8.9); Platelet Count 289 K/mcL (140-400); Red Blood Count 3.59 M/mcL (3.82-4.97); Segmented Neutrophils % 55.9 %; White Blood Count 7.7 K/mcL (4.3-11.1)
[2020-03-30 01:19] LABS: BUN/Creatinine Ratio 22 (6-26); Blood Urea Nitrogen 13 mg/dL (8-23); Calcium 9.5 mg/dL (8.6-10.3); Carbon Dioxide 28 mEq/L (23-29); Chloride 102 mEq/L (98-107); Chol/HDL Ratio 3.8 (0-4.9); Cholesterol 132 mg/dL (< 200); Glucose 98 mg/dL (70-105); HDL Cholesterol 35 mg/dL (40-59); LDL Cholesterol,Calculated 76 mg/dL (< 100); Magnesium 1.9 mg/dL (1.6-2.6); Osmolality,Calculated 286 (280-300); Potassium 3.9 mEq/L (3.5-5.1); Sodium 138 mEq/L (136-145); Triglycerides 107 mg/dL (< 150); eGFR For African Americans > 60 (> 60); eGFR For Non-African Americans > 60 (> 60)
[2020-03-30 01:51] LABS: Estimated Average Glucose 126 mg/dl
[2020-03-30] MEDS: *HR* Heparin 5,000 UNIT/ML VIAL SQ SCH ×2 (05:20→16:50)
[2020-03-30] MEDS: Insulin LISPRO 300 UNITS/3 ML VIAL SQ SCH ×4 (08:08→22:20)
[2020-03-30] MEDS: Aspirin 325 MG TABLET PO SCH (08:13)
[2020-03-30] MEDS: Cholecalciferol (D-3) 1,000 UNIT (25MCG) TABLET PO SCH (08:13)
[2020-03-30] MEDS ORDERED: 0.9 % Sodium Chloride 1,000 ML IVC SCH (15:45)
[2020-03-31 02:59] LABS: Basophils % 0.2 %; Eosinophils % 0.4 %; Hematocrit 31.5 % (35.3-44.9); Immature Granulocytes % 0.2 % (0-4); Lymphocytes # 2.1 K/mcL (0.6-4.6); Lymphocytes % 23.3 %; Mean Corpuscular HGB Conc 31.7 g/dL (31.6-35.5); Mean Corpuscular Hemoglobin 27.9 pg (28.0-33.3); Mean Corpuscular Volume 87.7 fL (83.0-100.0); Mean Platelet Volume 10.5 fL (9.4-12.4); Monocytes # 1.2 K/mcL (0.0-1.3); Monocytes % 12.9 %; Neutrophils # 5.7 K/mcL (1.6-8.9); Platelet Count 282 K/mcL (140-400); Red Blood Count 3.59 M/mcL (3.82-4.97); Red Cell Distribution Width 13.9 % (11.5-14.5); White Blood Count 9.1 K/mcL (4.3-11.1)
[2020-03-31 03:21] LABS: BUN/Creatinine Ratio 17 (6-26); Blood Urea Nitrogen 10 mg/dL (8-23); Calcium 8.8 mg/dL (8.6-10.3); Carbon Dioxide 27 mEq/L (23-29); Chloride 103 mEq/L (98-107); Glucose 130 mg/dL (70-105); Osmolality,Calculated 285 (280-300); Potassium 3.7 mEq/L (3.5-5.1); Sodium 137 mEq/L (136-145); eGFR For African Americans > 60 (> 60); eGFR For Non-African Americans > 60 (> 60)
[2020-03-31] MEDS: *HR* Heparin 5,000 UNIT/ML VIAL SQ SCH ×2 (05:38→17:37)
[2020-03-31] MEDS ORDERED: DilTIAZem CD (24hr) 120 MG CAP.ER.24H PO SCH (09:00)
[2020-03-31] MEDS: Insulin LISPRO 300 UNITS/3 ML VIAL SQ SCH ×4 (09:05→22:08)
[2020-03-31] MEDS: Aspirin 325 MG TABLET PO SCH (09:06)
[2020-03-31] MEDS: Cholecalciferol (D-3) 1,000 UNIT (25MCG) TABLET PO SCH (09:06)
[2020-03-31] MEDS ORDERED: 0.9 % Sodium Chloride 1,000 ML IVC SCH (15:00)
[2020-04-01 04:55] LABS: BUN/Creatinine Ratio 20 (6-26); Blood Urea Nitrogen 13 mg/dL (8-23); Calcium 8.4 mg/dL (8.6-10.3); Carbon Dioxide 27 mEq/L (23-29); Chloride 106 mEq/L (98-107); Glucose 112 mg/dL (70-105); Magnesium 1.4 mg/dL (1.6-2.6); Osmolality,Calculated 287 (280-300); Potassium 3.8 mEq/L (3.5-5.1); Sodium 138 mEq/L (136-145); eGFR For African Americans > 60 (> 60); eGFR For Non-African Americans > 60 (> 60)
[2020-04-01] MEDS: *HR* Heparin 5,000 UNIT/ML VIAL SQ SCH ×2 (05:32→16:30)
[2020-04-01] MEDS: Insulin LISPRO 300 UNITS/3 ML VIAL SQ SCH ×4 (07:58→22:23)
[2020-04-01] MEDS: Cholecalciferol (D-3) 1,000 UNIT (25MCG) TABLET PO SCH (08:59)
[2020-04-01] MEDS: Aspirin 325 MG TABLET PO SCH (08:59)
[2020-04-01] MEDS ORDERED: DilTIAZem SR (12hr) 60 MG CAP.ER.12H PO SCH (09:00)
[2020-04-01] MEDS: Magnesium Oxide 400 MG TABLET PO SCH (13:37)
[2020-04-02] MEDS ORDERED: 0.9 % Sodium Chloride 1,000 ML IVC ONE (00:17)
[2020-04-02] MEDS ORDERED: 0.9 % Sodium Chloride 1,000 ML ONE (00:26)
[2020-04-02 03:45] LABS: BUN/Creatinine Ratio 20 (6-26); Blood Urea Nitrogen 21 mg/dL (8-23); Calcium 8.8 mg/dL (8.6-10.3); Carbon Dioxide 25 mEq/L (23-29); Chloride 105 mEq/L (98-107); Glucose 135 mg/dL (70-105); Magnesium 1.9 mg/dL (1.6-2.6); Osmolality,Calculated 289 (280-300); Potassium 4.2 mEq/L (3.5-5.1); Sodium 137 mEq/L (136-145); eGFR For African Americans > 60 (> 60); eGFR For Non-African Americans 51 (> 60)
[2020-04-02] MEDS: *HR* Heparin 5,000 UNIT/ML VIAL SQ SCH (05:24)
[2020-04-02] MEDS: Insulin LISPRO 300 UNITS/3 ML VIAL SQ SCH ×2 (07:50→10:54)
[2020-04-02] MEDS: Magnesium Oxide 400 MG TABLET PO SCH (08:13)
[2020-04-02] MEDS: Cholecalciferol (D-3) 1,000 UNIT (25MCG) TABLET PO SCH (08:13)
[2020-04-02] MEDS: Aspirin 325 MG TABLET PO SCH (08:13)
[2020-04-02] MEDS ORDERED: Metoprolol XL (24 HR) Succ 25 MG TAB.ER.24H PO SCH (09:15)
[2020-04-02 13:50] VITALS: BP 108/63
== END 2020-04-02 15:28 | disposition home health service (06) ==
LOC: 3ANU 10:08 → EMEROOARM 10:08 → SUATTDRO 13:09 → 3ANU 13:53
PROVIDERS: ADMIT Internal Medicine; ATTEND Internal Medicine

== ENCOUNTER 2020-05-23 17:31 | Observation (INO) ==
[2020-05-23] MEDS ORDERED: 0.9 % Sodium Chloride 1,000 ML IVC ONE ×2 (17:43→20:04)
[2020-05-23] MEDS ORDERED: Ondansetron 4 MG/2 ML VIAL IVP ONE (17:43)
[2020-05-23 17:56] LABS: Basophils % 0.5 %; Eosinophils % 0.2 %; Hematocrit 38.9 % (35.3-44.9); Hemoglobin 12.2 g/dL (11.5-15.4); Immature Granulocytes % 0.2 % (0-4); Lymphocytes # 1.9 K/mcL (0.6-4.6); Lymphocytes % 21.6 %; Mean Corpuscular HGB Conc 31.4 g/dL (31.6-35.5); Mean Corpuscular Hemoglobin 26.7 pg (28.0-33.3); Mean Corpuscular Volume 85.1 fL (83.0-100.0); Mean Platelet Volume 10.2 fL (9.4-12.4); Monocytes # 0.8 K/mcL (0.0-1.3); Monocytes % 8.8 %; Neutrophils # 5.9 K/mcL (1.6-8.9); Platelet Count 352 K/mcL (140-400); Red Blood Count 4.57 M/mcL (3.82-4.97); Red Cell Distribution Width 16.1 % (11.5-14.5); Segmented Neutrophils % 68.7 %; White Blood Count 8.7 K/mcL (4.3-11.1)
[2020-05-23 18:35] LABS: Alanine Aminotransferase 16 Units/L (7-52); Albumin/Globulin Ratio 1.3 (1.1-2.2); Alkaline Phosphatase 114 Units/L (34-104); Aspartate Amino Transferase 19 Units/L (13-39); BUN/Creatinine Ratio 24 (6-26); Bilirubin,Direct 0.1 mg/dL (0.0-0.2); Bilirubin,Indirect 0.3 mg/dL (0.0-1.0); Bilirubin,Total 0.4 mg/dL (0.3-1.0); Blood Urea Nitrogen 18 mg/dL (8-23); Calcium 9.7 mg/dL (8.6-10.3); Carbon Dioxide 27 mEq/L (23-29); Chloride 99 mEq/L (98-107); Globulin 3.1 g/dL (2.4-3.5); Glucose 145 mg/dL (70-105); Lipase 137 Units/L (11-82); Magnesium 1.8 mg/dL (1.6-2.6); Osmolality,Calculated 288 (280-300); Potassium 4.1 mEq/L (3.5-5.1); Sodium 137 mEq/L (136-145); Total Protein 7.1 g/dL (6.4-8.9); eGFR For African Americans > 60 (> 60); eGFR For Non-African Americans > 60 (> 60)
[2020-05-23 18:43] LABS: Bacteria,Urine Few per hpf (None-Few); Bilirubin,Urine Negative (Negative); Blood,Urine Negative (Negative); Clarity,Urine Clear (Clear); Color,Urine Yellow (Yellow); Glucose,Urine (UA) Normal (Normal); Ketones,Urine 10 mg/dL (Negative); Leukocyte Esterase,Urine Moderate (Negative); Mucus,Urine Few per lpf (None-Few); Nitrite,Urine Negative (Negative); Protein,Urine Trace mg/dL (Neg-Trace); RBC,Urine 0-3 per hpf (0-3); Specific Gravity,Urine 1.029 (1.010-1.025); Squamous Epithelial Cell,Urine Few per hpf (None-Few); Urobilinogen,Urine Normal (Normal); WBC,Urine 15-30 per hpf (0-3)
[2020-05-23] MEDS ORDERED: Metoprolol XL (24 HR) Succ 25 MG TAB.ER.24H PO ONE (19:15)
[2020-05-23] MEDS ORDERED: *HR* Metoprolol 5 MG/5 ML VIAL IVP STA (19:17)
[2020-05-23] MEDS ORDERED: *HR* Promethazine 25 MG/ML VIAL IM PRN (22:32)
[2020-05-23] MEDS ORDERED: Naloxone 0.4 MG/ML INJ IVP PRN (22:32)
[2020-05-23] MEDS ORDERED: Ondansetron 4 MG/2 ML VIAL IVP PRN (22:32)
[2020-05-24] MEDS: Ringers Solution, Lactated 1,000 ML IVC SCH (01:03)
[2020-05-24 04:44] LABS: Basophils % 0.4 %; Eosinophils % 0.4 %; Hematocrit 32.7 % (35.3-44.9); Immature Granulocytes % 0.4 % (0-4); Lymphocytes # 1.7 K/mcL (0.6-4.6); Lymphocytes % 18.3 %; Mean Corpuscular HGB Conc 30.6 g/dL (31.6-35.5); Mean Corpuscular Hemoglobin 26.6 pg (28.0-33.3); Mean Platelet Volume 10.6 fL (9.4-12.4); Monocytes # 0.9 K/mcL (0.0-1.3); Neutrophils # 6.5 K/mcL (1.6-8.9); Platelet Count 260 K/mcL (140-400); Red Blood Count 3.76 M/mcL (3.82-4.97); Segmented Neutrophils % 70.5 %; White Blood Count 9.2 K/mcL (4.3-11.1)
[2020-05-24 05:05] LABS: BUN/Creatinine Ratio 26 (6-26); Blood Urea Nitrogen 18 mg/dL (8-23); Calcium 8.7 mg/dL (8.6-10.3); Carbon Dioxide 29 mEq/L (23-29); Chloride 104 mEq/L (98-107); Glucose 160 mg/dL (70-105); Magnesium 1.6 mg/dL (1.6-2.6); Osmolality,Calculated 291 (280-300); Phosphorous 3.7 mg/dL (2.7-4.5); Potassium 3.8 mEq/L (3.5-5.1); Sodium 138 mEq/L (136-145); eGFR For African Americans > 60 (> 60); eGFR For Non-African Americans > 60 (> 60)
[2020-05-24] MEDS: *HR* Enoxaparin 40 MG/0.4 ML SYRINGE SQ SCH (05:45)
[2020-05-24] MEDS: Metoprolol XL (24 HR) Succ 25 MG TAB.ER.24H PO SCH (08:30)
[2020-05-24] MEDS: Magnesium Oxide 400 MG TABLET PO SCH ×2 (08:31→21:38)
[2020-05-24] MEDS: Cyanocobalamin (B-12) 1,000 MCG TABLET PO SCH (08:31)
[2020-05-24] MEDS: Aspirin 325 MG TABLET PO SCH (08:31)
[2020-05-24] MEDS: Cholecalciferol (D-3) 1,000 UNIT (25MCG) TABLET PO SCH (08:31)
[2020-05-24] MEDS: Acetaminophen 325 MG TABLET PO PRN (16:41)
[2020-05-25 02:38] LABS: Hematocrit 34.2 % (35.3-44.9); Hemoglobin 10.2 g/dL (11.5-15.4); Mean Corpuscular HGB Conc 29.8 g/dL (31.6-35.5); Mean Corpuscular Hemoglobin 26.4 pg (28.0-33.3); Mean Corpuscular Volume 88.4 fL (83.0-100.0); Mean Platelet Volume 11.1 fL (9.4-12.4); Platelet Count 266 K/mcL (140-400); Red Blood Count 3.87 M/mcL (3.82-4.97); White Blood Count 6.7 K/mcL (4.3-11.1)
[2020-05-25] MEDS: *HR* Enoxaparin 40 MG/0.4 ML SYRINGE SQ SCH (05:56)
[2020-05-25] MEDS: Cholecalciferol (D-3) 1,000 UNIT (25MCG) TABLET PO SCH (09:33)
[2020-05-25] MEDS: Aspirin 325 MG TABLET PO SCH (09:33)
[2020-05-25] MEDS: Magnesium Oxide 400 MG TABLET PO SCH ×2 (09:33→21:20)
[2020-05-25] MEDS: Cyanocobalamin (B-12) 1,000 MCG TABLET PO SCH (09:33)
[2020-05-25] MEDS: Metoprolol XL (24 HR) Succ 25 MG TAB.ER.24H PO SCH (09:34)
[2020-05-25] MEDS: Ringers Solution, Lactated 1,000 ML IVC SCH (19:08)
[2020-05-26] MEDS: *HR* Enoxaparin 40 MG/0.4 ML SYRINGE SQ SCH (05:37)
[2020-05-26 06:04] LABS: Hematocrit 29.9 % (35.3-44.9); Hemoglobin 9.4 g/dL (11.5-15.4); Mean Corpuscular HGB Conc 31.4 g/dL (31.6-35.5); Mean Corpuscular Volume 85.9 fL (83.0-100.0); Mean Platelet Volume 10.1 fL (9.4-12.4); Platelet Count 277 K/mcL (140-400); Red Blood Count 3.48 M/mcL (3.82-4.97); Red Cell Distribution Width 15.9 % (11.5-14.5); White Blood Count 7.1 K/mcL (4.3-11.1)
[2020-05-26 06:24] LABS: BUN/Creatinine Ratio 28 (6-26); Blood Urea Nitrogen 19 mg/dL (8-23); Calcium 8.8 mg/dL (8.6-10.3); Carbon Dioxide 33 mEq/L (23-29); Chloride 98 mEq/L (98-107); Glucose 127 mg/dL (70-105); Osmolality,Calculated 286 (280-300); Potassium 3.9 mEq/L (3.5-5.1); Sodium 136 mEq/L (136-145); eGFR For African Americans > 60 (> 60); eGFR For Non-African Americans > 60 (> 60)
[2020-05-26] MEDS: Aspirin 325 MG TABLET PO SCH (08:16)
[2020-05-26] MEDS: Cholecalciferol (D-3) 1,000 UNIT (25MCG) TABLET PO SCH (08:17)
[2020-05-26] MEDS: Metoprolol XL (24 HR) Succ 25 MG TAB.ER.24H PO SCH (08:17)
[2020-05-26] MEDS: Magnesium Oxide 400 MG TABLET PO SCH ×2 (08:17→20:07)
[2020-05-26] MEDS: Cyanocobalamin (B-12) 1,000 MCG TABLET PO SCH (08:18)
[2020-05-26] MEDS ORDERED: Metoprolol XL (24 HR) Succ 25 MG TAB.ER.24H PO SCH (22:00)
[2020-05-27] MEDS ORDERED: *HR* Metoprolol 5 MG/5 ML VIAL IVP ONE (01:41)
[2020-05-27] MEDS: *HR* Enoxaparin 40 MG/0.4 ML SYRINGE SQ SCH (05:57)
[2020-05-27 06:37] LABS: Hematocrit 33.5 % (35.3-44.9); Hemoglobin 10.2 g/dL (11.5-15.4); Mean Corpuscular HGB Conc 30.4 g/dL (31.6-35.5); Mean Corpuscular Hemoglobin 26.4 pg (28.0-33.3); Mean Corpuscular Volume 86.6 fL (83.0-100.0); Mean Platelet Volume 11.2 fL (9.4-12.4); Platelet Count 326 K/mcL (140-400); Red Blood Count 3.87 M/mcL (3.82-4.97); Red Cell Distribution Width 15.9 % (11.5-14.5); White Blood Count 7.1 K/mcL (4.3-11.1)
[2020-05-27 06:58] LABS: BUN/Creatinine Ratio 24 (6-26); Blood Urea Nitrogen 15 mg/dL (8-23); Calcium 8.9 mg/dL (8.6-10.3); Carbon Dioxide 32 mEq/L (23-29); Chloride 99 mEq/L (98-107); Glucose 134 mg/dL (70-105); Osmolality,Calculated 287 (280-300); Potassium 4.2 mEq/L (3.5-5.1); Sodium 137 mEq/L (136-145); eGFR For African Americans > 60 (> 60); eGFR For Non-African Americans > 60 (> 60)
[2020-05-27] MEDS: Acetaminophen 325 MG TABLET PO PRN (07:03)
[2020-05-27] MEDS: Magnesium Oxide 400 MG TABLET PO SCH ×2 (08:43→20:59)
[2020-05-27] MEDS: Aspirin 325 MG TABLET PO SCH (08:43)
[2020-05-27] MEDS: Metoprolol XL (24 HR) Succ 25 MG TAB.ER.24H PO SCH (08:43)
[2020-05-27] MEDS: Cholecalciferol (D-3) 1,000 UNIT (25MCG) TABLET PO SCH (08:43)
[2020-05-27] MEDS: Cyanocobalamin (B-12) 1,000 MCG TABLET PO SCH (08:43)
[2020-05-28 04:44] LABS: BUN/Creatinine Ratio 22 (6-26); Blood Urea Nitrogen 16 mg/dL (8-23); Calcium 9.2 mg/dL (8.6-10.3); Carbon Dioxide 36 mEq/L (23-29); Chloride 97 mEq/L (98-107); Glucose 128 mg/dL (70-105); Magnesium 1.6 mg/dL (1.6-2.6); Osmolality,Calculated 287 (280-300); Potassium 4.6 mEq/L (3.5-5.1); Sodium 137 mEq/L (136-145); eGFR For African Americans > 60 (> 60); eGFR For Non-African Americans > 60 (> 60)
[2020-05-28] MEDS: *HR* Enoxaparin 40 MG/0.4 ML SYRINGE SQ SCH (05:31)
[2020-05-28] MEDS: Magnesium Oxide 400 MG TABLET PO SCH (07:52)
[2020-05-28] MEDS: Cyanocobalamin (B-12) 1,000 MCG TABLET PO SCH (07:52)
[2020-05-28] MEDS: Metoprolol XL (24 HR) Succ 25 MG TAB.ER.24H PO SCH (07:52)
[2020-05-28] MEDS: Aspirin 325 MG TABLET PO SCH (07:53)
[2020-05-28] MEDS: Cholecalciferol (D-3) 1,000 UNIT (25MCG) TABLET PO SCH (07:53)
[2020-05-28 11:43] VITALS: BP 128/71
[2020-05-28] MEDS ORDERED: polyethylene glycoL 3350 17 GM POWD.PACK PO SCH (12:15)
[2020-05-28] MEDS ORDERED: Metoprolol XL (24 HR) Succ 25 MG TAB.ER.24H PO SCH (21:00)
== END 2020-05-28 15:50 ==
LOC: 3BNU 17:31 → EMEROOARM 17:31 → 3BNU 23:10
PROVIDERS: ADMIT Internal Medicine Nephrology; ATTEND Internal Medicine Nephrology

== ENCOUNTER 2020-06-30 20:24 | Inpatient (IN) ==
[2020-06-30 20:53] LABS: Hematocrit 44.4 % (35.3-44.9); Hemoglobin 14.2 g/dL (11.5-15.4); Mean Corpuscular Hemoglobin 26.2 pg (28.0-33.3); Mean Corpuscular Volume 82.1 fL (83.0-100.0); Mean Platelet Volume 10.3 fL (9.4-12.4); Platelet Count 202 K/mcL (140-400); Red Blood Count 5.41 M/mcL (3.82-4.97); Red Cell Distribution Width 16.4 % (11.5-14.5)
[2020-06-30 20:57] LABS: White Blood Count 21.6 K/mcL (4.3-11.1)
[2020-06-30 21:00] LABS: Bacteria,Urine Moderate per hpf (None-Few); Bilirubin,Urine Negative (Negative); Blood,Urine Small (Negative); Clarity,Urine Turbid (Clear); Color,Urine Yellow (Yellow); Glucose,Urine (UA) Normal (Normal); Ketones,Urine Negative (Negative); Leukocyte Esterase,Urine Moderate (Negative); Mucus,Urine Few per lpf (None-Few); Nitrite,Urine Positive (Negative); PH,Urine 6.5 pH Units (5.0-8.0); Protein,Urine Trace mg/dL (Neg-Trace); RBC,Urine 30-50 per hpf (0-3); Specific Gravity,Urine 1.026 (1.010-1.025); Squamous Epithelial Cell,Urine Moderate per hpf (None-Few); Urobilinogen,Urine Normal (Normal); WBC,Urine 50-100 per hpf (0-3)
[2020-06-30 21:17] LABS: Alanine Aminotransferase 14 Units/L (7-52); Albumin 3.9 g/dL (3.5-5.7); Albumin/Globulin Ratio 1.3 (1.1-2.2); Alkaline Phosphatase 93 Units/L (34-104); Aspartate Amino Transferase 35 Units/L (13-39); BUN/Creatinine Ratio 23 (6-26); Bilirubin,Total 0.4 mg/dL (0.3-1.0); Blood Urea Nitrogen 15 mg/dL (8-23); Calcium 10.3 mg/dL (8.6-10.3); Carbon Dioxide 32 mEq/L (23-29); Chloride 93 mEq/L (98-107); Globulin 2.9 g/dL (2.4-3.5); Glucose 124 mg/dL (70-105); Osmolality,Calculated 280 (280-300); Potassium 4.3 mEq/L (3.5-5.1); Sodium 134 mEq/L (136-145); Total Protein 6.8 g/dL (6.4-8.9); eGFR For African Americans > 60 (> 60); eGFR For Non-African Americans > 60 (> 60)
[2020-06-30 21:18] LABS: Troponin I 0.03 ng/mL (< 0.04)
[2020-06-30] MEDS ORDERED: CefTRIAXone 1,000 MG VIAL IM ONE (22:10)
[2020-06-30 22:26] LABS: Basophils # 0.2 K/mcL (0.0-0.2); Monocytes # 0.7 K/mcL (0.0-1.3); Neutrophils # 14.7 K/mcL (1.6-8.9); Reactive Lymphocytes Present (Not Present)
[2020-06-30 22:27] LABS: Platelet Estimate Normal (Normal)
[2020-06-30] MEDS ORDERED: cefTRIAXone 1,000 MG in Water for inj. (sterile) 10 ML IVP ONE (22:39)
[2020-06-30] MEDS ORDERED: Acetaminophen 325 MG TABLET PO PRN (23:13)
[2020-06-30] MEDS ORDERED: Ondansetron ODT 4 MG TAB.RAPDIS SL PRN (23:13)
[2020-06-30] MEDS ORDERED: Naloxone 0.4 MG/ML INJ IVP PRN (23:13)
[2020-07-01] MEDS: 0.9 % Sodium Chloride 1,000 ML IVC SCH ×2 (00:19→10:06)
[2020-07-01 05:24] LABS: Hematocrit 42.6 % (35.3-44.9); Hemoglobin 13.6 g/dL (11.5-15.4); Mean Corpuscular HGB Conc 31.9 g/dL (31.6-35.5); Mean Corpuscular Hemoglobin 26.2 pg (28.0-33.3); Mean Corpuscular Volume 81.9 fL (83.0-100.0); Mean Platelet Volume 11.1 fL (9.4-12.4); Nucleated Red Blood Cells 0.1 /100 WBC (0); Platelet Count 176 K/mcL (140-400); Red Cell Distribution Width 16.5 % (11.5-14.5); White Blood Count 21.8 K/mcL (4.3-11.1)
[2020-07-01 05:45] LABS: BUN/Creatinine Ratio 25 (6-26); Blood Urea Nitrogen 14 mg/dL (8-23); Carbon Dioxide 31 mEq/L (23-29); Chloride 93 mEq/L (98-107); Glucose 121 mg/dL (70-105); Magnesium 1.3 mg/dL (1.6-2.6); Osmolality,Calculated 282 (280-300); Phosphorous 2.4 mg/dL (2.7-4.5); Potassium 3.9 mEq/L (3.5-5.1); Sodium 135 mEq/L (136-145); eGFR For African Americans > 60 (> 60); eGFR For Non-African Americans > 60 (> 60)
[2020-07-01 05:55] LABS: Thyroid Stimulating Hormone 1.768 mcIU/mL (0.340-5.600)
[2020-07-01 06:49] LABS: Lymphocytes # 3.5 K/mcL (0.6-4.6); Monocytes # 0.9 K/mcL (0.0-1.3); Neutrophils # 16.6 K/mcL (1.6-8.9)
[2020-07-01 06:50] LABS: Platelet Estimate Normal (Normal); Reactive Lymphocytes Present (Not Present)
[2020-07-01] MEDS ORDERED: *HR* Dextrose 50 % in Water (Vial) 50 ML VIAL IVP PRN (07:59)
[2020-07-01] MEDS ORDERED: Dextrose Gel 15 GM/37.5 ML TUBE PO PRN ×2 (07:59)
[2020-07-01] MEDS ORDERED: D5% in Water 1,000 ML IVC PRN (07:59)
[2020-07-01] MEDS: Aspirin 325 MG TABLET PO SCH (08:31)
[2020-07-01] MEDS: Metoprolol XL (24 HR) Succ 25 MG TAB.ER.24H PO SCH ×2 (08:31→22:34)
[2020-07-01] MEDS: Cefepime HCl 2,000 MG in Water for inj. (sterile) 20 ML IVP SCH ×3 (08:31→23:20)
[2020-07-01] MEDS: polyethylene glycoL 3350 17 GM POWD.PACK PO SCH (08:31)
[2020-07-01] MEDS ORDERED: cefTRIAXone 1,000 MG in 0.9 % Sodium Chloride Mini Bag 100 ML IVPB SCH (09:00)
[2020-07-01] MEDS ORDERED: *HR* Labetalol 20 MG/4 ML SYRINGE IVP PRN (10:51)
[2020-07-01] MEDS: Insulin LISPRO 300 UNITS/3 ML VIAL SUBQ SCH ×3 (11:40→22:33)
[2020-07-01] MEDS ORDERED: Isovue-370 500 ML BOTTLE IVP ONE (20:14)
[2020-07-01 21:16] LABS: Basophils % 0.3 %; Eosinophils % 0.2 %; Hemoglobin 13.4 g/dL (11.5-15.4); Nucleated Red Blood Cells 0.1 /100 WBC (0)
[2020-07-01 21:17] LABS: Basophils # 0.1 K/mcL (0.0-0.2); Eosinophils # 0.1 K/mcL (0.0-0.6); Hematocrit 42.2 % (35.3-44.9); Immature Granulocytes % 13.9 % (0-4); Lymphocytes # 4.9 K/mcL (0.6-4.6); Mean Corpuscular HGB Conc 31.8 g/dL (31.6-35.5); Mean Corpuscular Hemoglobin 26.1 pg (28.0-33.3); Mean Corpuscular Volume 82.3 fL (83.0-100.0); Mean Platelet Volume 9.6 fL (9.4-12.4); Monocytes % 7.8 %; Neutrophils # 15.2 K/mcL (1.6-8.9); Platelet Count 150 K/mcL (140-400); Red Blood Count 5.13 M/mcL (3.82-4.97); Red Cell Distribution Width 16.3 % (11.5-14.5); Segmented Neutrophils % 58.8 %; White Blood Count 25.9 K/mcL (4.3-11.1)
[2020-07-01 21:36] LABS: Alanine Aminotransferase 14 Units/L (7-52); Albumin 3.7 g/dL (3.5-5.7); Albumin/Globulin Ratio 1.4 (1.1-2.2); Alkaline Phosphatase 83 Units/L (34-104); Aspartate Amino Transferase 39 Units/L (13-39); BUN/Creatinine Ratio 23 (6-26); Bilirubin,Total 0.5 mg/dL (0.3-1.0); Blood Urea Nitrogen 12 mg/dL (8-23); Calcium 9.3 mg/dL (8.6-10.3); Carbon Dioxide 28 mEq/L (23-29); Chloride 92 mEq/L (98-107); Globulin 2.6 g/dL (2.4-3.5); Glucose 138 mg/dL (70-105); Osmolality,Calculated 274 (280-300); Sodium 131 mEq/L (136-145); Total Protein 6.3 g/dL (6.4-8.9); eGFR For African Americans > 60 (> 60); eGFR For Non-African Americans > 60 (> 60)
[2020-07-01 21:51] LABS: Reactive Lymphocytes Present (Not Present)
[2020-07-01 21:52] LABS: Platelet Estimate Normal (Normal)
[2020-07-01 22:13] LABS: ABG Base Excess 6 mEq/L (-2 to 3); ABG HCO3 32 mEq/L (21-27); ABG Oxygen Saturation 96 % (95-98); ABG PCO2 55 mmHg (35-45); ABG PH 7.38 pH Units (7.32-7.45); ABG PO2 87 mmHg (85-104); ABG TCO2 34 mEq/L (20-26)
[2020-07-02 01:13] LABS: Hematocrit 41.6 % (35.3-44.9); Hemoglobin 13.5 g/dL (11.5-15.4); Mean Corpuscular HGB Conc 32.5 g/dL (31.6-35.5); Mean Corpuscular Hemoglobin 26.2 pg (28.0-33.3); Mean Corpuscular Volume 80.6 fL (83.0-100.0); Mean Platelet Volume 10.9 fL (9.4-12.4); Platelet Count 165 K/mcL (140-400); Red Blood Count 5.16 M/mcL (3.82-4.97); Red Cell Distribution Width 16.6 % (11.5-14.5)
[2020-07-02 01:24] LABS: White Blood Count 34.5 K/mcL (4.3-11.1)
[2020-07-02] MEDS ORDERED: Ertapenem 1,000 MG in 0.9 % Sodium Chloride Mini Bag 100 ML IVPB SCH (01:26)
[2020-07-02 01:36] LABS: BUN/Creatinine Ratio 24 (6-26); Blood Urea Nitrogen 12 mg/dL (8-23); Calcium 9.5 mg/dL (8.6-10.3); Carbon Dioxide 26 mEq/L (23-29); Chloride 89 mEq/L (98-107); Glucose 163 mg/dL (70-105); Osmolality,Calculated 271 (280-300); Potassium 3.9 mEq/L (3.5-5.1); Sodium 129 mEq/L (136-145); eGFR For African Americans > 60 (> 60); eGFR For Non-African Americans > 60 (> 60)
[2020-07-02] MEDS: *HR* Enoxaparin 40 MG/0.4 ML SYRINGE SQ SCH (05:11)
[2020-07-02] MEDS ORDERED: Acetaminophen IV 1,000 MG/100 ML BAG IVPB ONE (06:07)
[2020-07-02] MEDS: 0.9 % Sodium Chloride 1,000 ML IVC SCH ×2 (06:18→19:04)
[2020-07-02] MEDS ORDERED: Isovue-370 500 ML BOTTLE IVP ONE (07:25)
[2020-07-02] MEDS ORDERED: Ringers Solution, Lactated 1,000 ML IVC ONE (07:27)
[2020-07-02 10:43] LABS: VBG HCO3 29 mEq/L (21-27); VBG PCO2 47 mmHg (41-51); VBG PH 7.39 pH Units (7.32-7.42); VBG PO2 194 mmHg (25-50)
[2020-07-02] MEDS: Insulin LISPRO 300 UNITS/3 ML VIAL SUBQ SCH ×5 (11:01→23:45)
[2020-07-02] MEDS: Aspirin 325 MG TABLET PO SCH (11:02)
[2020-07-02] MEDS: polyethylene glycoL 3350 17 GM POWD.PACK PO SCH (11:02)
[2020-07-02] MEDS: Metoprolol XL (24 HR) Succ 25 MG TAB.ER.24H PO SCH ×2 (11:03→19:50)
[2020-07-02] MEDS: Meropenem 1,000 MG in Water for inj. (sterile) 20 ML IVP SCH ×3 (11:08→23:55)
[2020-07-02 12:20] LABS: Albumin 3.9 g/dL (3.5-5.7); Albumin/Globulin Ratio 1.6 (1.1-2.2); Bilirubin,Direct 0.1 mg/dL (0.0-0.2); Bilirubin,Indirect 0.4 mg/dL (0.0-1.0); Bilirubin,Total 0.5 mg/dL (0.3-1.0); Globulin 2.5 g/dL (2.4-3.5); Magnesium 1.4 mg/dL (1.6-2.6); Total Protein 6.4 g/dL (6.4-8.9)
[2020-07-03 04:35] LABS: Mean Corpuscular Volume 80.4 fL (83.0-100.0); Red Blood Count 4.85 M/mcL (3.82-4.97)
[2020-07-03 04:36] LABS: Hemoglobin 12.3 g/dL (11.5-15.4); Immature Platelets 8.7 % (1.1-6.1); Mean Corpuscular HGB Conc 31.5 g/dL (31.6-35.5); Mean Corpuscular Hemoglobin 25.4 pg (28.0-33.3); Mean Platelet Volume 10.3 fL (9.4-12.4); Platelet Count 113 K/mcL (140-400)
[2020-07-03 04:46] LABS: White Blood Count 35.4 K/mcL (4.3-11.1)
[2020-07-03 04:56] LABS: BUN/Creatinine Ratio 23 (6-26); Blood Urea Nitrogen 9 mg/dL (8-23); Carbon Dioxide 28 mEq/L (23-29); Chloride 90 mEq/L (98-107); Glucose 104 mg/dL (70-105); Magnesium 1.3 mg/dL (1.6-2.6); Osmolality,Calculated 271 (280-300); Potassium 3.1 mEq/L (3.5-5.1); Sodium 131 mEq/L (136-145); eGFR For African Americans > 60 (> 60); eGFR For Non-African Americans > 60 (> 60)
[2020-07-03] MEDS: *HR* Enoxaparin 40 MG/0.4 ML SYRINGE SQ SCH (05:20)
[2020-07-03] MEDS: 0.9 % Sodium Chloride 1,000 ML IVC SCH (05:20)
[2020-07-03] MEDS: Insulin LISPRO 300 UNITS/3 ML VIAL SUBQ SCH ×4 (05:41→23:55)
[2020-07-03] MEDS ORDERED: Gadolinium Contrast Agent (WT Based) IV PRN (07:52)
[2020-07-03] MEDS: Meropenem 1,000 MG in Water for inj. (sterile) 20 ML IVP SCH ×3 (08:32→23:55)
[2020-07-03] MEDS: Metoprolol XL (24 HR) Succ 25 MG TAB.ER.24H PO SCH ×2 (10:03→20:46)
[2020-07-03] MEDS: polyethylene glycoL 3350 17 GM POWD.PACK PO SCH (10:03)
[2020-07-03] MEDS: Aspirin 325 MG TABLET PO SCH (10:03)
[2020-07-03] MEDS ORDERED: Potassium Chloride 40 MEQ, Lidocaine 1% 2 ML in 0.9 % Sodium Chloride 500 ML IVPB ONE (10:31)
[2020-07-03 12:55] LABS: Albumin 3.6 g/dL (3.5-5.7); Albumin/Globulin Ratio 1.6 (1.1-2.2); Bilirubin,Direct 0.1 mg/dL (0.0-0.2); Bilirubin,Indirect 0.4 mg/dL (0.0-1.0); Bilirubin,Total 0.5 mg/dL (0.3-1.0); Globulin 2.3 g/dL (2.4-3.5); Total Protein 5.9 g/dL (6.4-8.9)
[2020-07-03] MEDS ORDERED: Isovue-370 500 ML BOTTLE IVP ONE (13:34)
[2020-07-03 14:52] LABS: C-Reactive Protein 13 mg/L (Less than 10); Lipase 41 Units/L (11-82)
[2020-07-03 15:54] LABS: Basophils # 0.1 K/mcL (0.0-0.2); Basophils % 0.3 %; Eosinophils % 0.1 %; Immature Granulocytes % 9.7 % (0-4); Lymphocytes # 8.6 K/mcL (0.6-4.6); Lymphocytes % 24.2 %; Monocytes # 5.6 K/mcL (0.0-1.3); Monocytes % 15.7 %; Neutrophils # 17.7 K/mcL (1.6-8.9); Nucleated Red Blood Cells 0.1 /100 WBC (0)
[2020-07-03 17:23] LABS: Adenovirus Not Detected (Not Detect); Bordetella Pertussis Not Detected (Not Detect); Chlamydophila pneumoniae Not Detected (Not Detect); Coronavirus 229E Not Detected (Not Detect); Coronavirus HKU1 Not Detected (Not Detect); Coronavirus NL63 Not Detected (Not Detect); Coronavirus OC43 Not Detected (Not Detect); Human Metapneumovirus Not Detected (Not Detect); Human Rhinovirus/Enterovirus Not Detected (Not Detect); Influenza A Subtype 2009 H1 Not Detected (Not Detect); Influenza B Not Detected (Not Detect); Mycoplasma pneumoniae Not Detected (Not Detect); Parainfluenza Virus 1 Not Detected (Not Detect); Parainfluenza Virus 2 Not Detected (Not Detect); Parainfluenza Virus 3 Not Detected (Not Detect); Parainfluenza Virus 4 Not Detected (Not Detect); Respiratory Syncytial Virus Not Detected (Not Detect)
[2020-07-03 18:54] LABS: Reactive Lymphocytes Present (Not Present)
[2020-07-04] MEDS: 0.9 % Sodium Chloride 1,000 ML IVC SCH ×4 (00:01→21:22)
[2020-07-04 03:06] LABS: Nucleated Red Blood Cells 0.1 /100 WBC (0); Red Cell Distribution Width 17.2 % (11.5-14.5)
[2020-07-04 03:08] LABS: Hematocrit 38.2 % (35.3-44.9); Hemoglobin 11.9 g/dL (11.5-15.4); Immature Platelets 7.3 % (1.1-6.1); Mean Corpuscular HGB Conc 31.2 g/dL (31.6-35.5); Mean Corpuscular Hemoglobin 25.4 pg (28.0-33.3); Mean Corpuscular Volume 81.4 fL (83.0-100.0); Mean Platelet Volume 10.5 fL (9.4-12.4); Red Blood Count 4.69 M/mcL (3.82-4.97)
[2020-07-04 03:28] LABS: BUN/Creatinine Ratio 20 (6-26); Blood Urea Nitrogen 10 mg/dL (8-23); Calcium 9.2 mg/dL (8.6-10.3); Carbon Dioxide 29 mEq/L (23-29); Chloride 94 mEq/L (98-107); Glucose 72 mg/dL (70-105); Osmolality,Calculated 276 (280-300); Potassium 3.3 mEq/L (3.5-5.1); Sodium 134 mEq/L (136-145); eGFR For African Americans > 60 (> 60); eGFR For Non-African Americans > 60 (> 60)
[2020-07-04 03:32] LABS: Platelet Count 94 K/mcL (140-400)
[2020-07-04 03:35] LABS: White Blood Count 43.7 K/mcL (4.3-11.1)
[2020-07-04 04:26] LABS: Anisocytosis 1+ (Not Present); Lymphocytes # 13.1 K/mcL (0.6-4.6); Microcytosis Present (Not Present); Monocytes # 1.8 K/mcL (0.0-1.3); Platelet Estimate Slight Decrease (Normal); Poikilocytosis 1+ (Not Present); Reactive Lymphocytes Present (Not Present)
[2020-07-04] MEDS: Insulin LISPRO 300 UNITS/3 ML VIAL SUBQ SCH ×3 (06:55→16:57)
[2020-07-04] MEDS: *HR* Enoxaparin 40 MG/0.4 ML SYRINGE SQ SCH (06:56)
[2020-07-04] MEDS: Meropenem 1,000 MG in Water for inj. (sterile) 20 ML IVP SCH (09:04)
[2020-07-04] MEDS: Aspirin 325 MG TABLET PO SCH (09:14)
[2020-07-04] MEDS: Metoprolol XL (24 HR) Succ 25 MG TAB.ER.24H PO SCH ×2 (09:14→21:17)
[2020-07-04] MEDS: polyethylene glycoL 3350 17 GM POWD.PACK PO SCH (09:14)
[2020-07-04] MEDS: cefTRIAXone 1,000 MG in Water for inj. (sterile) 10 ML IVP SCH (12:13)
[2020-07-05] MEDS: Insulin LISPRO 300 UNITS/3 ML VIAL SUBQ SCH ×4 (01:02→18:20)
[2020-07-05 03:32] LABS: VBG HCO3 31 mEq/L (21-27); VBG PCO2 49 mmHg (41-51); VBG PO2 120 mmHg (25-50)
[2020-07-05 03:33] LABS: Mean Corpuscular Hemoglobin 25.4 pg (28.0-33.3); Nucleated Red Blood Cells 0.2 /100 WBC (0)
[2020-07-05 03:35] LABS: Hemoglobin 10.4 g/dL (11.5-15.4); Immature Platelets 7.5 % (1.1-6.1); Mean Corpuscular HGB Conc 31.5 g/dL (31.6-35.5); Mean Corpuscular Volume 80.5 fL (83.0-100.0); Red Cell Distribution Width 17.1 % (11.5-14.5)
[2020-07-05 03:37] LABS: Platelet Count 71 K/mcL (140-400)
[2020-07-05 03:41] LABS: White Blood Count 63.4 K/mcL (4.3-11.1)
[2020-07-05 04:27] LABS: BUN/Creatinine Ratio 18 (6-26); Blood Urea Nitrogen 7 mg/dL (8-23); Calcium 8.5 mg/dL (8.6-10.3); Carbon Dioxide 29 mEq/L (23-29); Chloride 89 mEq/L (98-107); Glucose 114 mg/dL (70-105); Magnesium 1.2 mg/dL (1.6-2.6); Osmolality,Calculated 267 (280-300); Phosphorous 1.6 mg/dL (2.7-4.5); Potassium 3.1 mEq/L (3.5-5.1); Sodium 129 mEq/L (136-145); eGFR For African Americans > 60 (> 60); eGFR For Non-African Americans > 60 (> 60)
[2020-07-05 04:30] LABS: Lymphocytes # 22.8 K/mcL (0.6-4.6); Monocytes # 2.5 K/mcL (0.0-1.3); Neutrophils # 34.2 K/mcL (1.6-8.9)
[2020-07-05 04:31] LABS: Anisocytosis 1+ (Not Present); Platelet Estimate Decreased (Normal); Reactive Lymphocytes Present (Not Present); Toxic Granulation Present (Not Present)
[2020-07-05] MEDS ORDERED: Acetaminophen IV 1,000 MG/100 ML BAG IVPB ONE (07:58)
[2020-07-05] MEDS: Metoprolol XL (24 HR) Succ 25 MG TAB.ER.24H PO SCH (08:29)
[2020-07-05] MEDS: polyethylene glycoL 3350 17 GM POWD.PACK PO SCH (08:29)
[2020-07-05] MEDS: cefTRIAXone 1,000 MG in Water for inj. (sterile) 10 ML IVP SCH (08:37)
[2020-07-05] MEDS: 0.9 % Sodium Chloride 1,000 ML IVC SCH (08:38)
[2020-07-05] MEDS ORDERED: *HR* Labetalol 20 MG/4 ML SYRINGE IVP PRN (11:00)
[2020-07-05 12:42] LABS: Mean Corpuscular Volume 79.7 fL (83.0-100.0); Nucleated Red Blood Cells 0.2 /100 WBC (0); Red Cell Distribution Width 17.2 % (11.5-14.5)
[2020-07-05 12:44] LABS: Hematocrit 32.9 % (35.3-44.9); Hemoglobin 10.5 g/dL (11.5-15.4); Immature Platelets 8.2 % (1.1-6.1); Mean Corpuscular HGB Conc 31.9 g/dL (31.6-35.5); Mean Corpuscular Hemoglobin 25.4 pg (28.0-33.3); Mean Platelet Volume 10.5 fL (9.4-12.4); Red Blood Count 4.13 M/mcL (3.82-4.97)
[2020-07-05 12:57] LABS: Platelet Count 65 K/mcL (140-400)
[2020-07-05 13:04] LABS: White Blood Count 73.2 K/mcL (4.3-11.1)
[2020-07-05 13:08] LABS: BUN/Creatinine Ratio 19 (6-26); Blood Urea Nitrogen 8 mg/dL (8-23); Calcium 8.9 mg/dL (8.6-10.3); Carbon Dioxide 30 mEq/L (23-29); Chloride 88 mEq/L (98-107); Glucose 106 mg/dL (70-105); Osmolality,Calculated 265 (280-300); Potassium 3.7 mEq/L (3.5-5.1); Sodium 128 mEq/L (136-145); Vancomycin,Trough 3 mcg/mL (5-10); eGFR For African Americans > 60 (> 60); eGFR For Non-African Americans > 60 (> 60)
[2020-07-05 13:20] LABS: Eosinophils # 1.5 K/mcL (0.0-0.6); Lymphocytes # 27.8 K/mcL (0.6-4.6); Monocytes # 15.4 K/mcL (0.0-1.3); Neutrophils # 26.4 K/mcL (1.6-8.9); Platelet Estimate Decreased (Normal); Reactive Lymphocytes Present (Not Present); Smudge Cells Present (Not Present)
[2020-07-05 13:21] LABS: Poikilocytosis 1+ (Not Present)
[2020-07-05 13:24] LABS: Glucose,CSF 21 mg/dL (40-70); Total Protein,CSF > 200 mg/dL (15-45)
[2020-07-05] MEDS ORDERED: Potassium Phosphate 44 MEQ in 0.9 % Sodium Chloride 250 ML IVPB ONE (14:00)
[2020-07-05 14:29] LABS: Red Blood Cell,CSF 236000 RBC/mcL
[2020-07-05 15:33] LABS: Appearance,CSF Clear (Clear)
[2020-07-05] MEDS ORDERED: Ampicillin 2 GM in 0.9 % Sodium Chloride Mini Bag 100 ML IVPB SCH (16:00)
[2020-07-05] MEDS: Ampicillin 2 GM in 0.9 % Sodium Chloride Mini Bag 100 ML IVPB SCH ×2 (17:24→21:02)
[2020-07-05] MEDS: Acyclovir 600 MG in D5% in Water 100 ML IVPB SCH (17:31)
[2020-07-05] MEDS: cefTRIAXone 2,000 MG in Water for inj. (sterile) 20 ML IVP SCH (20:04)
[2020-07-06] MEDS: Insulin LISPRO 300 UNITS/3 ML VIAL SUBQ SCH ×5 (00:08→23:56)
[2020-07-06] MEDS: 0.9 % Sodium Chloride 1,000 ML IVC SCH ×3 (00:09→20:28)
[2020-07-06] MEDS: Acyclovir 600 MG in D5% in Water 100 ML IVPB SCH ×4 (00:09→23:50)
[2020-07-06] MEDS: Ampicillin 2 GM in 0.9 % Sodium Chloride Mini Bag 100 ML IVPB SCH ×7 (00:40→23:49)
[2020-07-06] MEDS ORDERED: Acetaminophen IV 500 MG/50 ML BAG IVPB ONE (03:15)
[2020-07-06 03:58] LABS: Nucleated Red Blood Cells 0.3 /100 WBC (0); Red Cell Distribution Width 17.6 % (11.5-14.5)
[2020-07-06 04:00] LABS: Hematocrit 31.8 % (35.3-44.9); Hemoglobin 10.3 g/dL (11.5-15.4); Immature Platelets 7.3 % (1.1-6.1); Mean Corpuscular HGB Conc 32.4 g/dL (31.6-35.5); Mean Corpuscular Hemoglobin 25.2 pg (28.0-33.3); Mean Corpuscular Volume 77.8 fL (83.0-100.0); Red Blood Count 4.09 M/mcL (3.82-4.97)
[2020-07-06 04:01] LABS: Platelet Count 60 K/mcL (140-400)
[2020-07-06 04:04] LABS: White Blood Count 85.1 K/mcL (4.3-11.1)
[2020-07-06 04:16] LABS: BUN/Creatinine Ratio 20 (6-26); Blood Urea Nitrogen 9 mg/dL (8-23); Calcium 8.6 mg/dL (8.6-10.3); Carbon Dioxide 29 mEq/L (23-29); Chloride 92 mEq/L (98-107); Glucose 84 mg/dL (70-105); Magnesium 1.5 mg/dL (1.6-2.6); Osmolality,Calculated 274 (280-300); Phosphorous 2.5 mg/dL (2.7-4.5); Potassium 3.6 mEq/L (3.5-5.1); Sodium 133 mEq/L (136-145); eGFR For African Americans > 60 (> 60); eGFR For Non-African Americans > 60 (> 60)
[2020-07-06 04:29] LABS: Anisocytosis 1+ (Not Present); Eosinophils # 1.7 K/mcL (0.0-0.6); Lymphocytes # 11.9 K/mcL (0.6-4.6); Monocytes # 8.5 K/mcL (0.0-1.3); Neutrophils # 35.7 K/mcL (1.6-8.9); Platelet Estimate Decreased (Normal); Poikilocytosis 1+ (Not Present); Reactive Lymphocytes Present (Not Present); Toxic Granulation Present (Not Present); Toxic Vacuolation Present (Not Present)
[2020-07-06] MEDS: cefTRIAXone 2,000 MG in Water for inj. (sterile) 20 ML IVP SCH ×2 (08:06→20:27)
[2020-07-06] MEDS: polyethylene glycoL 3350 17 GM POWD.PACK PO SCH (08:08)
[2020-07-06] MEDS ORDERED: Pantoprazole 40 MG VIAL IVP SCH (09:00)
[2020-07-06 23:55] LABS: Adenovirus Not Detected (Not Detect); Coronavirus 229E Not Detected (Not Detect); Coronavirus NL63 Not Detected (Not Detect)
[2020-07-06 23:56] LABS: Bordetella Pertussis Not Detected (Not Detect); Chlamydophila pneumoniae Not Detected (Not Detect); Coronavirus HKU1 Not Detected (Not Detect); Coronavirus OC43 Not Detected (Not Detect); Human Metapneumovirus Not Detected (Not Detect); Human Rhinovirus/Enterovirus Not Detected (Not Detect); Influenza A Subtype 2009 H1 Not Detected (Not Detect); Influenza B Not Detected (Not Detect); Mycoplasma pneumoniae Not Detected (Not Detect); Parainfluenza Virus 1 Not Detected (Not Detect); Parainfluenza Virus 2 Not Detected (Not Detect); Parainfluenza Virus 3 Not Detected (Not Detect); Parainfluenza Virus 4 Not Detected (Not Detect); Respiratory Syncytial Virus Not Detected (Not Detect); SARS-CoV-2 Not Detected (Not Detect)
[2020-07-07 01:35] LABS: Nucleated Red Blood Cells 0.2 /100 WBC (0)
[2020-07-07 01:36] LABS: Hematocrit 31.8 % (35.3-44.9); Immature Platelets 7.2 % (1.1-6.1); Mean Corpuscular HGB Conc 31.4 g/dL (31.6-35.5); Mean Corpuscular Volume 79.5 fL (83.0-100.0)
[2020-07-07 01:38] LABS: Platelet Count 53 K/mcL (140-400)
[2020-07-07 01:39] LABS: White Blood Count 90.5 K/mcL (4.3-11.1)
[2020-07-07 01:49] LABS: BUN/Creatinine Ratio 18 (6-26); Blood Urea Nitrogen 8 mg/dL (8-23); Calcium 8.3 mg/dL (8.6-10.3); Carbon Dioxide 29 mEq/L (23-29); Chloride 92 mEq/L (98-107); Glucose 89 mg/dL (70-105); Magnesium 1.6 mg/dL (1.6-2.6); Osmolality,Calculated 274 (280-300); Potassium 3.3 mEq/L (3.5-5.1); Sodium 133 mEq/L (136-145); eGFR For African Americans > 60 (> 60); eGFR For Non-African Americans > 60 (> 60)
[2020-07-07 01:57] LABS: Eosinophils # 1.8 K/mcL (0.0-0.6); Lymphocytes # 25.3 K/mcL (0.6-4.6); Monocytes # 18.1 K/mcL (0.0-1.3); Neutrophils # 21.7 K/mcL (1.6-8.9)
[2020-07-07 01:58] LABS: Anisocytosis 1+ (Not Present); Burr Cells 1+ (Not Present); Microcytosis Present (Not Present); Platelet Estimate Decreased (Normal); Poikilocytosis 1+ (Not Present); Schistocytes 1+ (Not Present); Smudge Cells Present (Not Present)
[2020-07-07] MEDS: Ampicillin 2 GM in 0.9 % Sodium Chloride Mini Bag 100 ML IVPB SCH (03:33)
[2020-07-07] MEDS: 0.9 % Sodium Chloride 1,000 ML IVC SCH (05:46)
[2020-07-07] MEDS: Insulin LISPRO 300 UNITS/3 ML VIAL SUBQ SCH (06:07)
[2020-07-07 07:38] VITALS: BP 114/79
[2020-07-07] MEDS ORDERED: *HR* Metoprolol 5 MG/5 ML VIAL IVP ONE (07:51)
== END 2020-07-07 08:20 | disposition short-term general hospital (02) | DRG 97 ==
LOC: EMEROOARM 20:24 → 3ANU 20:24 → SUATTDRO 22:55 → 3ANU 23:31 → SUATTDRO 07-02 17:13
PROVIDERS: ADMIT Student in an Organized Health Care Education/Training Program; ATTEND Internal Medicine